=== PATIENT | female | born 1945 | race Caucasian/White ===

== ENCOUNTER 2016-03-05 08:20 | Outpatient (CLI) | payer MEDICARE | END 2016-03-05 08:21 | disposition home or self-care (01) | DX: R73.09 Other abnormal glucose (principal); E55.9 Vitamin D deficiency, unspecified; Z79.899 Other long term (current) drug therapy ==

== ENCOUNTER 2016-04-02 08:58 | Outpatient (CLI) | payer MEDICARE ==
[2016-04-02 09:36] LABS: ALBUMIN/GLOBULIN RATIO 0.6 (1.0-2.2); BILIRUBIN,TOTAL 0.7 mg/dL (0.2-1.0); CALCIUM 8.9 mg/dL (8.5-10.3); CREATININE 0.7 mg/dL (0.4-1.0); POTASSIUM 3.7 mmol/L (3.5-5.0); TOTAL PROTEIN 8.1 g/dL (6.7-8.2)
[2016-04-02 09:45] LABS: BASOPHILS # (AUTO) 0.1 10^3/uL (0.0-0.1); BASOPHILS % (AUTO) 0.7 %; EOSINOPHILS # (AUTO) 0.5 10^3/uL (0.0-0.7); EOSINOPHILS % (AUTO) 5.4 %; HGB - HEMOGLOBIN 10.6 g/dL (12.0-16.0); LYMPHOCYTES % (AUTO) 21.7 %; MEAN CORPUSCULAR HEMOGLOBIN 24.8 pg (27.0-31.0); MEAN CORPUSCULAR HGB CONC 32.2 g/dL (32.0-36.0); MEAN CORPUSCULAR VOLUME 77.1 fL (81.0-99.0); MEAN PLATELET VOLUME 6.9 fL (7.9-10.8); MONOCYTES # (AUTO) 0.7 10^3/uL (0.0-1.0); MONOCYTES % (AUTO) 7.7 %; NEUTROPHILS # (AUTO) 5.9 10^3/uL (1.5-6.6); NEUTROPHILS % (AUTO) 64.5 %; RED BLOOD COUNT 4.29 10^6/uL (4.20-5.40); RED CELL DISTRIBUTION WIDTH 16.4 % (12.0-15.0); UNCORRECTED WHITE BLOOD COUNT 9.2 x10^3/uL; WHITE BLOOD COUNT 9.2 x10^3/uL (4.8-10.8)
== END 2016-04-02 08:59 | disposition home or self-care (01) ==
LOC: LAB 08:58
PROVIDERS: ATTEND Orthopaedic Surgery
DX: Z01.812 Encounter for preprocedural laboratory examination (principal); M17.12 Unilateral primary osteoarthritis, left knee
CPT/HCPCS: 36415; 80053; 85025

== ENCOUNTER 2016-04-06 08:31 | Outpatient (CLI) | payer MEDICARE | END 2016-04-06 08:32 | disposition home or self-care (01) | DX: D64.9 Anemia, unspecified (principal) ==

== ENCOUNTER 2016-04-13 11:09 | Outpatient (CLI) | payer MEDICARE | END 2016-04-13 11:10 | disposition home or self-care (01) | DX: D64.9 Anemia, unspecified (principal) ==

== ENCOUNTER 2016-05-11 11:20 | Day surgery (SDC) | payer MEDICARE ==
[2016-05-11] MEDS ORDERED: LACTATED RINGERS 1,000 ML IV ONE (11:49)
[2016-05-11] MEDS ORDERED: fentaNYL 100 MCG/2 ML VIAL IVP ONE (13:20)
[2016-05-11] MEDS ORDERED: MIDAZOLAM 2 MG/2 ML VIAL IVP ONE (13:20)
[2016-05-11] MEDS ORDERED: SIMETHICONE 40 MG/0.6 ML 30 ML BOTTLE PO ONE (13:28)
== END 2016-05-11 11:21 | disposition home or self-care (01) ==
PROC: 0DB38ZX Excision of Lower Esophagus, Via Natural or Artificial Opening Endoscopic, Diagnostic (ICD-10-PCS; principal; 2016-05-11 12:30)
DX: D64.9 Anemia, unspecified (principal); Z80.0 Family history of malignant neoplasm of digestive organs; K20.9 Esophagitis, unspecified
CPT/HCPCS: 43239; A9270; J7120

== ENCOUNTER 2016-06-02 06:39 | Outpatient (CLI) | payer MEDICARE | END 2016-06-02 06:40 | disposition home or self-care (01) | DX: D64.9 Anemia, unspecified (principal) ==

== ENCOUNTER 2016-06-15 10:54 | Day surgery (SDC) | payer MEDICARE ==
[2016-06-15] MEDS ORDERED: LACTATED RINGERS 1,000 ML IV ONE (11:15)
[2016-06-15] MEDS ORDERED: fentaNYL 250 MCG/5 ML VIAL IVP ONE (14:38)
[2016-06-15] MEDS ORDERED: MIDAZOLAM 2 MG/2 ML VIAL IVP ONE (14:38)
== END 2016-06-15 10:55 | disposition home or self-care (01) ==
PROC: 0DBE8ZX Excision of Large Intestine, Via Natural or Artificial Opening Endoscopic, Diagnostic (ICD-10-PCS; principal; 2016-06-15 12:00)
DX: D50.9 Iron deficiency anemia, unspecified (principal); K64.8 Other hemorrhoids; K63.89 Other specified diseases of intestine; Z80.0 Family history of malignant neoplasm of digestive organs; F17.200 Nicotine dependence, unspecified, uncomplicated
CPT/HCPCS: 45380; J3010; J7120

== ENCOUNTER 2016-07-01 11:45 | Outpatient (CLI) | payer MEDICARE ==
[2016-07-01] MEDS ORDERED: IOVERSOL-300 50 ML VIAL PO ONE (13:28)
[2016-07-01] MEDS ORDERED: IOPAMIDOL-300 100 ML VIAL IVP ONE (13:28)
== END 2016-07-01 11:46 | disposition home or self-care (01) ==
DX: K63.9 Disease of intestine, unspecified (principal); R59.0 Localized enlarged lymph nodes
CPT/HCPCS: 36415; 74177; 82565; Q9967

== ENCOUNTER 2016-07-10 10:28 | Outpatient (CLI) | payer MEDICARE | END 2016-07-10 10:29 | disposition home or self-care (01) | LOC: RT 10:28 | PROVIDERS: ATTEND Student in an Organized Health Care Education/Training Program | DX: Z01.810 Encounter for preprocedural cardiovascular examination (principal); K63.89 Other specified diseases of intestine | CPT/HCPCS: 93005 ==

== ENCOUNTER 2016-07-14 10:27 | Inpatient (IN) | payer MEDICARE ==
[2016-07-14] MEDS ORDERED: fent/BUPIV 2 MCG/0.125% 0 ML EP ONE (10:35)
[2016-07-14] MEDS ORDERED: LACTATED RINGERS 1,000 ML IV ONE ×3 (10:40→14:19)
[2016-07-14] MEDS ORDERED: ONDANSETRON 4 MG/2 ML VIAL IVP PRN (10:57)
[2016-07-14] MEDS ORDERED: diphenhydrAMINE INJ 50 MG/ML VIAL IVP PRN (10:57)
[2016-07-14] MEDS ORDERED: NALBUPHINE 20 MG/ML AMP IVP PRN (10:57)
[2016-07-14] MEDS ORDERED: cefOXitin 2 GM in SODIUM CHLORIDE 0.9% MINIBAG 100 ML IV SCH (11:00)
[2016-07-14] MEDS ORDERED: ROCURONIUM 50 MG/5 ML VIAL IVP ONE (14:15)
[2016-07-14] MEDS ORDERED: ONDANSETRON 4 MG/2 ML VIAL IVP ONE (14:15)
[2016-07-14] MEDS ORDERED: PROPOFOL 200 MG/20 ML VIAL IVP ONE (14:15)
[2016-07-14] MEDS ORDERED: fentaNYL 100 MCG/2 ML VIAL IVP ONE (14:15)
[2016-07-14] MEDS ORDERED: LIDOCAINE-MPF 2% 5 ML VIAL IM ONE (14:15)
[2016-07-14] MEDS ORDERED: SUCCINYLCHOLINE 200 MG/10 ML VIAL IVP ONE (14:15)
[2016-07-14] MEDS ORDERED: ROPIVACAINE 0.5% PF 20 ML AMPULE EP ONE (14:15)
[2016-07-14] MEDS ORDERED: NEOSTIGMINE 1 MG/1 ML 10 ML MDV IVP ONE (14:15)
[2016-07-14] MEDS ORDERED: MIDAZOLAM 2 MG/2 ML VIAL IVP ONE (14:15)
[2016-07-14] MEDS ORDERED: DEXAMETHASONE 4 MG/ML VIAL IVP ONE (14:15)
[2016-07-14] MEDS ORDERED: GLYCOPYRROLATE 1 MG/5 ML VIAL IVP ONE (14:15)
[2016-07-14] MEDS ORDERED: fent/BUPIV 2 MCG/0.125% 250 ML EP ONE (16:20)
[2016-07-14] MEDS ORDERED: HYDROmorphone 1 MG/ML SYRINGE ONE (16:53)
[2016-07-14] MEDS ORDERED: PHENOL THROAT SPRAY 177 ML MM PRN (17:04)
--- NOTE | 2016-07-14 17:49 | OPERATIVE REPORT ---
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 - Procedure Note Primary Surgeon: Valeria Secondary Surgeon: Deloris Anesthesia Provider: Praful Zelaya Anesthesia Technique: Epidural, General ET tube Pathology: Left colon and partial left salpinx Estimated Blood Loss (in cc): 200 Complications: None - Other Other Information/Narrative: OPERATIVE DESCRIPTION/REPORT: After verbal and written informed consent was obtained detailing the risks of infection, bleeding requiring transfusion with its risks, nerve injury, and , and after I met with the patient confirming the surgery and the site of the surgery, the patient was brought to the operative suite and placed supine on the operating table. Great care was taken to avoid pressure points to prevent pressure necrosis or nerve injury. Monitoring devices were applied along with TEDs and pneumatic compressive stockings (to prevent DVT). The patient received preoperative antibiotics for surgical prophylaxis. Praful Zelaya sedated and anethetized the patient for the entire procedure. The patient was prepped and draped in the usual sterile manner. With the patient draped my initials were clearly visible. A "time in" then confirmed that the paitient was identified with 3 identifiers (name, birthdate and medical record number), the history and physical was in the chart, the signed consent confirming the procedure was in the chart, the patient was in the correct position, the aforementioned prophylactic measures were in place or given, we had the correct personnel and equipment to complete the procedure and that anesthesia, surgery and nursing were given an opportunuty to express any concerns. With the agreement of everyone in the room, we proceeded with the operation. A midline incision was made infraumbilically and taken down to the fascia. The incision extended from the umbilicus to above the pubic tubercle. Once this was taken down to the fascia, the fascia and peritoneum were opened without incident or difficulty. The sigmoid colon was markedly redundant. The sigmoid colon was examined and the large grapefuit size tumor was easily identified within the sigmoid. The mid-sigmoid colon was selected as the proximal point of resection and a DECLAN stapler was used to transect the colon at this point. The mesentery was then taken sequentially between Graham clamps and tied using 2-0 Vicryl ties. When the mesenteric vessels were encountered these were suture-ligated using 2-0 Vicryl. The dissection continued down to the peritoneal reflection. The posterior dissection was done using finger dissection along the sacrum whereas the peritoneal attachments both anteriorly and laterally were taken using Bovie electrocautery. The left ureter was identified and avoided. Larger vasculature along the pelvic sidewalls was ligated with 2-0 Vicryl. After dissecting beyond the tumor, an Ethicon Contour stapler was obtained and placed across the distal rectum and fired. The specimen was delivered from the operative field. A 31 mm EEA stapler was obtained. An automatic pursetring device was placed across the proximal sigmoid colon and a 3-0 Prolene on a Lazaro needle was used to form the purse string. After the stapled end was removed, the anvil was placed in the open and of the colon and the purse string tied against the post of the anvil. There was enough length to the colon for it to go into the pelvis without tension. I then serially dilated the patients anus with my fingers and water-soluble lubricant in order that the stapler could be inserted. The aforementioned EEA stapler was inserted into the patients rectum through the anus and carefully directed to the staple line by me. I advanced the spike under Dr. Puentes's direction and the anvil was placed over the spike. This was screwed down tight and the stapler was fired creating the colocolostomy. The pelvis was filled with warm sterile saline and the proximal colon was obstructed between Dr. Puentes's two fingers while I introduced air through the patients anus using a proctoscope. The anastamosis was airtight. I changed into a sterile gown and gloves. The liver was palpably normal. The abdomen was copiously irrigated with warm saline. The fascia was closed using a 0 looped PDS in a running fashion. The fascial closure was started superiorly and inferiorly and run to meet in the middle. The subcutaneous tissues were copiously irrigated using warm sterile saline and meticulous hemostasis was obtained using Bovie electrocautery. The skin was approximated using skin antione. Betadine ointment and a dressing were placed on the wound. All surgical counts were reported as correct twice. Having tolerated the procedure well, the patient was taken intubated to the recovery room in good and stable condition.
[2016-07-14] MEDS: SODIUM CHLORIDE FLUSH 0.9% 10 ML SYRINGE IVP SCH (18:46)
[2016-07-14] MEDS: D5NS W/20 MEQ KCL 1,000 ML IV SCH (18:46)
[2016-07-14] MEDS ORDERED: PIPERACILLIN/TAZOBACTAM 3.375 GM in SODIUM CHLORIDE 0.9% MINIBAG 100 ML IV SCH (19:00)
[2016-07-15] MEDS: D5NS W/20 MEQ KCL 1,000 ML IV SCH ×3 (03:45→23:53)
[2016-07-15] MEDS: SODIUM CHLORIDE FLUSH 0.9% 10 ML SYRINGE IVP SCH ×3 (05:12→20:44)
[2016-07-15 05:50] LABS: BASOPHILS % (AUTO) 0.2 %; HGB - HEMOGLOBIN 9.1 g/dL (12.0-16.0); MONOCYTES # (AUTO) 0.9 10^3/uL (0.0-1.0)
[2016-07-15 05:53] LABS: HCT - HEMATOCRIT 28.6 % (37.0-47.0); LYMPHOCYTES # (AUTO) 1.3 10^3/uL (1.5-3.5); LYMPHOCYTES % (AUTO) 11.8 %; MEAN CORPUSCULAR HEMOGLOBIN 25.7 pg (27.0-31.0); MEAN CORPUSCULAR HGB CONC 31.8 g/dL (32.0-36.0); MEAN CORPUSCULAR VOLUME 80.8 fL (81.0-99.0); MEAN PLATELET VOLUME 7.1 fL (7.9-10.8); MONOCYTES % (AUTO) 8.6 %; NEUTROPHILS # (AUTO) 8.7 10^3/uL (1.5-6.6); NEUTROPHILS % (AUTO) 79.4 %; RED BLOOD COUNT 3.54 10^6/uL (4.20-5.40); RED CELL DISTRIBUTION WIDTH 16.8 % (12.0-15.0)
[2016-07-15 06:03] LABS: ALBUMIN/GLOBULIN RATIO 0.6 (1.0-2.2); BILIRUBIN,TOTAL 0.6 mg/dL (0.2-1.0); CALCIUM 8.1 mg/dL (8.5-10.3); CREATININE 0.7 mg/dL (0.4-1.0); TOTAL PROTEIN 6.2 g/dL (6.7-8.2)
[2016-07-15] MEDS: PANTOPRAZOLE 40 MG VIAL IVP SCH (06:15)
[2016-07-15] MEDS: fent/BUPIV 2 MCG/0.125% 250 ML EP PRN (06:24)
--- NOTE | 2016-07-15 17:17 | PROVIDER PROGRESS NOTE ---
Subjective - General Admit Date: 07/14/16 Procedure Date: 07/14/16 Post Op Days: 1 Procedure Performed: Left hemicolectomy with colocolostomy and partial left salpingectomy - Review of Systems Wound/Incisions: positive: Dressing dry and intact General: positive: No symptoms HEENT: positive: No symptoms Pulmonary: positive: No symptoms Cardiovascular: positive: No symptoms Gastrointestinal: positive: Abdominal pain (Minimal well controlled with epidural. Patient is very happy she opted for epidural.) Genitourinary: positive: No symptoms (Navarro in place until epidural out.) Musculoskeletal: positive: No symptoms Skin: positive: No symptoms Psychiatric: positive: No symptoms Objective - Patient Data Reviewed Vital Signs: Yes Vital Signs: Vital Signs x48h Temp Pulse Resp BP Pulse Ox 07/15/16 12:39 36.5 C 84 16 109/68 96 Weight: Weight 07/13/16 07/14/16 07/15/16 23:59 23:59 23:59 Weight (kg) 84.1 kg Intake & Output: Intake and Output Totals x24h 07/13/16 07/14/16 07/15/16 23:59 23:59 23:59 Intake Total 3168 885 Output Total 525 775 Balance 2643 110 - Lab Results Lab Results: 07/15/16 05:30 07/15/16 05:30 Other Lab Results: Lab Results x24hrs 07/15/16 07/15/16 Range/Units 05:30 05:30 WBC 11.0 H (4.8-10.8) x10^3/uL RBC 3.54 L (4.20-5.40) 10^6/uL Hgb 9.1 L (12.0-16.0) g/dL Hct 28.6 L (37.0-47.0) % MCV 80.8 L (81.0-99.0) fL MCH 25.7 L (27.0-31.0) pg MCHC 31.8 L (32.0-36.0) g/dL RDW 16.8 H (12.0-15.0) % Plt Count 288 (130-450) 10^3/uL MPV 7.1 L (7.9-10.8) fL Neut # 8.7 H (1.5-6.6) 10^3/uL Lymph # 1.3 L (1.5-3.5) 10^3/uL Meigs # 0.9 (0.0-1.0) 10^3/uL Eos # 0.0 (0.0-0.7) 10^3/uL Baso # 0.0 (0.0-0.1) 10^3/uL Absolute Nucleated RBC 0.00 x10^3/uL Nucleated RBCs 0.0 /100WBC Sodium 138 (135-145) mmol/L Potassium 4.0 (3.5-5.0) mmol/L Chloride 105 (101-111) mmol/L Carbon Dioxide 27 (21-32) mmol/L Anion Gap 6.0 (6-13) BUN 11 (6-20) mg/dL Creatinine 0.7 (0.4-1.0) mg/dL Estimated GFR (MDRD) 83 L (>89) Glucose 177 H (70-100) mg/dL Calcium 8.1 L (8.5-10.3) mg/dL Total Bilirubin 0.6 (0.2-1.0) mg/dL AST 14 (10-42) IU/L ALT 10 (10-60) IU/L Alkaline Phosphatase 66 (42-121) IU/L Total Protein 6.2 L (6.7-8.2) g/dL Albumin 2.2 L (3.2-5.5) g/dL Globulin 4.0 (2.1-4.2) g/dL Albumin/Globulin Ratio 0.6 L (1.0-2.2) - Current Medications Current Medications: Current Medications Generic Name Dose Route Start Last Admin Trade Name Freq PRN Reason Stop Dose Admin Potassium Chloride/Dextrose/Sod Cl 1,000 mls @ 100 mls/hr 07/14/16 18:00 13:43 IV 100 mls/hr .Q10H ANGELIQUE Administration Pantoprazole Sodium 40 mg 07/15/16 07:00 07/15/16 06:15 Protonix IVP 40 mg QDAC ANGELIQUE Administration Sodium Chloride 10 ml 07/14/16 22:00 07/15/16 14:04 Normal Saline Flush 0.9% IVP Not Given Q8HR ANGELIQUE - Physical Exam Wound/Incisions: positive: Dressing dry and intact General Appearance: positive: No acute distress (Watching a movie with headphones on.) Eyes Bilateral: positive: No lid inflammation, Conjunctivae nml, No scleral icterus Neck: positive: Trachea midline Respiratory: positive: Chest non-tender, No respiratory distress, Breath sounds nml Cardiovascular: positive: Regular rate & rhythm, No murmur, No gallop Abdomen: positive: Tenderness (Minimal at incision.), Abnml bowel sounds ( Decreased.) Skin: positive: Color nml Extremities: positive: Non-tender, Nml appearance Neurologic/Psychiatric: positive: Oriented x3 Impression/Plan - Problem List Problem List: D1 s/p LEFT hemicolectomy with colocolostomy and partial LEFT salpingectomy 1) FEN Continue IVF at current rate. Think that decreased H&H is dilutional and as soon as patient diureses on POD#3 expect to see rise in H&H. Continue 1000 mL of ice chips and sips daily. Check labs on Wednesday AM. 2) Pathology Expect diverticulitis as diagnosis and not malignancy but pathology is still pending. 3) Activity Patient up out of bed already twice today with one more planned. 4) Navarro Out with epidural. 5) Pain Well controlled with epidural. Really appreciate anesthesia following patient and placing epidural.
[2016-07-16] MEDS: SODIUM CHLORIDE FLUSH 0.9% 10 ML SYRINGE IVP SCH ×3 (05:52→20:23)
[2016-07-16] MEDS: PANTOPRAZOLE 40 MG VIAL IVP SCH (05:52)
[2016-07-16] MEDS: fent/BUPIV 2 MCG/0.125% 250 ML EP PRN (07:33)
[2016-07-16] MEDS: D5NS W/20 MEQ KCL 1,000 ML IV SCH ×2 (09:40→20:15)
--- NOTE | 2016-07-16 14:34 | PROVIDER PROGRESS NOTE ---
Subjective - General Admit Date: 07/14/16 Procedure Date: 07/14/16 Post Op Days: 2 Procedure Performed: Left hemicolectomy with colocolostomy and partial left salpingectomy - Review of Systems Wound/Incisions: positive: Dressing dry and intact General: positive: No symptoms HEENT: positive: No symptoms Pulmonary: positive: No symptoms Cardiovascular: positive: No symptoms Gastrointestinal: positive: Abdominal pain (Minimal well controlled with epidural. Patient is very happy she opted for epidural.) Genitourinary: positive: No symptoms (Navarro in place until epidural out.) Musculoskeletal: positive: No symptoms Skin: positive: No symptoms Psychiatric: positive: No symptoms - Other Other Information/Narrative: Pt seen at bedside. She states pain has been well controlled. she has been ambulating with PT. using IS. Has not had BM or Flatus. No issues reported by RN. Objective - Patient Data Reviewed Vital Signs: Yes Vital Signs: Vital Signs x48h Temp Pulse Resp BP Pulse Ox 07/16/16 12:11 36.7 C 85 18 133/76 H 94 07/16/16 08:36 36.5 C 84 16 146/85 H 92 Weight: Weight 07/14/16 07/15/16 07/16/16 23:59 23:59 23:59 Weight (kg) 84.1 kg Intake & Output: Intake and Output Totals x24h 07/14/16 07/15/16 07/16/16 23:59 23:59 23:59 Intake Total 3168 1900 767 Output Total 525 1525 1250 Balance 2643 358 -274 - Lab Results Lab Results: 07/15/16 05:30 07/15/16 05:30 - Current Medications Current Medications: Current Medications Generic Name Dose Route Start Last Admin Trade Name Freq PRN Reason Stop Dose Admin Fentanyl/Bupivacaine/Sodium Chlor 250 mls @ 0 mls/hr 07/14/16 10:57 07/16/16 07 :33 Fent/Bupiv 2 Mcg/0.125% EP 30 mls/hr .Q0M PRN Administration PAIN Protocol Per Protocol Potassium Chloride/Dextrose/Sod Cl 1,000 mls @ 100 mls/hr 07/14/16 18:00 09:40 IV 100 mls/hr .Q10H ANGELIQUE Administration Pantoprazole Sodium 40 mg 07/15/16 07:00 07/16/16 05:52 Protonix IVP 40 mg QDAC ANGELIQUE Administration Sodium Chloride 10 ml 07/14/16 22:00 07/16/16 05:52 Normal Saline Flush 0.9% IVP Not Given Q8HR ANGELIQUE - Physical Exam Wound/Incisions: positive: Dressing dry and intact. negative: Drainage, Erythema (Dressing changed. No erythema or discharge. staple line intact) General Appearance: positive: No acute distress Eyes Bilateral: positive: EOMI ENT: positive: No signs of dehydration Respiratory: positive: Breath sounds nml. negative: Wheezes, Rales, Rhonchi Cardiovascular: positive: Regular rate & rhythm Abdomen: positive: Nml bowel sounds (+BS, soft,ND,TTP appropriately at surgical site. No erythema, fluctuance or discharge) Skin: positive: Warm, Dry Extremities: positive: Non-tender (DP/PT 2/4 B/L, No calf edema. Ar cui inplace. Negative Uma's B/L) Neurologic/Psychiatric: positive: Oriented x3 Impression/Plan - Problem List Problem List: Problem List: D1 s/p Left hemicolectomy with colocolostomy and partial LEFT salpingectomy POD# 2 1) FEN Continue IVF at current rate. 1000mL of Ice chips/sips daily 2) Pathology pending 3) Activity OOB with PT 4) Continue Navarro for epidural 5) Pain Well controlled with epidural. Really appreciate anesthesia following patient and placing epidural. 6) Am labs GI prophylaxis: Protonix DVT prophylaxis: Ar cui scds, will begin HSQ
[2016-07-16] MEDS: HEPARIN 5,000 UNIT/ML VIAL SUBQ SCH (20:15)
[2016-07-17] MEDS: D5NS W/20 MEQ KCL 1,000 ML IV SCH ×2 (04:51→15:55)
[2016-07-17] MEDS: SODIUM CHLORIDE FLUSH 0.9% 10 ML SYRINGE IVP SCH ×3 (05:06→23:29)
[2016-07-17 06:07] LABS: BASOPHILS % (AUTO) 0.7 %; EOSINOPHILS # (AUTO) 0.4 10^3/uL (0.0-0.7); EOSINOPHILS % (AUTO) 5.8 %; HCT - HEMATOCRIT 29.1 % (37.0-47.0); HGB - HEMOGLOBIN 9.2 g/dL (12.0-16.0); LYMPHOCYTES # (AUTO) 1.9 10^3/uL (1.5-3.5); LYMPHOCYTES % (AUTO) 27.4 %; MEAN CORPUSCULAR HEMOGLOBIN 25.7 pg (27.0-31.0); MEAN CORPUSCULAR HGB CONC 31.6 g/dL (32.0-36.0); MEAN CORPUSCULAR VOLUME 81.5 fL (81.0-99.0); MEAN PLATELET VOLUME 7.1 fL (7.9-10.8); MONOCYTES # (AUTO) 0.6 10^3/uL (0.0-1.0); MONOCYTES % (AUTO) 8.8 %; NEUTROPHILS % (AUTO) 57.3 %; RED BLOOD COUNT 3.58 10^6/uL (4.20-5.40); RED CELL DISTRIBUTION WIDTH 16.5 % (12.0-15.0); UNCORRECTED WHITE BLOOD COUNT 7.1 x10^3/uL; WHITE BLOOD COUNT 7.1 x10^3/uL (4.8-10.8)
[2016-07-17 06:18] LABS: ALBUMIN/GLOBULIN RATIO 0.5 (1.0-2.2); BILIRUBIN,TOTAL 0.5 mg/dL (0.2-1.0); BUN - BLOOD UREA NITROGEN 5 mg/dL (6-20); CALCIUM 8.6 mg/dL (8.5-10.3); CARBON DIOXIDE - CO2 29 mmol/L (21-32); CHLORIDE 103 mmol/L (101-111); CREATININE 0.7 mg/dL (0.4-1.0); GFR - MDRD 83 (>89); GLUCOSE 133 mg/dL (70-100); POTASSIUM 3.7 mmol/L (3.5-5.0); SODIUM 138 mmol/L (135-145); TOTAL PROTEIN 6.5 g/dL (6.7-8.2)
[2016-07-17] MEDS: PANTOPRAZOLE 40 MG VIAL IVP SCH (06:22)
[2016-07-17] MEDS: SODIUM CHLORIDE FLUSH 0.9% 10 ML SYRINGE IVP PRN (06:22)
[2016-07-17] MEDS: HEPARIN 5,000 UNIT/ML VIAL SUBQ SCH ×2 (09:33→22:01)
[2016-07-17] MEDS: fent/BUPIV 2 MCG/0.125% 250 ML EP PRN (16:20)
[2016-07-17] MEDS ORDERED: MORPHINE PCA 50 MG IV PRN (21:23)
--- NOTE | 2016-07-17 23:21 | PROVIDER PROGRESS NOTE ---
Subjective - General Admit Date: 07/14/16 Procedure Date: 07/14/16 Post Op Days: 3 Procedure Performed: Left hemicolectomy with colocolostomy and partial left salpingectomy - Review of Systems Wound/Incisions: positive: Dressing dry and intact, No drainage. negative: Drainage, Erythema (Dressing changed. No erythema or discharge. staple line intact) General: positive: No symptoms HEENT: positive: No symptoms Pulmonary: positive: No symptoms Cardiovascular: positive: No symptoms Gastrointestinal: positive: Abdominal pain (Minimal well controlled with epidural. Patient is very happy she opted for epidural.) Genitourinary: positive: No symptoms Musculoskeletal: positive: No symptoms Skin: positive: No symptoms Psychiatric: positive: No symptoms - Other Other Information/Narrative: pt seen at bedside, No complaints. Ambulating with PT, Using IS. No BM or flatus Objective - Patient Data Reviewed Vital Signs: Yes Vital Signs: Vital Signs x48h Temp Pulse Resp BP Pulse Ox 07/17/16 17:10 36.4 C L 75 16 128/80 97 Intake & Output: Intake and Output Totals x24h 07/15/16 07/16/16 07/17/16 23:59 23:59 23:59 Intake Total 1900 867 781 Output Total 1525 9120 8960 Balance 741 -9588 -1908 - Lab Results Lab Results: 07/17/16 05:26 07/17/16 05:26 Other Lab Results: Lab Results x24hrs 07/17/16 07/17/16 Range/Units 05:26 05:26 WBC 7.1 (4.8-10.8) x10^3/uL RBC 3.58 L (4.20-5.40) 10^6/uL Hgb 9.2 L (12.0-16.0) g/dL Hct 29.1 L (37.0-47.0) % MCV 81.5 (81.0-99.0) fL MCH 25.7 L (27.0-31.0) pg MCHC 31.6 L (32.0-36.0) g/dL RDW 16.5 H (12.0-15.0) % Plt Count 273 (130-450) 10^3/uL MPV 7.1 L (7.9-10.8) fL Neut # 4.0 (1.5-6.6) 10^3/uL Lymph # 1.9 (1.5-3.5) 10^3/uL Gregory # 0.6 (0.0-1.0) 10^3/uL Eos # 0.4 (0.0-0.7) 10^3/uL Baso # 0.0 (0.0-0.1) 10^3/uL Absolute Nucleated RBC 0.00 x10^3/uL Nucleated RBCs 0.0 /100WBC Sodium 138 (135-145) mmol/L Potassium 3.7 (3.5-5.0) mmol/L Chloride 103 (101-111) mmol/L Carbon Dioxide 29 (21-32) mmol/L Anion Gap 6.0 (6-13) BUN 5 L (6-20) mg/dL Creatinine 0.7 (0.4-1.0) mg/dL Estimated GFR (MDRD) 83 L (>89) Glucose 133 H (70-100) mg/dL Calcium 8.6 (8.5-10.3) mg/dL Total Bilirubin 0.5 (0.2-1.0) mg/dL AST 14 (10-42) IU/L ALT < 10 L (10-60) IU/L Alkaline Phosphatase 65 (42-121) IU/L Total Protein 6.5 L (6.7-8.2) g/dL Albumin 2.3 L (3.2-5.5) g/dL Globulin 4.2 (2.1-4.2) g/dL Albumin/Globulin Ratio 0.5 L (1.0-2.2) - Current Medications Current Medications: Current Medications Generic Name Dose Route Start Last Admin Trade Name Freq PRN Reason Stop Dose Admin Heparin Sodium (Porcine) 5,000 unit 07/16/16 21:00 07/17/16 22:01 SUBQ Not Given BID ANGELIQUE Fentanyl/Bupivacaine/Sodium Chlor 250 mls @ 0 mls/hr 07/14/16 10:57 07/17/16 16 :20 Fent/Bupiv 2 Mcg/0.125% EP 2 mls/hr .Q0M PRN Administration PAIN Protocol Per Protocol Potassium Chloride/Dextrose/Sod Cl 1,000 mls @ 100 mls/hr 07/14/16 18:00 15:55 IV 100 mls/hr .Q10H ANGELIQUE Administration Morphine Sulfate/Sodium Chloride 50 mg 07/17/16 21:23 07/17/16 22:21 Morphine Patient Care Manager (Use Patient Care Manager Order Set) IV 50 mg OFFICE HELPER CLERICAL PRN Administration PAIN Protocol Pantoprazole Sodium 40 mg 07/15/16 07:00 07/17/16 06:22 Protonix IVP 40 mg QDAC ANGELIQUE Administration Sodium Chloride 10 ml 07/14/16 17:04 07/17/16 06:22 Normal Saline Flush 0.9% IVP 10 ml PRN PRN Administration NEEDED PER PROVIDER ORDERS Sodium Chloride 10 ml 07/14/16 22:00 07/17/16 14:51 Normal Saline Flush 0.9% IVP Not Given Q8HR ANGELIQUE - Physical Exam Wound/Incisions: positive: Healing well, No drainage General Appearance: positive: Alert Eyes Bilateral: positive: EOMI ENT: positive: No signs of dehydration Respiratory: positive: Chest non-tender, Breath sounds nml Abdomen: positive: No distention (Hypoactive BS, Soft, NT, No distention) Skin: positive: Warm, Dry Extremities: positive: Full ROM Impression/Plan - Problem List Problem List: D1 s/p Left hemicolectomy with colocolostomy and partial LEFT salpingectomy POD# 3 FEN Continue IVF at current rate. 1000mL of Ice chips/sips daily Epidural to be removed by anesthesia. Will begin morphine OFFICE HELPER CLERICAL IV acetaminophen. Continue ambulation. Continue IS. Continue SCD'S, and Gi prophylaxis
[2016-07-17] MEDS: ACETAMINOPHEN 1,000 MG/100 ML 100 ML IV SCH (23:48)
[2016-07-18] MEDS: D5NS W/20 MEQ KCL 1,000 ML IV SCH ×2 (01:27→10:13)
[2016-07-18] MEDS: SODIUM CHLORIDE FLUSH 0.9% 10 ML SYRINGE IVP PRN (04:57)
[2016-07-18] MEDS: ACETAMINOPHEN 1,000 MG/100 ML 100 ML IV SCH ×4 (05:07→21:44)
[2016-07-18] MEDS: PANTOPRAZOLE 40 MG VIAL IVP SCH (06:39)
[2016-07-18] MEDS: SODIUM CHLORIDE FLUSH 0.9% 10 ML SYRINGE IVP SCH ×3 (06:39→21:44)
[2016-07-18] MEDS: HEPARIN 5,000 UNIT/ML VIAL SUBQ SCH (09:11)
[2016-07-18] MEDS ORDERED: D5NS W/20 MEQ KCL 1,000 ML IV SCH (12:06)
--- NOTE | 2016-07-18 12:09 | PROVIDER PROGRESS NOTE ---
Subjective - General Admit Date: 07/14/16 Procedure Date: 07/14/16 Post Op Days: 4 Procedure Performed: Left hemicolectomy with colocolostomy and partial left salpingectomy - Review of Systems Wound/Incisions: positive: Healing well, No drainage General: positive: No symptoms HEENT: positive: No symptoms Pulmonary: positive: No symptoms Cardiovascular: positive: No symptoms Gastrointestinal: positive: Abdominal pain (Minimal well controlled with epidural. Patient is very happy she opted for epidural.) Genitourinary: positive: No symptoms Musculoskeletal: positive: No symptoms Skin: positive: No symptoms Psychiatric: positive: No symptoms - Other Other Information/Narrative: Pt seen at bedside. No C/O . Ambulating, using IS, Passed flatus. Pain well controlled. Urinating well. No events reported by RN Objective - Patient Data Vital Signs: Vital Signs x48h Temp Pulse Resp BP Pulse Ox 07/18/16 11:00 18 07/18/16 09:00 16 07/18/16 07:36 36.5 C 69 18 118/76 97 07/18/16 07:00 16 07/18/16 06:57 16 07/18/16 05:10 16 Intake & Output: Intake and Output Totals x24h 07/16/16 07/17/16 07/18/16 23:59 23:59 23:59 Intake Total 867 1922 883 Output Total 3550 3650 1425 [facility] -[phone] - Lab Results Lab Results: 07/17/16 05:26 07/17/16 05:26 - Current Medications Current Medications: Current Medications Generic Name Dose Route Start Last Admin Trade Name Freq PRN Reason Stop Dose Admin Heparin Sodium (Porcine) 5,000 unit 07/16/16 21:00 07/18/16 09:11 SUBQ 5,000 unit BID ANGELIQUE Administration Fentanyl/Bupivacaine/Sodium Chlor 250 mls @ 0 mls/hr 07/14/16 10:57 07/17/16 16 :20 Fent/Bupiv 2 Mcg/0.125% EP 2 mls/hr .Q0M PRN Administration PAIN Protocol Per Protocol Acetaminophen 100 mls @ 400 mls/hr 07/17/16 22:00 07/18/16 10:10 Ofirmev IV 07/19/16 21:59 400 mls/hr Q6H ANGELIQUE Administration Morphine Sulfate/Sodium Chloride 50 mg 07/17/16 21:23 07/17/16 22:21 Morphine Field Cane Scaler (Use Field Cane Scaler Order Set) IV 50 mg RAYON WINDER PRN Administration PAIN Protocol Pantoprazole Sodium 40 mg 07/15/16 07:00 07/18/16 06:39 Protonix IVP 40 mg QDAC ANGELIQUE Administration Sodium Chloride 10 ml 07/14/16 17:04 07/18/16 04:57 Normal Saline Flush 0.9% IVP 10 ml PRN PRN Administration NEEDED PER PROVIDER ORDERS Sodium Chloride 10 ml 07/14/16 22:00 07/18/16 11:36 Normal Saline Flush 0.9% IVP Not Given Q8HR ANGELIQUE - Physical Exam Wound/Incisions: positive: Healing well General Appearance: positive: No acute distress Eyes Bilateral: positive: EOMI ENT: positive: No signs of dehydration Respiratory: positive: Breath sounds nml Cardiovascular: positive: Regular rate & rhythm Abdomen: positive: Nml bowel sounds (+bs, soft, ND, minimal TTP at surgical line. No erythema or discharge. Staple line intact.) Skin: positive: Warm, Dry Extremities: positive: Nml appearance. negative: No pedal edema, Calf tenderness, Uma's sign/cords Neurologic/Psychiatric: positive: Oriented x3, CN's nml (2-12) Impression/Plan - Problem List Problem List: s/p Left hemicolectomy with colocolostomy and partial LEFT salpingectomy POD#4 Patient having Flatus Will advance diet to clears. Decreas IVF. Will begin morphine RAYON WINDER IV acetaminophen. Continue ambulation. Continue IS. Continue SCD'S, and Gi prophylaxis
[2016-07-18] MEDS: ENOXAPARIN 40 MG/0.4 ML SYRINGE SUBQ SCH (13:55)
[2016-07-19] MEDS: ACETAMINOPHEN 1,000 MG/100 ML 100 ML IV SCH ×2 (04:07→09:22)
[2016-07-19] MEDS: PANTOPRAZOLE 40 MG VIAL IVP SCH (06:32)
[2016-07-19] MEDS: SODIUM CHLORIDE FLUSH 0.9% 10 ML SYRINGE IVP SCH ×3 (06:33→22:08)
[2016-07-19] MEDS: ENOXAPARIN 40 MG/0.4 ML SYRINGE SUBQ SCH (09:22)
--- NOTE | 2016-07-19 10:29 | PROVIDER PROGRESS NOTE ---
Subjective - General Admit Date: 07/14/16 Procedure Date: 07/14/16 Post Op Days: 5 Procedure Performed: Left hemicolectomy with colocolostomy and partial left salpingectomy - Review of Systems Wound/Incisions: positive: Healing well, No drainage General: positive: No symptoms HEENT: positive: No symptoms Pulmonary: positive: No symptoms Cardiovascular: positive: No symptoms Gastrointestinal: positive: Abdominal pain (Minimal well controlled with epidural. Patient is very happy she opted for epidural.) Genitourinary: positive: No symptoms Musculoskeletal: positive: No symptoms Skin: positive: No symptoms Psychiatric: positive: No symptoms - Other Other Information/Narrative: Pt seen at bedside. Ambulating well. Tolerated regular diet. using IS. + Flatus No stool. pain controlled with RN MATERNITY Objective - Patient Data Vital Signs: Vital Signs x48h Temp Pulse Resp BP Pulse Ox 07/19/16 07:39 36.7 C 69 16 129/80 98 07/19/16 06:35 18 07/19/16 03:34 16 Intake & Output: Intake and Output Totals x24h 07/17/16 07/18/16 07/19/16 23:59 23:59 23:59 Intake Total 1922 2405 454 Output Total 3650 1425 Balance -1728 980 454 - Lab Results Lab Results: 07/17/16 05:26 07/17/16 05:26 - Current Medications Current Medications: Current Medications Generic Name Dose Route Start Last Admin Trade Name Freq PRN Reason Stop Dose Admin Enoxaparin Sodium 40 mg 07/18/16 13:00 07/19/16 09:22 Lovenox SUBQ 40 mg DAILY ANGELIQUE Administration Fentanyl/Bupivacaine/Sodium Chlor 250 mls @ 0 mls/hr 07/14/16 10:57 07/17/16 16 :20 Fent/Bupiv 2 Mcg/0.125% EP 2 mls/hr .Q0M PRN Administration PAIN Protocol Per Protocol Acetaminophen 100 mls @ 400 mls/hr 07/17/16 22:00 07/19/16 09:22 Ofirmev IV 07/19/16 21:59 400 mls/hr Q6H ANGELIQUE Administration Potassium Chloride/Dextrose/Sod Cl 1,000 mls @ 30 mls/hr 07/18/16 12:06 13:58 IV 30 mls/hr .[id number] ANGELIQUE Administration Morphine Sulfate/Sodium Chloride 50 mg 07/17/16 21:23 07/17/16 22:21 Morphine Anesthesiology Physician Assistant (Use Anesthesiology Physician Assistant Order Set) IV 50 mg RN MATERNITY PRN Administration PAIN Protocol Pantoprazole Sodium 40 mg 07/15/16 07:00 07/19/16 06:32 Protonix IVP 40 mg QDAC ANGELIQUE Administration Sodium Chloride 10 ml 07/14/16 17:04 07/18/16 04:57 Normal Saline Flush 0.9% IVP 10 ml PRN PRN Administration NEEDED PER PROVIDER ORDERS Sodium Chloride 10 ml 07/14/16 22:00 07/19/16 06:33 Normal Saline Flush 0.9% IVP 10 ml Q8HR ANGELIQUE Administration - Physical Exam Wound/Incisions: positive: Healing well, No drainage. negative: Erythema General Appearance: positive: No acute distress, Alert Eyes Bilateral: positive: EOMI ENT: positive: No signs of dehydration Respiratory: positive: Breath sounds nml Cardiovascular: positive: Regular rate & rhythm Abdomen: positive: Nml bowel sounds (+BS, soft ND, mild tenderness at surgical site no erythema or discharge or fluctuance at surgica site.) Back: positive: Nml inspection Skin: positive: Warm, Dry Extremities: positive: Nml appearance. negative: Calf tenderness, Uma's sign/ cords Neurologic/Psychiatric: positive: Oriented x3, CN's nml (2-12) Impression/Plan - Problem List Problem List: s/p Left hemicolectomy with colocolostomy and partial LEFT salpingectomy POD#5 Will wean off RN MATERNITY Pathology: Negative for malignancy, diverticulitis with peridiverticular non- perforated abscess Continue ambulation. Continue IS. Continue regular diet. Continue SCD'S, and Gi prophylaxis Discharge planning
[2016-07-19] MEDS ORDERED: ACETAMINOPHEN 325 MG TABLET PO PRN (10:39)
[2016-07-19] MEDS ORDERED: MORPHINE PCA 50 MG IV PRN (10:44)
[2016-07-19] MEDS: HYDROcod/ACETAM 5/325 MG TABLET PO PRN ×3 (12:56→22:14)
[2016-07-19] MEDS: IBUPROFEN 600 MG TABLET PO SCH ×2 (12:56→18:55)
[2016-07-19] MEDS: D5NS W/20 MEQ KCL 1,000 ML IV SCH (12:56)
[2016-07-20] MEDS: IBUPROFEN 600 MG TABLET PO SCH ×4 (00:10→18:08)
[2016-07-20] MEDS: PANTOPRAZOLE 40 MG TABLET PO SCH (06:12)
[2016-07-20] MEDS: SODIUM CHLORIDE FLUSH 0.9% 10 ML SYRINGE IVP SCH ×3 (07:58→20:18)
[2016-07-20] MEDS: ENOXAPARIN 40 MG/0.4 ML SYRINGE SUBQ SCH (09:33)
--- NOTE | 2016-07-20 13:59 | PROVIDER PROGRESS NOTE ---
Subjective - General Admit Date: 07/14/16 Procedure Date: 07/14/16 Post Op Days: 6 Procedure Performed: Left hemicolectomy with colocolostomy and partial left salpingectomy - Review of Systems Wound/Incisions: positive: Healing well, No drainage. negative: Erythema General: positive: No symptoms HEENT: positive: No symptoms Pulmonary: positive: No symptoms Cardiovascular: positive: No symptoms Gastrointestinal: positive: Abdominal pain (minimal), Diarrhea (non-foul smelling) Genitourinary: positive: No symptoms Musculoskeletal: positive: No symptoms Skin: positive: No symptoms Psychiatric: positive: No symptoms - Other Other Information/Narrative: Pt seen at bedside, Ambulating, having loose BM, Tolerating diet , using IS, pain well controlled. no other events reported Objective - Patient Data Reviewed Vital Signs: Yes Vital Signs: Vital Signs x48h Temp Pulse Resp BP Pulse Ox 07/20/16 09:26 36.5 C 82 18 125/78 97 Intake & Output: Intake and Output Totals x24h 07/18/16 07/19/16 07/20/16 23:59 23:59 23:59 Intake Total 2405 1333 757 Output Total 1425 950 Balance 980 1333 -193 - Lab Results Lab Results: 07/17/16 05:26 07/17/16 05:26 - Current Medications Current Medications: Current Medications Generic Name Dose Route Start Last Admin Trade Name Freq PRN Reason Stop Dose Admin Acetaminophen/Hydrocodone Bitart 1 tab 07/19/16 10:39 07/19/16 22:14 Floyd 5/325 PO 1 tab Q4HR PRN Administration Pain 5 to 7 Enoxaparin Sodium 40 mg 07/18/16 13:00 07/20/16 09:33 Lovenox SUBQ 40 mg DAILY ANGELIQUE Administration Potassium Chloride/Dextrose/Sod Cl 1,000 mls @ 30 mls/hr 07/19/16 10:43 12:56 IV 30 mls/hr .[id number] ANGELIQUE Administration Ibuprofen 600 mg 07/19/16 12:00 07/20/16 12:18 Motrin PO 07/21/16 11:59 600 mg Q6HR ANGELIQUE Administration Pantoprazole Sodium 40 mg 07/20/16 07:00 07/20/16 06:12 Protonix PO 40 mg QDAC ANGELIQUE Administration Sodium Chloride 10 ml 07/14/16 17:04 07/18/16 04:57 Normal Saline Flush 0.9% IVP 10 ml PRN PRN Administration NEEDED PER PROVIDER ORDERS Sodium Chloride 10 ml 07/14/16 22:00 07/20/16 12:19 Normal Saline Flush 0.9% IVP Not Given Q8HR ANGELIQUE - Physical Exam Wound/Incisions: positive: Healing well General Appearance: positive: No acute distress ENT: positive: No signs of dehydration Respiratory: positive: Breath sounds nml Cardiovascular: positive: Regular rate & rhythm Abdomen: positive: Non-tender Extremities: positive: Non-tender. negative: Pedal edema, Calf tenderness, Uma's sign/cords Neurologic/Psychiatric: positive: Oriented x3, CN's nml (2-12) Impression/Plan - Problem List Problem List: s/p Left hemicolectomy with colocolostomy and partial LEFT salpingectomy POD#5 will monitor diarrhea, expected finding. Pathology: Negative for malignancy, diverticulitis with peridiverticular non- perforated abscess Continue ambulation. Continue IS. Continue regular diet. Continue SCD'S, and Gi prophylaxis Discharge planning for possible AM
[2016-07-20] MEDS: HYDROcod/ACETAM 5/325 MG TABLET PO PRN (20:18)
[2016-07-20] MEDS: D5NS W/20 MEQ KCL 1,000 ML IV SCH (20:20)
[2016-07-21] MEDS: IBUPROFEN 600 MG TABLET PO SCH ×2 (02:30→05:41)
[2016-07-21] MEDS: PANTOPRAZOLE 40 MG TABLET PO SCH (05:40)
[2016-07-21] MEDS: SODIUM CHLORIDE FLUSH 0.9% 10 ML SYRINGE IVP SCH ×2 (05:41→14:11)
[2016-07-21] MEDS: ENOXAPARIN 40 MG/0.4 ML SYRINGE SUBQ SCH (09:00)
[2016-07-21] MEDS ORDERED: LOPERAMIDE 2 MG CAPSULE PO SCH (14:00)
--- NOTE | 2016-07-21 16:11 | Discharge Plan ---
Discharge Plan Disposition: Home, Self Care Condition: Good Prescriptions: HYDROcod/ACETAM 5/325 [[place] 5/325] 1 tab PO Q4HR PRN #30 tablet PRN Reason: Pain 5 to 7 Diet: Regular Activity Restrictions: No Restrictions (No lifting greater than 15 pounds for 6 weeks from the opeartion.) Shower Restrictions: No Driving Restrictions: No Weight Bearing: Full Weight Additional Instructions or Follow Up instructions: Contact me with any surgical questions or concerns . Okay to take Immodium to minimize diarrhea. Call for temperature over 101.5 degrees Farenheit. No Smoking: If you smoke, Please STOP! Call for help. Follow-up with: Loyda Soria PA-C [Primary Care Provider] - Doroteo Shaw MD [Provider Admit Priv/Credential] -
[2016-07-21 16:59] VITALS: BP 124/75
--- NOTE | 2016-07-22 06:27 | DISCHARGE SUMMARY ---
DATE OF ADMISSION: 07/14/2016 DATE OF DISCHARGE: 07/21/2016 The patient was admitted to the hospital on 07/14/2016 for a nearly obstructing sigmoid colon mass wi th the favored diagnosis of diverticulitis. The operation was a left hemicolectomy with colocolostomy and partial left salpingectomy. The patient did very well postoperatively with the eventual passage of flatus and stool. She did have some diarrhea following this operation which was not unexpected. Th ere is no indication of infection. She is being discharged home on the sixth postoperative day, shahriar ating a general diet (gluten free), walking, voiding and evacuating well without difficulty, with pooja n well controlled. She is set up to followup with me in the office in 7-10 days. She is set up to fol lowup with Loyda Soria in the next 2 weeks. I have asked her to contact me with any surgical questio ns and/or concerns, and she stated that she would. Additionally, the only restrictions are to heavy l ifting greater than 15 pounds for a total of 6 weeks. Please note every other staple was removed by henrik arrieta in anticipation of her discharge. I discussed the fact that her bowels will normalize with time, th is may take up to 6-8 weeks for this to occur. I discussed that fiber should be a consistent feature in her diet. Imodium can be taken if the fiber is not working quite well enough. I have asked the johanna ferrell to contact me with any surgical questions and/or concerns and she stated that she would. Victor Hugoo lynda, she stated that she had a very nice stay here at [facility]. JOB #: [id number] EXT JOB #:[id number]
== END 2016-07-21 17:00 | disposition home or self-care (01) | DRG 330 ==
LOC: MS 10:27
PROVIDERS: ADMIT Surgery; ATTEND Surgery
PROC: 0UB60ZZ Excision of Left Fallopian Tube, Open Approach (ICD-10-PCS; 2016-07-14)
PROC: 0DBN0ZZ Excision of Sigmoid Colon, Open Approach (ICD-10-PCS; principal; 2016-07-14 11:30)
DX: K57.20 Diverticulitis of large intestine with perforation and abscess without bleeding (principal); N73.6 Female pelvic peritoneal adhesions (postinfective); E55.9 Vitamin D deficiency, unspecified; Z96.641 Presence of right artificial hip joint; Z98.51 Tubal ligation status
CPT/HCPCS: 36415; 80053; 85025; 86850; 86900; 86901; 88307

== ENCOUNTER 2016-08-06 12:02 | Outpatient (CLI) | payer MEDICARE ==
[2016-08-06 16:15] LABS: BASOPHILS # (AUTO) 0.1 10^3/uL (0.0-0.1); BASOPHILS % (AUTO) 1.2 %; EOSINOPHILS # (AUTO) 0.4 10^3/uL (0.0-0.7); HCT - HEMATOCRIT 33.5 % (37.0-47.0); HGB - HEMOGLOBIN 10.9 g/dL (12.0-16.0); LYMPHOCYTES # (AUTO) 2.6 10^3/uL (1.5-3.5); LYMPHOCYTES % (AUTO) 31.9 %; MEAN CORPUSCULAR HEMOGLOBIN 26.5 pg (27.0-31.0); MEAN CORPUSCULAR HGB CONC 32.7 g/dL (32.0-36.0); MEAN CORPUSCULAR VOLUME 81.2 fL (81.0-99.0); MEAN PLATELET VOLUME 7.5 fL (7.9-10.8); MONOCYTES # (AUTO) 0.6 10^3/uL (0.0-1.0); MONOCYTES % (AUTO) 7.2 %; NEUTROPHILS # (AUTO) 4.4 10^3/uL (1.5-6.6); NEUTROPHILS % (AUTO) 54.7 %; RED BLOOD COUNT 4.12 10^6/uL (4.20-5.40); RED CELL DISTRIBUTION WIDTH 17.5 % (12.0-15.0)
[2016-08-06 16:27] LABS: ALBUMIN/GLOBULIN RATIO 0.7 (1.0-2.2); BILIRUBIN,TOTAL 0.6 mg/dL (0.2-1.0); CALCIUM 9.3 mg/dL (8.5-10.3); CREATININE 0.8 mg/dL (0.4-1.0); POTASSIUM 4.2 mmol/L (3.5-5.0); TOTAL PROTEIN 7.8 g/dL (6.7-8.2)
[2016-08-06 16:48] LABS: HEMOGLOBIN A1C 0.43 g/dL
== END 2016-08-06 12:03 | disposition home or self-care (01) ==
LOC: LAB.R 12:02
PROVIDERS: ATTEND Physician Assistant Medical
DX: E11.9 Type 2 diabetes mellitus without complications (principal); Z79.899 Other long term (current) drug therapy
CPT/HCPCS: 80053; 83036; 85025

== ENCOUNTER 2016-09-22 06:13 | Inpatient (IN) | payer MEDICARE ==
[2016-09-22] MEDS ORDERED: LACTATED RINGERS 1,000 ML IV ONE (06:40)
[2016-09-22] MEDS ORDERED: ceFAZolin 2 GM/50 ML 50 ML IV ONE (07:05)
[2016-09-22] MEDS ORDERED: KETOROLAC 15 MG/ML VIAL IM ONE (08:22)
[2016-09-22] MEDS ORDERED: ROPIVACAINE 0.5% PF 20 ML AMPULE SUBQ ONE (08:22)
[2016-09-22] MEDS ORDERED: MORPHINE PF 5 MG/10 ML AMP SUBQ ONE (08:22)
[2016-09-22] MEDS ORDERED: BUPIVACAINE 0.5% PF 30 ML VIAL SUBQ ONE ×2 (08:23)
[2016-09-22] MEDS ORDERED: EPINEPHrine 1 MG/ML AMP SUBQ ONE (08:23)
[2016-09-22] MEDS ORDERED: ePHEDrine 50 MG/ML AMP IVP ONE (08:25)
[2016-09-22] MEDS ORDERED: ONDANSETRON 4 MG/2 ML VIAL IVP ONE (08:25)
[2016-09-22] MEDS ORDERED: ACETAMINOPHEN 1,000 MG/100 ML VIAL IV ONE (08:25)
[2016-09-22] MEDS ORDERED: PROPOFOL 1000 MG/100 ML IV ONE (08:25)
[2016-09-22] MEDS ORDERED: LIDOCAINE-MPF 2% 5 ML VIAL IM ONE (08:25)
[2016-09-22] MEDS ORDERED: MIDAZOLAM 2 MG/2 ML VIAL IVP ONE (08:25)
[2016-09-22] MEDS ORDERED: fentaNYL 100 MCG/2 ML VIAL IVP ONE (08:25)
[2016-09-22] MEDS ORDERED: PROPOFOL 200 MG/20 ML VIAL IVP ONE (08:25)
[2016-09-22] MEDS ORDERED: TRANEXAMIC ACID 1,000 MG/10 ML VIAL IV ONE (08:25)
[2016-09-22] MEDS ORDERED: BISACODYL 10 MG SUPP PR PRN (10:10)
[2016-09-22] MEDS ORDERED: PROCHLORPERAZINE 10 MG/2 ML VIAL IVP PRN (10:10)
[2016-09-22] MEDS ORDERED: ACETAMINOPHEN 325 MG TABLET PO PRN (10:10)
[2016-09-22] MEDS ORDERED: SENNA 8.6 MG TABLET PO PRN (10:10)
--- NOTE | 2016-09-22 10:10 | OPERATIVE REPORT ---
Operative Report - General Admit Date: 09/22/16 Procedure Date: 09/22/16 Planned Procedure: left Total Knee arthroplasty Pre-Op Diagnosis: left knee DJD Post Op Diagnosis: Same - Procedure Note Primary Surgeon: Tao Anesthesia Technique: Combo spinal/epidural Estimated Blood Loss (in cc): 20 Drain/Tube Type: Hemovac Complications: none
[2016-09-22] MEDS: ceFAZolin 2 GM/50 ML 50 ML IV SCH ×2 (10:36→17:56)
[2016-09-22] MEDS: SODIUM CHLORIDE FLUSH 0.9% 10 ML SYRINGE IVP SCH ×2 (10:49→19:10)
[2016-09-22] MEDS: oxyCOD/ACETAMIN 5 MG/325 MG TABLET PO PRN ×4 (11:05→23:22)
[2016-09-22] MEDS: MORPHINE 2 MG/ML SYRINGE IVP PRN ×3 (11:15→15:00)
--- NOTE | 2016-09-22 11:20 | OPERATIVE REPORT ---
DATE OF SURGERY: 09/22/2016 00:00:00 PREOPERATIVE DIAGNOSIS: Left knee degenerative arthritis. POSTOPERATIVE DIAGNOSIS: Left knee degenerative arthritis. NAME OF PROCEDURE: Cemented left total knee replacement arthroplasty. SURGEON: Aracelis Burger MD ANESTHESIA: Spinal by Carlito Deras. INDICATION FOR SURGERY: This is a patient who has been followed for an extended period of time with a dvancing osteoarhritis of the left knee. She has failed nonoperative treatment and has significant fu nctional limitations and chronic pain. She desires total knee arthroplasty. She has preoperatively be en evaluated by internal medicine and felt stable for surgery at this time. FINDINGS OF SURGERY: The patient's knee had a very large effusion of pale yellow synovial fluid. She had floating loose bodies of small amounts of bone with severely worn medical compartment, greater th an later compartment and patellofemoral wear was full thickness. The patient's bone density appeared quite poor with lead a stem tibial try being cemented in place. DESCRIPTION OF OPERATIVE PROCEDURE: The patient was taken to the operating room, was given a spinal a nesthetic. She has supine on the OR table. Tourniquet was placed on her thigh and her limb was steril robyn prepped and draped in standard fashion under tourniquet pressure of 300 mmHg. The patient's surge ry was undertaken after appropriate timeout. A curved medial incision was made followed by dissection down to the medial retinaculum and extended medial. A peripatellar incision was made and this expose d the anterior of the knee joint where the effusion was drained and exposure gained by retraction of the patella laterally. A rongeur was used to remove extensive osteophytes from the femur and patella. Retractors were then positioned to allow exposure of the femur where a central medullary hole was ma de and the distal cutting block applied. The distal cut was made in standard fashion after which the sizing block was applied and a size for a 6 femur. The appropriate block was then obtained, a 4:1 cut ting block, and applied to the femur and stabilized with pins and stabilized with pins and the cuts w ere made sequentially and uneventfully. Retractors were then positioned around the tibia for placemen t of the external tibial guide which was aligned properly for slope and varus valgus alignment and ap propriate depth resection. The tibial cut was made protecting soft tissues with retractors. The bone fragment removed. Posterior osteophytes and loose bodies were removed at this point, as well as resid ual meniscus. With retractors positioned, the tibia sized to a size D and appropriate drilling and br oaching applied for the stem component. The femoral component was applied with the tibial base tray i n place and appropriate tibial sizing blocks were applied up to 16 which was the proper stability ach ieved and gap stabilization with excellent range of motion. Trial components were left in place as th e patella was prepared by an initial size measurement followed by resection, drilling and re placement of the patella with a trial button of 8 mm thickness by 26 mm diameter. This was medialized somewhat and the osteophytes were moved around to accommodate its size. With trial components remove d, all surfaces were flushed and irrigated and dried as the components were brought in for implantat ion and once the bone was dried, the implantable components were placed starting with the tibial base tray followed by cementing the femoral component and then cementing the patellar component. The tria l tibial insert was again found to be appropriate at 16 mm thickness and this implant was selected an d inserted and locked into position. The stability gained in the knee was excellent and the range of motion good and the patella tracking satisfactory. The knee was flushed again and irrigated. Excess c ement had been removed and closure was undertaken with FiberWire closure of the capsule, Vicryl closu re of subcutaneous tissue and Monocryl closure of skin. Sterile dressings were applied with a Hemovac drain in place. The patient was taken to recovery room in stable condition. The estimated blood loss was 25 mL. Complications were none. Sponge and needle counts correct. Tourniquet time approximately 100 minutes at 300 mmHg. The implants used were Ruchi Person[employer] left size 6 femur, a size D tibial tra y with an extended stem, a 16 mm poly and the patella used was 26 mm x 8 mm thickness. JOB #: [id number] EXT JOB #:[id number]
--- NOTE | 2016-09-22 11:26 | XRAY Report ---
TWO-VIEW LEFT KNEE: 09/22/2016 CLINICAL INDICATION: Postop. FINDINGS: Frontal and lateral views of the left knee demonstrate a total knee replacement in place. Subcutaneous gas and suprapatellar drain are noted. There is no evidence of acute fracture or hardw are complication. IMPRESSION: EXPECTED POSTOPERATIVE APPEARANCE OF LEFT KNEE REPLACEMENT. JOB #: [id number] EXT JOB #:[id number]
[2016-09-22] MEDS: SODIUM CHLORIDE 0.45% 1,000 ML IV SCH ×2 (11:57→23:21)
[2016-09-22] MEDS: KETOROLAC 30 MG/ML VIAL IVP PRN ×2 (12:24→21:18)
[2016-09-22] MEDS: SODIUM CHLORIDE FLUSH 0.9% 10 ML SYRINGE IVP PRN (21:19)
[2016-09-23] MEDS: oxyCOD/ACETAMIN 5 MG/325 MG TABLET PO PRN ×5 (05:44→22:40)
[2016-09-23] MEDS: SODIUM CHLORIDE FLUSH 0.9% 10 ML SYRINGE IVP SCH ×3 (05:51→20:38)
[2016-09-23 06:27] LABS: HCT - HEMATOCRIT 30.5 % (37.0-47.0); HGB - HEMOGLOBIN 9.9 g/dL (12.0-16.0)
[2016-09-23 06:31] LABS: CALCIUM 8.4 mg/dL (8.5-10.3); CREATININE 0.7 mg/dL (0.4-1.0); POTASSIUM 4.2 mmol/L (3.5-5.0)
[2016-09-23] MEDS: KETOROLAC 30 MG/ML VIAL IVP PRN (06:35)
[2016-09-23] MEDS: SODIUM CHLORIDE 0.45% 1,000 ML IV SCH ×2 (07:23→09:19)
[2016-09-23] MEDS: ONDANSETRON 4 MG/2 ML VIAL IVP PRN (07:32)
--- NOTE | 2016-09-23 08:42 | PROVIDER PROGRESS NOTE ---
Subjective - General Admit Date: 09/22/16 Procedure Date: 09/22/16 Post Op Days: 1 Procedure Performed: Left Total Knee Arthroplasty - Review of Systems Wound/Incisions: positive: Dressing dry and intact General: positive: Other (knee pain) Gastrointestinal: positive: No symptoms Musculoskeletal: positive: No symptoms Objective - Patient Data Reviewed Vital Signs: Yes Vital Signs: Vital Signs x48h Temp Pulse Resp BP Pulse Ox 09/23/16 07:25 37.0 C 86 18 114/61 94 09/23/16 05:33 36.8 C 96 18 117/66 96 Weight: Weight 09/21/16 09/22/16 09/23/16 23:59 23:59 23:59 Weight (kg) 83 kg Intake & Output: Intake and Output Totals x24h 09/21/16 09/22/16 09/23/16 23:59 23:59 23:59 Intake Total 3605 1094 Output Total 1510 905 Balance 2095 189 - Lab Results Lab Results: 09/23/16 05:47 09/23/16 05:47 Other Lab Results: Lab Results x24hrs 09/23/16 09/23/16 Range/Units 05:47 05:47 Hgb 9.9 L (12.0-16.0) g/dL Hct 30.5 L (37.0-47.0) % Sodium 134 L (135-145) mmol/L Potassium 4.2 (3.5-5.0) mmol/L Chloride 99 L (101-111) mmol/L Carbon Dioxide 28 (21-32) mmol/L Anion Gap 7.0 (6-13) BUN 11 (6-20) mg/dL Creatinine 0.7 (0.4-1.0) mg/dL Estimated GFR (MDRD) 83 L (>89) Glucose 127 H (70-100) mg/dL Calcium 8.4 L (8.5-10.3) mg/dL - Imaging Results Radiology Imaging: positive: EMP read indepedently - Current Medications Current Medications: Current Medications Generic Name Dose Route Start Last Admin Trade Name Freq PRN Reason Stop Dose Admin Sodium Chloride 1,000 mls @ 100 mls/hr 09/22/16 11:00 09/23/16 07:23 Normal Saline 0.45% IV Not Given .Q10H ANGELIQUE Ketorolac Tromethamine 30 mg 09/22/16 12:10 09/23/16 06:35 Toradol Inj IVP 09/27/16 12:09 30 mg Q8HR PRN Administration PAIN Morphine Sulfate 2 mg 09/22/16 10:10 09/22/16 15:00 Morphine IVP 2 mg Q2HR PRN Administration Breakthrough Pain Ondansetron HCl 4 mg 09/22/16 10:10 09/23/16 07:32 Zofran Inj IVP 4 mg Q6HR PRN Administration Nausea / Vomiting Oxycodone/Acetaminophen 1 tab 09/22/16 10:10 09/23/16 05:44 Percocet 5 Mg/325 Mg PO 1 tab Q4HR PRN Administration PAIN Sodium Chloride 10 ml 09/22/16 10:10 09/22/16 21:19 Normal Saline Flush 0.9% IVP 10 ml PRN PRN Administration NEEDED PER PROVIDER ORDERS Sodium Chloride 10 ml 09/22/16 14:00 09/23/16 05:51 Normal Saline Flush 0.9% IVP Not Given Q8HR [facility] - Physical Exam Wound/Incisions: positive: Dressing dry and intact General Appearance: positive: No acute distress Cardiovascular: positive: Regular rate & rhythm Abdomen: positive: Non-tender Skin: positive: No rash, Warm, Dry Extremities: positive: Joint swelling Neurologic/Psychiatric: positive: Motor nml, Sensation nml, Mood/affect nml Impression/Plan - Problem List Problem List: POD #1 To begin PT today. Tolerating pain with present meds To begin Lovenox.
[2016-09-23] MEDS: MORPHINE 2 MG/ML SYRINGE IVP PRN ×2 (10:16→20:38)
[2016-09-23] MEDS: ENOXAPARIN 30 MG/0.3 ML SYRINGE SUBQ SCH (14:27)
[2016-09-24] MEDS: MORPHINE 2 MG/ML SYRINGE IVP PRN ×2 (01:18→10:23)
[2016-09-24] MEDS: SODIUM CHLORIDE FLUSH 0.9% 10 ML SYRINGE IVP PRN (01:28)
[2016-09-24] MEDS: oxyCOD/ACETAMIN 5 MG/325 MG TABLET PO PRN ×4 (02:32→22:32)
[2016-09-24] MEDS ORDERED: LACTULOSE 10 GM /15 ML UDC PO SCH (05:20)
[2016-09-24] MEDS: SODIUM CHLORIDE FLUSH 0.9% 10 ML SYRINGE IVP SCH ×4 (05:30→15:47)
[2016-09-24 06:42] LABS: HCT - HEMATOCRIT 28.7 % (37.0-47.0); HGB - HEMOGLOBIN 9.5 g/dL (12.0-16.0); MEAN CORPUSCULAR HEMOGLOBIN 27.8 pg (27.0-31.0); MEAN CORPUSCULAR HGB CONC 33.2 g/dL (32.0-36.0); MEAN CORPUSCULAR VOLUME 83.8 fL (81.0-99.0); MEAN PLATELET VOLUME 7.2 fL (7.9-10.8); RED BLOOD COUNT 3.43 10^6/uL (4.20-5.40); RED CELL DISTRIBUTION WIDTH 15.8 % (12.0-15.0)
--- NOTE | 2016-09-24 08:12 | PROVIDER PROGRESS NOTE ---
Subjective - General Admit Date: 09/22/16 Procedure Date: 09/22/16 Post Op Days: 2 Procedure Performed: Left Total Knee Arthroplasty - Review of Systems Wound/Incisions: positive: Dressing dry and intact General: positive: Other (knee pain) Gastrointestinal: positive: Constipation Musculoskeletal: positive: No symptoms Objective - Patient Data Reviewed Vital Signs: Yes Vital Signs: Vital Signs x48h Temp Pulse Resp BP Pulse Ox 09/24/16 05:54 36.7 C 89 18 130/61 94 Weight: Weight 09/22/16 09/23/16 09/24/16 23:59 23:59 23:59 Weight (kg) 83 kg Intake & Output: Intake and Output Totals x24h 09/22/16 09/23/16 09/24/16 23:59 23:59 23:59 Intake Total 3605 2567 200 Output Total 1510 905 Balance 2095 1662 200 - Lab Results Lab Results: 09/24/16 05:18 09/23/16 05:47 Other Lab Results: Lab Results x24hrs 09/24/16 Range/Units 05:18 WBC 8.0 (4.8-10.8) x10^3/uL RBC 3.43 L (4.20-5.40) 10^6/uL Hgb 9.5 L (12.0-16.0) g/dL Hct 28.7 L (37.0-47.0) % MCV 83.8 (81.0-99.0) fL MCH 27.8 (27.0-31.0) pg MCHC 33.2 (32.0-36.0) g/dL RDW 15.8 H (12.0-15.0) % Plt Count 215 (130-450) 10^3/uL MPV 7.2 L (7.9-10.8) fL - Current Medications Current Medications: Current Medications Generic Name Dose Route Start Last Admin Trade Name Freq PRN Reason Stop Dose Admin Enoxaparin Sodium 30 mg 09/23/16 13:00 09/23/16 14:27 Lovenox SUBQ 30 mg DAILY ANGELIQUE Administration Morphine Sulfate 2 mg 09/22/16 10:10 09/24/16 01:18 Morphine IVP 2 mg Q2HR PRN Administration Breakthrough Pain Ondansetron HCl 4 mg 09/22/16 10:10 09/23/16 07:32 Zofran Inj IVP 4 mg Q6HR PRN Administration Nausea / Vomiting Oxycodone/Acetaminophen 1 tab 09/22/16 10:10 09/24/16 06:33 Percocet 5 Mg/325 Mg PO 1 tab Q4HR PRN Administration PAIN Senna 17.2 mg 09/22/16 10:10 09/23/16 22:40 Senokot PO 17.2 mg Q12H PRN Administration Constipation Sodium Chloride 10 ml 09/22/16 10:10 09/24/16 01:28 Normal Saline Flush 0.9% IVP 10 ml PRN PRN Administration NEEDED PER PROVIDER ORDERS Sodium Chloride 10 ml 09/22/16 14:00 09/24/16 05:30 Normal Saline Flush 0.9% IVP 10 ml Q8HR ANGELIQUE Administration - Physical Exam Wound/Incisions: positive: Dressing dry and intact General Appearance: positive: No acute distress Abdomen: positive: No distention Extremities: positive: Joint swelling Neurologic/Psychiatric: positive: Motor nml, Sensation nml, Mood/affect nml Impression/Plan - Problem List Problem List: POD #2 Pt has minor constipation which will be addressed with meds. Advancing with physical therapy. Pt doesn't want Lovenox at discharge. Will arrange for d/c tomorrow.
--- NOTE | 2016-09-24 08:15 | Discharge Plan ---
Discharge Plan Disposition: Home, Self Care Condition: Good Prescriptions: oxyCODONE/ACET 5/325 [Percocet 5 mg/325 mg] 1 tab PO Q4HR PRN #30 tablet PRN Reason: Pain Aspirin [Aspirin EC] 325 mg PO BID #60 tablet.dr Navarrete [Senokot] 17.2 mg PO Q12H PRN #20 tablet PRN Reason: Constipation Diet: Regular Activity Restrictions: Wt Bearing as Tolerated Shower Restrictions: Yes (wound covered) Driving Restrictions: Yes (no drive X 4 weeks) Assistance Devices: Walker Weight Bearing: Full Weight Additional Instructions or Follow Up instructions: Wound to remain covered with Dressing Patient to keep area dry and clean Ambulation with walker Home use of Lovenox X 2 weeks. Office f/u next week. Follow-Up Care: Outpatient Rehab - PT No Smoking: If you smoke, Please STOP! Call for help. Follow-up with: Loyda Soria PA-C [Primary Care Provider] - Aracelis Burger MD [Provider Admit Priv/Credential] -
[2016-09-24] MEDS: ENOXAPARIN 30 MG/0.3 ML SYRINGE SUBQ SCH (09:37)
[2016-09-24] MEDS: ONDANSETRON 4 MG/2 ML VIAL IVP PRN (14:23)
[2016-09-25] MEDS: oxyCOD/ACETAMIN 5 MG/325 MG TABLET PO PRN ×2 (03:51→08:05)
[2016-09-25] MEDS: SODIUM CHLORIDE FLUSH 0.9% 10 ML SYRINGE IVP SCH (05:40)
[2016-09-25] MEDS: ENOXAPARIN 30 MG/0.3 ML SYRINGE SUBQ SCH (08:11)
[2016-09-25 08:37] VITALS: BP 137/70
--- NOTE | 2016-09-28 14:12 | DISCHARGE SUMMARY ---
DATE OF ADMISSION: 09/22/2016 DATE OF DISCHARGE: 09/25/2016 ADMISSION DIAGNOSIS: Left knee degenerative arthritis. OPERATIVE PROCEDURE: On 09/22/2016, a left total knee replacement arthroplasty. REASON FOR ADMISSION: The patient is a 71-year-old female with progressive severe osteoarthritis of h er left knee, who desires total knee arthroplasty. The patient has been followed in the office dona london and cared for with medical management that has increasingly proved to be ineffective. The patient h as functional limitations and constant pain, and desires surgery. HOSPITAL COURSE: The patient was admitted on 09/22/2016, and her HandP is dictated in the record and reflects her medical status on admission. The patient underwent surgery uneventfully, and returned to the hospital floor receiving standard postoperative care after total knee arthroplasty including IV antibiotics, DVT prophylaxis, early mobilization with the therapist, laboratory monitoring, and fluid hydration. In the postoperative period, the patient did remarkably well and had very little pain at the time of discharge. Her wound was healing well with no sign of infection. She was moving her knee comfortably from 0 to 80 degrees, and she had no symptoms or signs of DVT. At this point she was disc harged to home with planned followup in my office within 1 week. She was to keep a sterile dressing i n place over the knee until she was seen, and to keep it clean and dry. She was to use pain medicatio n as needed and also aspirin 325 mg b.i.d. JOB #: [id number] EXT JOB #:[id number]
== END 2016-09-25 10:57 | disposition home or self-care (01) | DRG 470 ==
LOC: MS2 06:13
PROVIDERS: ADMIT Orthopaedic Surgery; ATTEND Orthopaedic Surgery
PROC: 0SRD0J9 Replacement of Left Knee Joint with Synthetic Substitute, Cemented, Open Approach (ICD-10-PCS; principal; 2016-09-22 07:30)
DX: M17.12 Unilateral primary osteoarthritis, left knee (principal); Z96.641 Presence of right artificial hip joint
CPT/HCPCS: 36415; 80048; 85014; 85018; 86850; 86900; 86901; 86920

== ENCOUNTER 2017-02-03 08:00 | Outpatient (CLI) | payer MEDICARE ==
[2017-02-03 19:58] LABS: BASOPHILS # (AUTO) 0.1 10^3/uL (0.0-0.1); BASOPHILS % (AUTO) 1.2 %; EOSINOPHILS # (AUTO) 0.3 10^3/uL (0.0-0.7); EOSINOPHILS % (AUTO) 4.2 %; HCT - HEMATOCRIT 34.8 % (37.0-47.0); HGB - HEMOGLOBIN 10.9 g/dL (12.0-16.0); LYMPHOCYTES # (AUTO) 1.5 10^3/uL (1.5-3.5); LYMPHOCYTES % (AUTO) 22.2 %; MEAN CORPUSCULAR HEMOGLOBIN 24.9 pg (27.0-31.0); MEAN CORPUSCULAR HGB CONC 31.4 g/dL (32.0-36.0); MEAN CORPUSCULAR VOLUME 79.3 fL (81.0-99.0); MEAN PLATELET VOLUME 7.4 fL (7.9-10.8); MONOCYTES # (AUTO) 0.5 10^3/uL (0.0-1.0); MONOCYTES % (AUTO) 6.6 %; NEUTROPHILS # (AUTO) 4.6 10^3/uL (1.5-6.6); NEUTROPHILS % (AUTO) 65.8 %; NUCLEATED RED BLOOD CELLS AUTO 0.1 /100WBC; RED BLOOD COUNT 4.38 10^6/uL (4.20-5.40)
[2017-02-03 20:16] LABS: ALBUMIN/GLOBULIN RATIO 0.5 (1.0-2.2); BILIRUBIN,TOTAL 0.5 mg/dL (0.2-1.0); BUN - BLOOD UREA NITROGEN 13 mg/dL (6-20); CALCIUM 9.2 mg/dL (8.5-10.3); CARBON DIOXIDE - CO2 27 mmol/L (21-32); CHLORIDE 99 mmol/L (101-111); CHOL/HDL RATIO 3.3 (<4.4); CHOLESTEROL 177 mg/dL; CREATININE 0.7 mg/dL (0.4-1.0); GFR - MDRD 83 (>89); GLUCOSE 107 mg/dL (70-100); HDL CHOLESTEROL 53 mg/dL; LDL/HDL RATIO 2.1 (<4.4); POTASSIUM 3.8 mmol/L (3.5-5.0); SODIUM 136 mmol/L (135-145); TOTAL PROTEIN 8.9 g/dL (6.7-8.2); TRIGLYCERIDES 65 mg/dL; VLDL CHOLESTEROL 13 mg/dL
[2017-02-03 20:23] LABS: HEMOGLOBIN A1C 0.43 g/dL
== END 2017-02-03 08:01 | disposition home or self-care (01) ==
LOC: LAB.R 08:00
PROVIDERS: ATTEND Physician Assistant Medical
DX: Z79.899 Other long term (current) drug therapy (principal); E55.9 Vitamin D deficiency, unspecified; E11.9 Type 2 diabetes mellitus without complications; E78.2 Mixed hyperlipidemia; Z11.59 Encounter for screening for other viral diseases; M85.80 Other specified disorders of bone density and structure, unspecified site; L50.9 Urticaria, unspecified
CPT/HCPCS: 80053; 80061; 82306; 83036; 84443; 85025; 86803

== ENCOUNTER 2017-02-10 14:30 | Outpatient (CLI) | payer MEDICARE ==
[2017-02-10 13:00] LABS: IMMATURE RETIC FRACTION 0.48; RED BLOOD COUNT 4.49 10^6/uL (4.20-5.40)
[2017-02-10 13:31] LABS: FERRITIN 44.9 ng/mL (11.0-306.8)
== END 2017-02-10 14:31 | disposition home or self-care (01) ==
LOC: LAB.R 14:30
PROVIDERS: ATTEND Physician Assistant Medical
DX: D64.9 Anemia, unspecified (principal)
CPT/HCPCS: 82607; 82728; 83010; 85044; 86880

== ENCOUNTER 2017-03-11 10:58 | Outpatient (CLI) | payer MEDICARE ==
--- NOTE | 2017-03-12 16:58 | Mammography Report ---
DATE OF SERVICE: 03/11/2017 DIGITAL SCREENING MAMMOGRAM: 03/11/2017 CLINICAL INDICATION: A 72-year-old, for screening. COMPARISON: 03/2010, 07/2008. TECHNIQUE: Routine CC and MLO projections were obtained of the breasts. FINDINGS: The breasts demonstrate scattered fibroglandular densities bilaterally. Coarse and punctate, typically benign calcifications are present. Intramammary lymph nodes are stable. No suspicious masses, clustered microcalcifications, or regions of architectural distortion are identified. IMPRESSION: BENIGN FINDINGS. RECOMMENDATION: ROUTINE ANNUAL SCREENING UNLESS OTHERWISE CLINICALLY INDICATED. BIRADS CATEGORY 2-BENIGN FINDINGS. STANDARD QUALIFYING STATEMENTS: 1. This examination was reviewed with the aid of Computer-Aided Detection (CAD). 2. A negative or benign imaging report should not delay biopsy if clinically suspicious findings are present. Consider surgical consultation if warranted. More than 5% of cancers are not identified by imaging. 3. Dense breasts may obscure an underlying neoplasm. TD: 03/12/2017 17:57
== END 2017-03-11 10:59 | disposition home or self-care (01) ==
LOC: DI 10:58
PROVIDERS: ATTEND Physician Assistant Medical
DX: Z12.31 Encounter for screening mammogram for malignant neoplasm of breast (principal)
CPT/HCPCS: 77067

== ENCOUNTER 2017-06-17 10:22 | Outpatient (CLI) | payer MEDICARE ==
--- NOTE | 2017-06-17 16:13 | XRAY Report ---
TWO VIEW CHEST: 06/17/2017 CLINICAL INDICATION: Respiratory crackles. COMPARISON: 07/19/2008 FINDINGS: Frontal and lateral views of the chest demonstrate an enlarged cardiac silhouette. There is pulmonary vascular prominence and interstitial opacities, compatible with congestive failure. Trace effusions are seen posteriorly. No focal infiltrate or pneumothorax. IMPRESSION: CHANGES OF CONGESTIVE FAILURE. TD: 06/17/2017 16:11
== END 2017-06-17 10:23 | disposition home or self-care (01) ==
LOC: DI 10:22
PROVIDERS: ATTEND Physician Assistant Medical
DX: R09.89 Other specified symptoms and signs involving the circulatory and respiratory systems (principal)
CPT/HCPCS: 71046

== ENCOUNTER 2017-07-06 08:00 | Outpatient (CLI) | payer MEDICARE | END 2017-07-06 08:01 | disposition home or self-care (01) | LOC: LAB.R 08:00 | PROVIDERS: ATTEND Physician Assistant Medical | DX: R09.89 Other specified symptoms and signs involving the circulatory and respiratory systems (principal); R91.8 Other nonspecific abnormal finding of lung field | CPT/HCPCS: 83880 ==

== ENCOUNTER 2017-07-22 09:21 | Outpatient (CLI) | payer MEDICARE ==
--- NOTE | 2017-07-22 13:49 | XRAY Report ---
TWO VIEW CHEST: 07/22/2017 CLINICAL INDICATION: Abnormal chest x-ray, respiratory crackles. COMPARISON: 06/17/2017. FINDINGS: Frontal and lateral views of the chest demonstrate a mildly enlarged cardiac silhouette. Diffuse interstitial opacities appear stable. No effusion or pneumothorax is evident. IMPRESSION: STABLE DIFFUSE INTERSTITIAL OPACITIES. DIFFERENTIAL CONSIDERATIONS WOULD INCLUDE INTERSTITIAL EDEMA OR INTERSTITIAL LUNG DISEASE. TD: 07/22/2017 13:45
--- NOTE | 2017-07-22 13:50 | XRAY Report ---
THREE VIEW CERVICAL SPINE: 07/22/2017 CLINICAL INDICATION: Pain. FINDINGS: AP, lateral, odontoid views of the cervical spine demonstrate moderate degenerative disk and facet disease, with reversal of the normal cervical lordosis. There is no evidence of acute fracture or subluxation. The prevertebral soft tissues are unremarkable. IMPRESSION: MODERATE DEGENERATIVE CHANGES. TD: 07/22/2017 13:47
== END 2017-07-22 09:22 | disposition home or self-care (01) ==
LOC: DI 09:21
PROVIDERS: ATTEND Physician Assistant Medical
DX: R91.8 Other nonspecific abnormal finding of lung field (principal); M50.30 Other cervical disc degeneration, unspecified cervical region; M79.601 Pain in right arm
CPT/HCPCS: 71046; 72040

== ENCOUNTER 2017-08-16 12:28 | Outpatient (CLI) | END 2017-08-16 12:29 | disposition home or self-care (01) | CPT/HCPCS: 36415; 71260; 72141; 82565; 93306; Q9967 ==

== ENCOUNTER 2017-09-11 09:08 | Outpatient (CLI) | payer MEDICARE ==
--- NOTE | 2017-09-13 09:36 | Ultrasound Report ---
Procedure Date: 09/11/2017 Accession Number: [id number] / [id number] Procedure: US - Head or Neck Soft Tissue CPT Code: FULL RESULT: EXAM: THYROID ULTRASOUND EXAM DATE: 09/11/2017 09:51 AM. CLINICAL HISTORY: Multiple thyroid nodules. COMPARISON: CT chest and MRI cervical spine 08/16/2017. TECHNIQUE: Real time sonographic imaging of the thyroid was performed by the machine operator general. Multiple title insurance sales representative static images were saved for review. FINDINGS: THYROID GLAND: Right Lobe: 6.9 x 3.0 x 3.1 cm, volume 33.5 cc. Diffusely heterogeneous, hyperemic background parenchyma. Right Lobe Nodules: Dominant heterogeneous hypoechoic/isoechoic solid nodule measuring 5.2 x 2.4 x 2.5 cm. Left Lobe: 5.8 x 2.0 x 2.3 cm, volume 14.0 cc. Diffusely heterogeneous, hyperemic background parenchyma Left Lobe Nodules: None. Isthmus: 0.9 cm AP. Isthmic Nodules: None. LYMPH NODES: No adenopathy demonstrated in the central or lateral compartment. OTHER: None. IMPRESSION: Enlarged diffusely heterogeneous thyroid gland. A solitary discrete dominant nodule in the right thyroid lobe meets criteria for tissue sampling with FNA. Management recommendations are based on 2015 [employer] Management Guidelines for Adult Patients with Thyroid Nodules and Differentiated Thyroid Cancer. RADIA
== END 2017-09-11 09:09 | disposition home or self-care (01) ==
LOC: DI 09:08
PROVIDERS: ATTEND Physician Assistant Medical
DX: E04.2 Nontoxic multinodular goiter (principal)
CPT/HCPCS: 76536

== ENCOUNTER 2017-09-28 13:08 | Day surgery (SDC) | payer MEDICARE ==
--- NOTE | 2017-09-28 12:30 | ANESTHESIA ---
Pre-Anesthesia VS, & Labs - Is Patient ?: No - Lab Results Lab results reviewed: Yes <Doroteo Pickett - Last Filed: 09/28/17 12:38> - NPO >8 hours <Duyen Barragan - Last Filed: 09/28/17 14:43> - Diagnosis axillary lymphadenopathy (Doroteo Pickett) - Procedure right excisional lymph node biopsy (Doroteo Pickett) Vital Signs: Temp Pulse Resp BP Pulse Ox 37.2 C 16 130/68 94 09/28/17 13:22 09/28/17 13:22 09/28/17 13:22 09/28/17 13:22 Height 5 ft 5 in Weight (kg) 91.8 kg Body Mass Index 34.0 Home Medications and Allergies <Doroteo Pickett - Last Filed: 09/28/17 12:38> <Duyen Barragan - Last Filed: 09/28/17 14:43> Home Medications: Ambulatory Orders Medication Instructions Recorded Confirmed Cholecalciferol (Vitamin D3) 1,000 unit PO DAILY 08/31/16 09/28/17 [Vitamin D3] Ascorbic Acid [Vitamin C] 250 mg PO DAILY 09/22/16 09/28/17 Ferrous Sulfate 325 mg PO DAILY 09/22/16 09/28/17 Chey Root 1 tab PO DAILY 03/29/17 09/28/17 Multivitamin [Multivitamins] 1 cap PO DAILY 03/29/17 09/28/17 Turmeric/Turmeric Root Extract 1 cap PO DAILY 03/29/17 09/28/17 [Turmeric 500 mg Capsule] Naproxen Sodium [Aleve] 350 mg PO DAILY 08/23/17 09/28/17 Allergies/Adverse Reactions: Allergies Allergy/AdvReac Type Severity Reaction Status Date / Time gluten AdvReac Nausea Verified 09/27/17 13:11 dust AdvReac Unknown Uncoded 09/27/17 13:11 mildew AdvReac Unknown Uncoded 09/27/17 13:11 pollen AdvReac Unknown Uncoded 09/27/17 13:11 Anes History & Medical History - Medical History Cardiovascular: reports: Arrhythmia, Other Pulmonary: reports: None, Other Gastrointestinal: reports: Chronic diarrhea, Diverticulitis, Other Urinary: reports: None Musculoskeletal: reports: Osteoarthritis Endocrine/Autoimmune: reports: None Skin: reports: None Smoking Status: Never smoker - Surgical History General: Bowel surgery, Colonoscopy, EGD Eyes Ears Nose Throat (EENT): Tonsil/Adenoidectomy Gynecologic: Tubal ligation Orthopedic: Hip replacement <Doroteo Pickett - Last Filed: 09/28/17 12:38> - Anesthetic History Anesthesia Complications: reports: No previous complications - Airway/Dental Dental: WNL Mouth Opening: Greater than 4 Fingerbreadths Neck Mobility: Reduced Mallampati classification: II Thyromental Distance: greater than 6 cm <Duyen Barragan - Last Filed: 09/28/17 14:43> Exam General: Alert Respiratory: Lungs clear Cardiovascular: Regular rate Mental/Cognitive Status: Alert/Oriented X3 Cognitive Status: Within normal limits <Duyen Barragan - Last Filed: 09/28/17 14:43> Plan Anesthesia Type: General Consent for Procedure(s) Verified and Reviewed: Yes Code Status: Attempt Resuscitation ASA classification: 2-Mild systemic disease Is this case an emergency?: No <Duyen Barragan Last Filed: 09/28/17 14:43>
[~2017-09-28 13:08] MED LIST: ceFAZolin 2 GM/50 ML 2 GM/50 ML BAG IV ONE
[2017-09-28] MEDS ORDERED: LACTATED RINGERS 1,000 ML IV ONE (13:41)
[2017-09-28] MEDS ORDERED: LIDOCAINE-MPF 2% 5 ML VIAL IM ONE (15:11)
[2017-09-28] MEDS ORDERED: ACETAMINOPHEN 1,000 MG/100 ML 100 ML IV ONE (15:11)
[2017-09-28] MEDS ORDERED: DEXAMETHASONE 4 MG/ML VIAL IVP ONE (15:11)
[2017-09-28] MEDS ORDERED: fentaNYL 100 MCG/2 ML VIAL IVP ONE (15:11)
[2017-09-28] MEDS ORDERED: PROPOFOL 200 MG/20 ML VIAL IVP ONE (15:11)
[2017-09-28] MEDS ORDERED: MIDAZOLAM 2 MG/2 ML VIAL IVP ONE (15:11)
[2017-09-28] MEDS ORDERED: BUPIVACAINE 0.5%-EPI 1:200000 PF 30 ML VIAL SUBQ ONE (15:27)
--- NOTE | 2017-09-28 15:36 | OPERATIVE REPORT ---
Operative Report - General Procedure Date: 09/28/17 Planned Procedure: RIGHT axillary lymph node excisional biopsy Pre-Op Diagnosis: RIGHT axillary lymphadenopathy Procedure Performed: RIGHT axillary lymph node excisional biopsy Post Op Diagnosis: RIGHT axillary lymphadenopathy - Procedure Note Primary Surgeon: Doroteo Shaw MD Anesthesia Provider: Duyen Barragan CRNA Anesthesia Technique: General LMA, Local (30 mL 1/2% marcaine) IV Fluids (mL): 400 Estimated Blood Loss (mL): 10 Complications: None. - Other Other Information/Narrative: OPERATIVE DESCRIPTION/REPORT: After verbal and written informed consent was obtained detailing the risks of infection, bleeding requiring transfusion with its risks, nerve injury, and , and after I met with the patient confirming the surgery and the site of the surgery and after initialing the site of the surgery with a surgical marker , the patient was brought to the operative suite and placed supine on the operating table. Great care was taken to avoid pressure points to prevent pressure necrosis or nerve injury. Monitoring devices were applied along with TEDs and pneumatic compressive stockings (to prevent DVT). The patient received preoperative antibiotics for surgical prophylaxis. Duyen Barragan CRNA sedated and anesthetized the patient for the entire procedure. The patient was prepped and draped in the usual sterile manner. With the patient draped my initials were clearly visible. A "time in" then confirmed that the patient was identified with 3 identifiers (name, birthdate and medical record number), the history and physical was in the chart, the signed consent confirming the procedure was in the chart, the patient was in the correct position, the aforementioned prophylactic measures were in place or given, we had the correct personel and equipment to complete the procedure and that anesthesia, surgery and nursing were given an opportunity to express any concerns. With the agreement of everyone in the room, we proceeded with the operation. A transverse incision was made at the inferior axillary hairline. Dissection using a combination of Bovie electrocautery and Metzenbaum scissors was used to dissect down to the fascia and open the fascia overlying axilla proper. The enlarged lymph nodes in question were in the mid-axilla. These were excised using a combination of blunt dissection as well as Bovie electrocautery. Hemostasis was obtained using Bovie electrocautery. A quite large lymph node specimen was removed measuring approximately 4 cm x 2 cm. This corresponded to the lymph node seen on CT scan. Copious saline lavage was used to remove any debris, and hemostasis was obtained with Bovie electrocautery. The subcutaneous tissue was approximated using an interrupted 2-0 Vicryl and the skin incision was approximated with 4-0 Monocryl in a running subcuticular manner. The incision was injected with 30 cc % marcaine. The prep was washed off and Dermabond was applied. Dressings were applied. At this point a time out was performed that confirmed that all the counts were correct, the procedure that was performed, the blood loss, the urine output, the IV fluids administered, and the patients condition. Having tolerated the procedure well , the patient was subsequently extubated and taken to recovery room in good and stable condition. [employer] disclaimer: This document was created in part using voice recognition technology. Because of the inherent limitations of the system ([employer]'s [employer] Dictate user manual states that the licensee understands that speech recognition is a statistical process and that recognition errors are inherent in the process), occasional same sounding word substitutions and grammatical errors do occur and persist despite proofreading. Please read this document for context.
[2017-09-28 16:21] VITALS: BP 128/70
== END 2017-09-28 13:09 | disposition home or self-care (01) ==
LOC: SDS 13:08
PROVIDERS: ATTEND Surgery
PROC: 07B50ZX Excision of Right Axillary Lymphatic, Open Approach, Diagnostic (ICD-10-PCS; principal; 2017-09-28 14:15)
DX: R59.0 Localized enlarged lymph nodes (principal); D64.9 Anemia, unspecified
CPT/HCPCS: 38500; J0131; J0690; J7120; 88307; 88341; 88342

== ENCOUNTER 2017-12-07 09:57 | Outpatient (CLI) | payer MEDICARE ==
[2017-12-07] MEDS ORDERED: BUFFERED LIDOCAINE 10 ML SYRINGE IU ONE (12:02)
--- NOTE | 2017-12-07 13:24 | Ultrasound Report ---
Reason: THYROID NODULE, RIGHT Procedure Date: 12/07/2017 Accession Number: [id number] / [id number] Procedure: US - Fine Needle Aspiration CPT Code: FULL RESULT: EXAM: Fine Needle Aspiration DATE: 12/07/2017 12:04 PM CLINICAL INDICATION: THYROID NODULE, RIGHT COMPARISON: Thyroid ultrasound 09/11/2017. PROCEDURE: The procedure, with its potential risks and complications, was discussed with the patient, including the option of not performing the procedure. Verbal and written consent was obtained. A time-out was observed to confirm the correct patient, procedure, and site. With the patient in supine position, the target solid 5.2 x 2.4 x 2.5 cm right thyroid nodule was identified by ultrasound. A skin site was marked, and the skin was prepped and draped in usual sterile fashion. Infiltration of 10 mL of 1% lidocaine into the subcutaneous tissues was performed for local anesthesia. Under ultrasound guidance, 5 passes with a 22 gauge needle were made into the nodule. FNA samples were placed in CytoLyt. The patient tolerated the procedure well. Ultrasound immediately postprocedure showed no adjacent hematoma. Patient experienced no immediate postprocedure complications. IMPRESSION: Ultrasound-guided fine needle aspiration of right thyroid nodule.
== END 2017-12-07 09:58 | disposition home or self-care (01) ==
LOC: DI 09:57
PROVIDERS: ATTEND Physician Assistant Medical
DX: E04.1 Nontoxic single thyroid nodule (principal)
CPT/HCPCS: 10022

== ENCOUNTER 2018-04-26 13:43 | Outpatient (CLI) | payer MEDICARE | END 2018-04-26 13:44 | disposition home or self-care (01) | LOC: LAB 13:43 | PROVIDERS: ATTEND Internal Medicine Rheumatology | DX: Z53.9 Procedure and treatment not carried out, unspecified reason (principal) ==

== ENCOUNTER 2018-05-03 10:47 | Outpatient (CLI) | payer MEDICARE ==
--- NOTE | 2018-05-03 13:06 | CT Report ---
Reason: INTERSTITAL PULMONARY DISEASE Procedure Date: 05/03/2018 Accession Number: [id number] / [id number] Procedure: CT - CHEST WO CPT Code: FULL RESULT: EXAM: CT CHEST EXAM DATE: 05/03/2018 11:47 AM. CLINICAL HISTORY: Interstitial pulmonary disease. COMPARISONS: CHEST W/ 08/16/2017 2:41 PM. TECHNIQUE: Routine helical CT imaging was performed through the chest. IV contrast: None. Reconstructions: Coronal and sagittal. In accordance with CT protocol optimization, one or more of the following dose reduction techniques were utilized for this exam: automated exposure control, adjustment of mA and/or KV based on patient size, or use of iterative reconstructive technique. FINDINGS: Lungs/Pleura: There is a symmetric pattern of pulmonary parenchymal interstitial fibrosis with peripheral and slight basilar predominance. There is coarse thickening of intralobular septations. No significant nodularity or groundglass opacification. Minimal associated basilar bronchiectasis. Tiny amount of early honeycomb-type fibrosis in the inferior costophrenic sulci bilaterally. Overall, process appears stable to slightly increased compared to the prior exam of 08/16/2017. No focal pulmonary nodules appreciated. No effusion or extraventilatory air. No significant pleural thickening. Mediastinum: Heart size is normal. There are borderline prominent symmetric hilar lymph nodes slightly less evident than prior. Mild prominence of the subcarinal nodes otherwise no focal mediastinal adenopathy. Bones: Unremarkable. Visualized Abdomen: Unremarkable. Other: Moderately symmetric axillary adenopathy is noted, similar to the prior exam. There is bilateral enlargement of the thyroid lobes, right greater than left. On noncontrast imaging, there is an appearance of bilateral low density nodules at least 4 measuring greater than a centimeter and largest approximately 2 cm in the right thyroid lobe. IMPRESSION: 1. Stable to slight interval progression of interstitial pulmonary fibrosis with slight peripheral and basilar predominance as described. 2. Stable appearance of symmetric axillary adenopathy. Stable appearance to slight diminishment in appearance of borderline hilar adenopathy. 3. Heterogeneous thyroid enlargement with suggestion of low-density thyroid nodules as described. Recommend follow-up with dedicated thyroid ultrasound. [facility]
== END 2018-05-03 10:48 | disposition home or self-care (01) ==
LOC: DI 10:47
PROVIDERS: ATTEND Internal Medicine Rheumatology
DX: J84.10 Pulmonary fibrosis, unspecified (principal); R59.0 Localized enlarged lymph nodes; E04.9 Nontoxic goiter, unspecified
CPT/HCPCS: 71250

== ENCOUNTER 2018-08-08 11:08 | Inpatient (IN) | payer MEDICARE ==
--- NOTE | 2018-08-08 11:56 | ED Physician Documentation ---
PD HPI DYSPNEA - Stated complaint Stated Complaint: SOA - Chief complaint Chief Complaint: Cardiac - History obtained from History obtained from: Patient - History of Present Illness Timing - onset: How many days ago (5-6) Timing - onset during: Light activity Timing - duration: Days Timing - details: Gradual onset, Still present (worsened over few days, associated with leg edema and some cough of clear sputum.) Inciting event(s): No: Out of meds, Immobilization/travel Improved by: Rest, Sitting up Worsened by: Exertion, Laying flat Associated symptoms: Cough, Chest pain / discomfort (tightness), Bilateral edema. No: Fever, Wheezing, Palpitations Similar symptoms before: Has not had sx before Recently seen: Not recently seen Review of Systems Constitutional: denies: Fever, Chills, Myalgias Nose: denies: Rhinorrhea / runny nose, Congestion Throat: denies: Sore throat Respiratory: denies: Cough GI: denies: Abdominal Pain, Nausea, Vomiting, Diarrhea, Bloody / black stool : denies: Dysuria, Frequency Skin: denies: Abrasion (s), Laceration (s) Musculoskeletal: reports: Back pain. denies: Neck pain Neurologic: reports: Generalized weakness. denies: Focal weakness, Numbness Immunocompromised: denies: Immunocompromised PD PAST MEDICAL HISTORY - Past Medical History Cardiovascular: Arrhythmia, Other Respiratory: None, Other Endocrine/Autoimmune: None GI: Chronic diarrhea, Diverticulitis, Other : None HEENT: None Psych: None Musculoskeletal: Osteoarthritis Derm: None - Past Surgical History General: Bowel surgery, Colonoscopy, EGD Ortho: Hip replacement /FUR MATCHER: Tubal ligation HEENT: Tonsil/Adenoidectomy - Present Medications Home Medications: Ambulatory Orders Medication Instructions Recorded Confirmed Cholecalciferol (Vitamin D3) 5,000 unit PO 08/31/16 09/28/17 [Vitamin D3] Multivitamin [Multivitamins] 1 cap PO DAILY 03/29/17 09/28/17 Mycophenolate Mofetil 1,000 mg PO BID 08/08/18 08/08/18 Sulfamethox/Trimeth 800/160 1 tab PO MOWEFR 08/08/18 08/08/18 [Bactrim Ds] predniSONE [Prednisone] 20 mg PO DAILY 08/08/18 08/08/18 - Allergies Allergies/Adverse Reactions: Allergies Allergy/AdvReac Type Severity Reaction Status Date / Time gluten AdvReac Nausea Verified 08/08/18 11:15 house dust AdvReac Unknown Verified 08/08/18 16:50 mold AdvReac Unknown Verified 08/08/18 16:50 pollen extracts AdvReac Unknown Verified 08/08/18 16:50 - Social History Does the pt smoke?: No Smoking Status: Never smoker PD ED PE NORMAL - Vitals Vital signs reviewed: Yes - General General: Alert and oriented X 3, Well developed/nourished - Neck Neck: Supple, no meningeal sign, No adenopathy - Cardiac Cardiac: No: RRR - Respiratory Respiratory: No: Clear bilaterally (fine crackles in the base, about 1/3 base) - Abdomen Abdomen: Soft, Non tender - Female Female : Deferred - Rectal Rectal: Deferred - Back Back: No CVA TTP - Derm Derm: Normal color, Warm and dry - Extremities Extremities: Normal ROM s pain, No calf tenderness / cord, Other (1+ edema in both lower legs. No calf tenderness. ) - Neuro Neuro: Alert and oriented X 3, No motor deficit, Normal speech Results - Vitals Vitals: Vital Signs - 24 hr 08/08/18 08/08/18 08/08/18 11:13 11:43 12:15 Temperature 36.8 C 36.8 C Heart Rate 79 165 H 161 H Respiratory 20 24 18 Rate Blood Pressure 145/84 H 153/106 H 154/102 H O2 Saturation 92 93 93 08/08/18 08/08/18 08/08/18 12:34 12:42 13:10 Temperature Heart Rate 105 H 124 H 115 H Respiratory 29 H 18 26 H Rate Blood Pressure 130/86 H 144/90 H 132/89 H O2 Saturation 90 L 94 93 08/08/18 08/08/18 08/08/18 13:20 13:46 13:58 Temperature Heart Rate 111 H 109 H 92 Respiratory 22 26 H 29 H Rate Blood Pressure 145/117 H 146/129 H 126/82 H O2 Saturation 93 93 95 08/08/18 14:02 Temperature Heart Rate 102 H Respiratory 25 H Rate Blood Pressure 113/102 H O2 Saturation 96 Oxygen O2 Source Nasal cannula - EKG (time done) 11:22 Rate: Rate (enter#) (167) Rhythm: Atrial fibrillation [place]: Normal Intervals: Other (PVCs) QRS: Normal Ischemia: Normal ST segments. No: ST elevation c/w ischemia, ST depression - Labs Labs: Laboratory Tests 08/08/18 08/08/18 08/08/18 11:32 11:32 11:32 WBC 11.9 H RBC 4.12 L Hgb 12.7 Hct 39.2 MCV 95.2 MCH 30.8 MCHC 32.3 RDW 20.3 H Plt Count 136 MPV 8.6 Neut # (Auto) Not Reportable Lymph # (Auto) Not Reportable [place] # (Auto) Not Reportable Eos # (Auto) Not Reportable Baso # (Auto) Not Reportable Absolute Nucleated RBC Not Reportable Total Counted 100 Band Neuts % (Manual) 5 Abnorm Lymph % (Manual) 0 Nucleated RBC % Not Reportable Neutrophils # (Manual) 10.0 H Lymphocytes # (Manual) 1.7 Monocytes # (Manual) 0.2 Eosinophils # (Manual) 0.0 Basophils # (Manual) 0.0 Nucleated RBCs 1 Differential Comment MANUAL DIFFERENTIAL WBC Morphology NORMAL APPEARANCE Platelet Estimate NORMAL (130-450,000) Platelet Morphology NORMAL APPEARANCE RBC Morph Micro Appear 1+ MACROCYTOSIS Sodium 131 L Potassium 4.2 Chloride 98 L Carbon Dioxide 17 L Anion Gap 16.0 H BUN 19 Creatinine 1.0 Estimated GFR (MDRD) 55 L Glucose 466 H Calcium 8.7 Magnesium Total Bilirubin 1.5 H AST 78 H ALT 162 H Alkaline Phosphatase 189 H Troponin I < 0.04 B-Natriuretic Peptide Total Protein 6.6 L Albumin 3.4 Globulin 3.2 Albumin/Globulin Ratio 1.1 Lipase 28 TSH Urine Color Urine Clarity Urine pH Ur Specific [place] Urine Protein Urine Glucose (UA) Urine Ketones Urine Occult Blood Urine Nitrite Urine Bilirubin Urine Urobilinogen Ur Leukocyte Esterase Urine RBC Urine WBC Ur Squamous Epith Cells Urine Bacteria Urine Culture Comments Serum Ketones 08/08/18 08/08/18 08/08/18 11:33 11:52 11:52 WBC RBC Hgb Hct MCV MCH MCHC RDW Plt Count MPV Neut # (Auto) Lymph # (Auto) [place] # (Auto) Eos # (Auto) Baso # (Auto) Absolute Nucleated RBC Total Counted Band Neuts % (Manual) Abnorm Lymph % (Manual) Nucleated RBC % Neutrophils # (Manual) Lymphocytes # (Manual) Monocytes # (Manual) Eosinophils # (Manual) Basophils # (Manual) Nucleated RBCs Differential Comment WBC Morphology Platelet Estimate Platelet Morphology RBC Morph Micro Appear Sodium Potassium Chloride Carbon Dioxide Anion Gap BUN Creatinine Estimated GFR (MDRD) Glucose Calcium Magnesium 2.1 Total Bilirubin AST ALT Alkaline Phosphatase Troponin I B-Natriuretic Peptide 515 H Total Protein Albumin Globulin Albumin/Globulin Ratio Lipase TSH Urine Color Urine Clarity Urine pH Ur Specific [place] Urine Protein Urine Glucose (UA) Urine Ketones Urine Occult Blood Urine Nitrite Urine Bilirubin Urine Urobilinogen Ur Leukocyte Esterase Urine RBC Urine WBC Ur Squamous Epith Cells Urine Bacteria Urine Culture Comments Serum Ketones NEGATIVE 08/08/18 08/08/18 11:52 14:00 WBC RBC Hgb Hct MCV MCH MCHC RDW Plt Count MPV Neut # (Auto) Lymph # (Auto) [place] # (Auto) Eos # (Auto) Baso # (Auto) Absolute Nucleated RBC Total Counted Band Neuts % (Manual) Abnorm Lymph % (Manual) Nucleated RBC % Neutrophils # (Manual) Lymphocytes # (Manual) Monocytes # (Manual) Eosinophils # (Manual) Basophils # (Manual) Nucleated RBCs Differential Comment WBC Morphology Platelet Estimate Platelet Morphology RBC Morph Micro Appear Sodium Potassium Chloride Carbon Dioxide Anion Gap BUN Creatinine Estimated GFR (MDRD) Glucose Calcium Magnesium Total Bilirubin AST ALT Alkaline Phosphatase Troponin I B-Natriuretic Peptide Total Protein Albumin Globulin Albumin/Globulin Ratio Lipase TSH 2.85 Urine Color YELLOW Urine Clarity CLEAR Urine pH 5.5 Ur Specific [place] <=1.005 Urine Protein NEGATIVE Urine Glucose (UA) >=1000 H Urine Ketones NEGATIVE Urine Occult Blood TRACE-LYSE Urine Nitrite NEGATIVE Urine Bilirubin NEGATIVE Urine Urobilinogen 0.2 (NORMAL) Ur Leukocyte Esterase NEGATIVE Urine RBC 0-5 Urine WBC 0-3 Ur Squamous Epith Cells FEW Squamous Urine Bacteria None Seen Urine Culture Comments NOT INDICATED Serum Ketones - Rads (name of study) chest xray Radiology: Prelim report reviewed (CHF), EMP read contemporaneously, See rad report PD MEDICAL DECISION MAKING - ED course Complexity details: reviewed results, re-evaluated patient (imrpoved heart rate with IV diltiazem, with rate to 100-115. Breathing easier. ), considered differential (atrial fib with RVR of likely week or more duration, with subsequent CHF. ), d/w patient Departure - Departure Disposition: [facility] DC/Xfer Clinical Impression: New onset atrial fibrillation Dyspnea Qualifiers: Dyspnea type: dyspnea on exertion Qualified Code(s): R06.09 - Other forms of dyspnea CHF (congestive heart failure) Qualifiers: Heart failure type: unspecified Heart failure chronicity: acute Qualified Code(s): I50.9 - Heart failure, unspecified Condition: Stable Record reviewed to determine appropriate education?: Yes Discharge Date/Time: 08/08/18 15:04
[2018-08-08 12:04] LABS: BASOPHILS % (AUTO) 0.2 %; EOSINOPHILS % (AUTO) 0.1 %; HGB - HEMOGLOBIN 12.7 g/dL (12.0-16.0); LYMPHOCYTES % (AUTO) 6.3 %; MEAN CORPUSCULAR HEMOGLOBIN 30.8 pg (27.0-31.0); MEAN CORPUSCULAR HGB CONC 32.3 g/dL (32.0-36.0); MEAN CORPUSCULAR VOLUME 95.2 fL (81.0-99.0); MEAN PLATELET VOLUME 8.6 fL (7.9-10.8); NEUTROPHILS % (AUTO) 89.4 %; PLT - PLATELET COUNT 136 10^3/uL (130-450); RED BLOOD COUNT 4.12 10^6/uL (4.20-5.40); RED CELL DISTRIBUTION WIDTH 20.3 % (12.0-15.0); WHITE BLOOD COUNT 11.9 x10^3/uL (4.8-10.8)
[2018-08-08] MEDS ORDERED: diltiaZEM INJ 5 MG/ML VIAL IVP STA ×3 (12:12→13:33)
[2018-08-08] MEDS ORDERED: FUROSEMIDE 20 MG/2 ML VIAL IVP STA (12:12)
[2018-08-08 12:13] LABS: ALBUMIN 3.4 g/dL (3.2-5.5); ALBUMIN/GLOBULIN RATIO 1.1 (1.0-2.2); BILIRUBIN,TOTAL 1.5 mg/dL (0.2-1.0); CALCIUM 8.7 mg/dL (8.5-10.3); TOTAL PROTEIN 6.6 g/dL (6.7-8.2)
[2018-08-08 12:17] LABS: ABNORMAL LYMPHS % (MANUAL) 0 %
[2018-08-08 12:33] LABS: BAND NEUTROPHILS % (MANUAL) 5 %; LYMPHOCYTES # (MANUAL) 1.7 10^3/uL (1.5-3.5); MONOCYTES # (MANUAL) 0.2 10^3/uL (0.0-1.0); NEUTROPHILS % (MANUAL) 79 %
[2018-08-08 12:36] LABS: LYMPHOCYTES % (MANUAL) 14 %; PLATELET ESTIMATE, MANUAL NORMAL (130-450,000) (NORMAL); PLATELET MORPHOLOGY NORMAL APPEARANCE (NORMAL)
[2018-08-08 12:37] LABS: DIFFERENTIAL COMMENT MANUAL DIFFERENTIAL
--- NOTE | 2018-08-08 13:00 | XRAY Report ---
Reason: edema, SOA Procedure Date: 08/08/2018 Accession Number: [id number] / [id number] Procedure: XR - Chest 1 View X-Ray CPT Code: 00139 FULL RESULT: EXAM: CHEST RADIOGRAPHY EXAM DATE: 08/08/2018 12:37 PM. CLINICAL HISTORY: Edema, swelling of ankles. COMPARISON: CHEST 2 VIEW 07/22/2017 9:27 AM CHEST W/O 05/03/2018 11:43 AM. TECHNIQUE: 1 view. FINDINGS: Lungs/Pleura: Interval increase in previously seen increased interstitial markings and development of what is likely small bilateral pleural effusions. No lobar consolidation is detected. There is no sizable pneumothorax. Mediastinum: Apparent interval enlargement of the cardiomediastinal silhouette is possibly at least partially due to AP portable technique. Additionally, there is widening of the vascular pedicle in the setting of new bilateral pleural effusions and pulmonary edema. Other: None. IMPRESSION: New small pleural effusions. Persistent interstitial thickening. Enlargement of the cardiomediastinal silhouette, likely at least partially due to widening of the vascular pedicle. RADIA
[2018-08-08] MEDS ORDERED: ENOXAPARIN 80 MG/0.8 ML SYRINGE SUBQ STA (13:27)
[2018-08-08 14:12] LABS: BILIRUBIN,URINE NEGATIVE (NEGATIVE); GLUCOSE, URINE (UA) >=1000 mg/dL (NEGATIVE); KETONES,URINE (UA) NEGATIVE (NEGATIVE); LEUKOCYTE ESTERASE, URINE NEGATIVE (NEGATIVE); NITRITE,URINE NEGATIVE (NEGATIVE); OCCULT BLOOD,URINE TRACE-LYSE (NEGATIVE); PH,URINE 5.5 PH (5.0-7.5); PROTEIN,URINE NEGATIVE (NEGATIVE); UROBILINOGEN,URINE 0.2 (NORMAL) E.U./dL (NORMAL)
[2018-08-08] MEDS ORDERED: ACETAMINOPHEN 325 MG TABLET PO PRN (14:19)
[2018-08-08] MEDS ORDERED: ONDANSETRON 4 MG/2 ML VIAL IVP PRN (14:19)
[2018-08-08 14:20] LABS: BACTERIA,URINE None Seen /HPF (None Seen); CLARITY,URINE CLEAR (CLEAR); RBC,URINE 0-5 /HPF (0-5); SQUAMOUS EPITHELIAL CELL,UR FEW Squamous (<= Few)
[2018-08-08] MEDS ORDERED: INSULIN ASPART 300 UNIT/3 ML PEN SUBQ STA (14:29)
--- NOTE | 2018-08-08 14:33 | HISTORY & PHYSICAL EXAMINATION ---
Chief Complaint - Chief Complaint Chief Complaint: shortness of breath History of Present Illness - Admitted From Admitted From:: ER - History Obtained From History obtained from: pt - History of Present Illness HPI Comment/Other: Ms. Jacques is 73-yrs old female with a PMH significant for rheumatoid arthritis, obese, status post of multiple surgeries including knee replacement, hemicolectomy due to severe diverticulitis and sigmoid mass, who present ER complain of shortness of breath. Pt report she felt increase of shortness of breath for quite long time, special recently several days, she feel shortness of breath even when she went to bathroom. She also report she had chronic cough, some time with clear sputum. She report she also felt increase of her lower ext remity edema, "otherwise, I am healthy." Today pt called her PCP because of increase of shortness of breath. Her PCP asked her to come to ER. CXR reveals new small pleural effusion, and cardiomegaly. Lab test in ER pt has elevated BNP over 500, Glucose is 466, slight increase WBC 11.9, Na 131, increase iron gap 16, no serum ketone, elevated liver enzyme. Pt's EKG reveals pt has afib with RVR at initial HR 165. Pt denies she has hx of diabetes, heart disease. Pt denies chest pain, palpitation, dizziness, fever, chill, abdominal pain, nausea, vomiting, headache, vision change, dysuria, hematuria. pt was admitted for above medical problems. History - Past Medical History Cardiovascular: reports: Arrhythmia, Other Respiratory: reports: None, Other Endocrine/Autoimmune: reports: None GI: reports: Chronic diarrhea, Diverticulitis, Other : reports: None HEENT: reports: None Psych: reports: None Musculoskeletal: reports: Osteoarthritis Derm: reports: None MRSA Hx?: No - Past Surgical History General: reports: Bowel surgery, Colonoscopy, EGD Ortho: reports: Hip replacement /YARN TESTER: reports: Tubal ligation HEENT: reports: Tonsil/Adenoidectomy - Family & Social History Social History Notes: pt denies cigarette smoking, alcohol abuse and drug abuse Meds/Allgy - Home Medications Home Medications: Ambulatory Orders Medication Instructions Recorded Confirmed Cholecalciferol (Vitamin D3) 5,000 unit PO 08/31/16 09/28/17 [Vitamin D3] Multivitamin [Multivitamins] 1 cap PO DAILY 03/29/17 09/28/17 Mycophenolate Mofetil 1,000 mg PO BID 08/08/18 08/08/18 Sulfamethox/Trimeth 800/160 1 tab PO MOWEFR 08/08/18 08/08/18 [Bactrim Ds] predniSONE [Prednisone] 20 mg PO DAILY 08/08/18 08/08/18 - Allergies Allergies/Adverse Reactions: Allergies Allergy/AdvReac Type Severity Reaction Status Date / Time gluten AdvReac Nausea Verified 08/08/18 11:15 house dust AdvReac Unknown Verified 08/08/18 16:50 mold AdvReac Unknown Verified 08/08/18 16:50 pollen extracts AdvReac Unknown Verified 08/08/18 16:50 Review of Systems - Constitutional Constitutional: denies: Fatigue, Fever, Chills, Malaise, Weakness, Poor appetite, Diaphoresis, Night sweats - Eyes Eyes: denies: Pain, Irritation, Amaurosis, Blurred vision, Spots in vision, Field loss, Vision loss, Dipolpia - Ears, Nose & Throat Ears, Nose & Throat: denies: Ear pain, Hearing loss, Hearing aids, Tinnitus, Vertigo, Nasal pain, Nasal discharge, Nosebleeds, Nasal obstruction, Nasal congestion, Dentures, Sore throat, Hoarseness - Cardiovascular Cariovascular: denies: Irregular heart rate, Palpitations, Chest pain, Edema, Lightheadedness, Syncope, Exertional dyspnea, Decr. exercise tolerance - Respiratory Respiratory: reports: Cough, Sputum production, SOB with exertion. denies: Wheezing, Snoring, Hemoptysis, Orthopnea, SOB at rest, Apnea, Stridor - Gastrointestinal Gastrointestinal: denies: Abdominal pain, Abdominal distention, Constipation, Diarrhea, Change in bowel habits, Rectal bleeding, Black stools, Bloody stools, Nausea, Vomiting, Bile emesis, Tanvir blood emesis, Coffee grounds emesis, Reflux/heartburn - Genitourinary Genitourinary: denies: Dysuria, Frequency, Urgency, Hematuria, Incontinence, Flank pain, Nocturia, Urethral discharge - Musculoskeletal Musculoskeletal: denies: Muscle pain, Back pain, Muscle aches, Stiffness, Limited range of motion, Muscle weakness, Gout, Joint pain - Integumentary Integumentary: denies: Rash, Pruritis, Lesions, Dryness, Lumps, Acne, Pigment changes, Nail changes - Neurological Neurological: reports: General weakness. denies: Focal weakness, Headache, Dizziness, Numbness, Memory problems, Pre-existing deficit, Abnormal gait, Seizures, Incoordination, Slurred speech - Psychiatric Psychiatric: denies: Depression, Anxiety, Suicidal, Delusions, Hallucinations, Homicidal - Endocrine Endocrine: denies: Polyuria, Polydypsia, Polyphagia, Intolerance to cold, Intolerance to heat - Hematologic/Lymphatic Hematologic/Lymphatic: denies: Anemia, Bruising, Petechiae, Blood clots, Lymphadenopathy, Bleeding tendencies, Recurrent infections Exam - Vital Signs Vital Signs: Vital Signs x48h Temp Pulse Resp BP Pulse Ox 08/08/18 14:28 129 H 29 H 113/102 H 93 08/08/18 14:02 102 H 25 H 113/102 H 96 08/08/18 13:58 92 29 H 126/82 H 95 08/08/18 13:46 109 H 26 H 146/129 H 93 08/08/18 13:20 111 H 22 145/117 H 93 08/08/18 13:10 115 H 26 H 132/89 H 93 08/08/18 12:42 124 H 18 144/90 H 94 08/08/18 12:34 105 H 29 H 130/86 H 90 L 08/08/18 12:15 36.8 C 161 H 18 154/102 H 93 08/08/18 11:43 165 H 24 153/106 H 93 08/08/18 11:13 36.8 C 79 20 145/84 H 92 - Physical Exam General Appearance: positive: No acute distress, Alert. negative: Lethargic Eyes Bilateral: positive: Normal inspection, PERRL, No lid inflammation, Conjunctivae nml ENT: positive: ENT inspection nml, Pharynx nml, No signs of dehydration. negative: Purulent nasal drainage, Pharyngeal erythema, Oral lesions Neck: positive: Nml inspection, Thyroid nml, No JVD, Trachea midline. negative: Thyromegaly, Lymphadenopathy (R), Lymphadenopathy (L), Stiff neck, Swelling/bruising, Tracheal deviation Respiratory: positive: Chest non-tender, No respiratory distress. negative: W heezes, Rales, Rhonchi Cardiovascular: positive: Irregularly irregular, Tachycardia. negative: No murmur, No gallop, Extrasystoles, Bradycardia, JVD present, Systolic murmur, Diastolic murmur Peripheral Pulses: positive: 2+ Abdomen: positive: Non-tender, No organomegaly, Nml bowel sounds, No distention. negative: Tenderness, Guarding, Rebound Back: positive: Nml inspection. negative: CVA tenderness (R), CVA tenderness (L) Skin: positive: Color nml, No rash, Warm, Dry. negative: Cyanosis, Diaphoresis, Pallor Extremities: positive: Non-tender, Full ROM, Nml appearance. negative: Calf tenderness, Joint swelling, Uma's sign/cords Neurologic/Psychiatric: positive: Oriented x3, Sensation nml. negative: Weakness, Sensory loss, Facial droop, Slurred/abnml speech, Depressed mood/affect Sepsis Event Note (H) - Evaluation Current Stage of Sepsis: Ruled out Conclusion/Plan - Problem List (1) Dyspnea Conclusion/Plan: Etiology could be combination. CXR reveals new small effusion, bilateral lower extremity edema, and cardiomegaly, also pt has afib with RVR on initial HR 160. pt also has hx of RA which could affect lung function. treat underline over loaded fluid with Lasix control heart rate with Cardizen, dig, and beta jeanie order ECHO order d-dimer supplement of O2 as needed tele and vital monitor if no improved, consider of CT of chest Qualifiers: Dyspnea type: dyspnea on exertion Qualified Code(s): R06.09 - Other forms of dyspnea (2) Atrial fibrillation with rapid ventricular response Conclusion/Plan: ER gave pt 50 mg IV of Cardizem but still not control HR, 5mg Metoprolol IV was given but still not control HR. underline of pulmonary disease with hypoxia can lead to difficult to control HR. Dig 250 mcg load dosage, followup 125mcg dig as needed serum check dig concentration tele and vital monitor order ECHO (3) CHF (congestive heart failure) Conclusion/Plan: pt did not know she had hx of CHF. but pt present SOB with elevated BNP, CXR reveals small effusion, and cardiomegaly, and pt present bilateral low extremities edema ECHO, will followup lasix tele and vital monitor Qualifiers: Heart failure type: unspecified Heart failure chronicity: acute Qualified Code(s): I50.9 - Heart failure, unspecified (4) Hyperglycemia Conclusion/Plan: pt denies she had hx of diabetes, but pt's glucose is 466 today. pt took 20 mg prednisone daily. pt also has elevated iron gap but without serum ketone. Because fluid overload with SOB, pt can not be given IVF slide scale, bolus of insulin, ACHS, hypoglycemia protocol check A1C (5) Hyponatremia Conclusion/Plan: Na is 131, it is likely caused by hyperglycemia correct with insulin lab check (6) Elevated liver enzymes Conclusion/Plan: it seems be caused by congestive heart failure. if not improved, will consider check with US of upper abdomen and hepatitis panel lab check (7) Hx of rheumatoid arthritis Conclusion/Plan: stable, will hold Prednisone now for her fluid overload and hyperglycemia - Lab Results Fish Bones: 08/08/18 11:32 08/08/18 19:45 Core Measures - Anticipated LOS I expect patient to be DC'd or transferred within 96 hours.: Yes - DVT/VTE - Prophylaxis VTE/DVT Device ordered at admit?: Yes VTE/DVT Prophylaxis med ordered at admit?: Yes
[2018-08-08] MEDS ORDERED: FUROSEMIDE 40 MG/4 ML VIAL IVP SCH (15:00)
[2018-08-08 16:22] LABS: HB2 TOTAL 13.3 g/dL; HEMOGLOBIN A1C 1.06 g/dL; HEMOGLOBIN A1C % 9.4 % (4.6-6.2)
[2018-08-08] MEDS: SODIUM CHLORIDE FLUSH 0.9% 10 ML SYRINGE IVP SCH (16:26)
[2018-08-08] MEDS: METOPROLOL 5 MG/5 ML VIAL IVP PRN (17:22)
[2018-08-08] MEDS: SODIUM CHLORIDE FLUSH 0.9% 10 ML SYRINGE IVP PRN ×2 (17:22→18:29)
[2018-08-08] MEDS ORDERED: DIGOXIN 500 MCG/2 ML AMP IVP SCH ×4 (17:41→18:00)
[2018-08-08] MEDS ORDERED: INSULIN ASPART 300 UNIT/3 ML PEN SUBQ ONE (17:52)
[2018-08-08] MEDS: INSULIN ASPART 300 UNIT/3 ML PEN SUBQ SCH ×2 (18:15→21:20)
[2018-08-08 19:57] LABS: CALCIUM 8.5 mg/dL (8.5-10.3)
[2018-08-08] MEDS ORDERED: INSULIN GLARGINE 300 UNIT/3 ML PEN SUBQ SCH (21:00)
[2018-08-08] MEDS ORDERED: APIXABAN 5 MG TABLET PO SCH (21:00)
[2018-08-08] MEDS: FAMOTIDINE 20 MG TABLET PO SCH (22:09)
[2018-08-09] MEDS ORDERED: DIGOXIN 500 MCG/2 ML AMP IVP SCH (00:01)
[2018-08-09] MEDS: SODIUM CHLORIDE FLUSH 0.9% 10 ML SYRINGE IVP SCH ×3 (00:14→16:45)
[2018-08-09] MEDS: FUROSEMIDE 40 MG/4 ML VIAL IVP SCH ×2 (05:52→13:58)
[2018-08-09] MEDS: SODIUM CHLORIDE FLUSH 0.9% 10 ML SYRINGE IVP PRN (05:52)
[2018-08-09 06:01] LABS: BASOPHILS % (AUTO) 1.3 %; EOSINOPHILS % (AUTO) 1.5 %; HGB - HEMOGLOBIN 11.4 g/dL (12.0-16.0); MEAN CORPUSCULAR HEMOGLOBIN 31.1 pg (27.0-31.0); MEAN CORPUSCULAR HGB CONC 33.2 g/dL (32.0-36.0); MEAN CORPUSCULAR VOLUME 93.6 fL (81.0-99.0); MEAN PLATELET VOLUME 7.8 fL (7.9-10.8); MONOCYTES % (AUTO) 4.8 %; NEUTROPHILS % (AUTO) 65.4 %; PLT - PLATELET COUNT 118 10^3/uL (130-450); RED BLOOD COUNT 3.65 10^6/uL (4.20-5.40); RED CELL DISTRIBUTION WIDTH 19.8 % (12.0-15.0); WHITE BLOOD COUNT 8.4 x10^3/uL (4.8-10.8)
[2018-08-09 06:14] LABS: ALBUMIN 2.9 g/dL (3.2-5.5); ALBUMIN/GLOBULIN RATIO 1.1 (1.0-2.2); BILIRUBIN,TOTAL 1.1 mg/dL (0.2-1.0); CALCIUM 8.2 mg/dL (8.5-10.3); CREATININE 0.8 mg/dL (0.4-1.0); TOTAL PROTEIN 5.6 g/dL (6.7-8.2)
[2018-08-09 06:18] LABS: ABNORMAL LYMPHS % (MANUAL) 0 %; BAND NEUTROPHILS % (MANUAL) 0 %; DIGOXIN 0.3 ng/mL
[2018-08-09 06:51] LABS: BASOPHILS # (MANUAL) 0.1 10^3/uL (0-0.1); BASOPHILS % (MANUAL) 1 %; EOSINOPHILS # (MANUAL) 0.3 10^3/uL (0-0.7); LYMPHOCYTES # (MANUAL) 2.6 10^3/uL (1.5-3.5); LYMPHOCYTES % (MANUAL) 31 %; MONOCYTES # (MANUAL) 0.7 10^3/uL (0.0-1.0); MYELOCYTES % (MANUAL) 1 %; NEUTROPHILS # (MANUAL) 4.6 10^3/uL (1.5-6.6); NEUTROPHILS % (MANUAL) 55 %; PROMYELOCYTES % (MANUAL) 1 %
[2018-08-09 06:58] LABS: PLATELET ESTIMATE, MANUAL NORMAL (130-450,000) (NORMAL); PLATELET MORPHOLOGY NORMAL APPEARANCE (NORMAL)
[2018-08-09 06:59] LABS: DIFFERENTIAL COMMENT MANUAL DIFFERENTIAL
[2018-08-09] MEDS ORDERED: INSULIN GLARGINE 300 UNIT/3 ML PEN SUBQ SCH (08:00)
[2018-08-09] MEDS: INSULIN ASPART 300 UNIT/3 ML PEN SUBQ SCH ×3 (08:13→16:38)
[2018-08-09] MEDS: FAMOTIDINE 20 MG TABLET PO SCH (08:13)
[2018-08-09] MEDS ORDERED: DIGOXIN 125 MCG TABLET PO SCH (09:00)
[2018-08-09] MEDS ORDERED: POLYETHYLENE GLYCOL 3350 17 GM PACKET PO SCH (09:00)
[2018-08-09] MEDS ORDERED: APIXABAN 5 MG TABLET PO SCH (09:00)
[2018-08-09] MEDS ORDERED: diltiaZEM INJ 5 MG/ML VIAL IVP SCH (11:12)
--- NOTE | 2018-08-09 11:43 | PROVIDER PROGRESS NOTE ---
Subjective - Prog Note Date Prog Note Date: 08/09/18 Prog Note Time: 11:41 - Subjective Pt reports feeling: Improved Objective - Vital Signs/Intake & Output Reviewed Vital Signs: Yes Vital Signs: Vital Signs x48h Temp Pulse Pulse Pulse Resp BP BP 08/09/18 11:32 118 H 92/58 L 08/09/18 11:26 96/69 08/09/18 10:54 36.4 C L 92 16 08/09/18 07:44 36.4 C L 98 16 126/74 08/09/18 05:48 36.4 C L 63 20 120/73 Pulse Ox 08/09/18 11:32 08/09/18 11:26 08/09/18 10:54 98 08/09/18 07:44 98 08/09/18 05:48 95 Intake & Output: Intake & Output 08/06/18 08/07/18 08/08/18 08/09/18 23:59 23:59 23:59 23:59 Intake Total 565 720 Output Total 1675 1350 Balance -1110 -630 - Objective General Appearance: positive: Alert, Mild distress Eyes Bilateral: positive: PERRL ENT: positive: Pharynx nml, No signs of dehydration Neck: positive: Thyroid nml, No JVD, Trachea midline Respiratory: positive: Chest non-tender, No respiratory distress, Other - Lab Results Fish Bones: 08/09/18 05:49 08/09/18 05:49 Other Labs: Lab Results x24hrs 08/09/18 08/09/18 08/09/18 Range/Units 11:33 07:39 05:49 WBC (4.8-10.8) x10^3/uL RBC (4.20-5.40) 10^6/uL Hgb (12.0-16.0) g/dL Hct (37.0-47.0) % MCV (81.0-99.0) fL MCH (27.0-31.0) pg MCHC (32.0-36.0) g/dL RDW (12.0-15.0) % Plt Count (130-450) 10^3/uL MPV (7.9-10.8) fL Neut # (Auto) Lymph # (Auto) Bond # (Auto) Eos # (Auto) Baso # (Auto) Absolute Nucleated RBC Total Counted Band Neuts % (Manual) (0 - 10) % Abnorm Lymph % (Manual) % Myelocytes % ( - 0) % Promyelocytes % ( - 0) % Nucleated RBC % Neutrophils # (Manual) (1.5-6.6) 10^3/uL Lymphocytes # (Manual) (1.5-3.5) 10^3/uL Monocytes # (Manual) (0.0-1.0) 10^3/uL Eosinophils # (Manual) (0-0.7) 10^3/uL Basophils # (Manual) (0-0.1) 10^3/uL Nucleated RBCs % Differential Comment WBC Morphology (NORMAL) Platelet Estimate (NORMAL) Platelet Morphology (NORMAL) RBC Morph Micro Appear (NORMAL) D-Dimer (200.0-255.0) ng/mL Sodium (135-145) mmol/L Potassium (3.5-5.0) mmol/L Chloride (101-111) mmol/L Carbon Dioxide (21-32) mmol/L Anion Gap (6-13) BUN (6-20) mg/dL Creatinine (0.4-1.0) mg/dL Estimated GFR (MDRD) (>89) Glucose (70-100) mg/dL POC Whole Bld Glucose 165 H 109 H (70 - 100) mg/dL Glycated Hemoglobin (4.6-6.2) % Estim Average Glucose (70-100) Calcium (8.5-10.3) mg/dL Magnesium (1.7-2.8) mg/dL Total Bilirubin (0.2-1.0) mg/dL AST (10-42) IU/L ALT (10-60) IU/L Alkaline Phosphatase (42-121) IU/L Troponin I (<0.49) ng/mL B-Natriuretic Peptide 348 H (5-100) pg/mL Total Protein (6.7-8.2) g/dL Albumin (3.2-5.5) g/dL Globulin (2.1-4.2) g/dL Albumin/Globulin Ratio (1.0-2.2) Lipase (22-51) U/L TSH (0.34-5.60) uIU/mL Urine Color Urine Clarity (CLEAR) Urine pH (5.0-7.5) PH Ur Specific Jack (1.002-1.030) Urine Protein (NEGATIVE) mg/dL Urine Glucose (UA) (NEGATIVE) mg/dL Urine Ketones (NEGATIVE) mg/dL Urine Occult Blood (NEGATIVE) Urine Nitrite (NEGATIVE) Urine Bilirubin (NEGATIVE) Urine Urobilinogen (NORMAL) E.U./dL Ur Leukocyte Esterase (NEGATIVE) Urine RBC (0-5) /HPF Urine WBC (0-5) /HPF Ur Squamous Epith Cells (<= Few) Urine Bacteria (None Seen) /HPF Urine Culture Comments Last Dose Date Last Dose Time Digoxin ng/mL Serum Ketones (NEGATIVE) 08/09/18 08/09/18 08/09/18 Range/Units 05:49 05:49 05:49 WBC 8.4 (4.8-10.8) x10^3/uL RBC 3.65 L (4.20-5.40) 10^6/uL Hgb 11.4 L (12.0-16.0) g/dL Hct 34.2 L (37.0-47.0) % MCV 93.6 (81.0-99.0) fL MCH 31.1 H (27.0-31.0) pg MCHC 33.2 (32.0-36.0) g/dL RDW 19.8 H (12.0-15.0) % Plt Count 118 L (130-450) 10^3/uL MPV 7.8 L (7.9-10.8) fL Neut # (Auto) Not Reportable Lymph # (Auto) Not Reportable Bond # (Auto) Not Reportable Eos # (Auto) Not Reportable Baso # (Auto) Not Reportable Absolute Nucleated RBC Not Reportable Total Counted 100 Band Neuts % (Manual) 0 (0 - 10) % Abnorm Lymph % (Manual) 0 % Myelocytes % 1 H ( - 0) % Promyelocytes % 1 H ( - 0) % Nucleated RBC % Not Reportable Neutrophils # (Manual) 4.6 (1.5-6.6) 10^3/uL Lymphocytes # (Manual) 2.6 (1.5-3.5) 10^3/uL Monocytes # (Manual) 0.7 (0.0-1.0) 10^3/uL Eosinophils # (Manual) 0.3 (0-0.7) 10^3/uL Basophils # (Manual) 0.1 (0-0.1) 10^3/uL Nucleated RBCs % Differential Comment MANUAL DIFFERENTIAL WBC Morphology NORMAL APPEARANCE (NORMAL) Platelet Estimate NORMAL (130-450,000) (NORMAL) Platelet Morphology NORMAL APPEARANCE (NORMAL) RBC Morph Micro Appear 1+ POLYCHROMASIA (NORMAL) D-Dimer (200.0-255.0) ng/mL Sodium 139 (135-145) mmol/L Potassium 3.1 L (3.5-5.0) mmol/L Chloride 102 (101-111) mmol/L Carbon Dioxide 25 (21-32) mmol/L Anion Gap 12.0 (6-13) BUN 16 (6-20) mg/dL Creatinine 0.8 (0.4-1.0) mg/dL Estimated GFR (MDRD) 71 L (>89) Glucose 101 H (70-100) mg/dL POC Whole Bld Glucose (70 - 100) mg/dL Glycated Hemoglobin (4.6-6.2) % Estim Average Glucose (70-100) Calcium 8.2 L (8.5-10.3) mg/dL Magnesium (1.7-2.8) mg/dL Total Bilirubin 1.1 H (0.2-1.0) mg/dL AST 42 (10-42) IU/L ALT 115 H (10-60) IU/L Alkaline Phosphatase 148 H (42-121) IU/L Troponin I (<0.49) ng/mL B-Natriuretic Peptide (5-100) pg/mL Total Protein 5.6 L (6.7-8.2) g/dL Albumin 2.9 L (3.2-5.5) g/dL Globulin 2.7 (2.1-4.2) g/dL Albumin/Globulin Ratio 1.1 (1.0-2.2) Lipase (22-51) U/L TSH (0.34-5.60) uIU/mL Urine Color Urine Clarity (CLEAR) Urine pH (5.0-7.5) PH Ur Specific Jack (1.002-1.030) Urine Protein (NEGATIVE) mg/dL Urine Glucose (UA) (NEGATIVE) mg/dL Urine Ketones (NEGATIVE) mg/dL Urine Occult Blood (NEGATIVE) Urine Nitrite (NEGATIVE) Urine Bilirubin (NEGATIVE) Urine Urobilinogen (NORMAL) E.U./dL Ur Leukocyte Esterase (NEGATIVE) Urine RBC (0-5) /HPF Urine WBC (0-5) /HPF Ur Squamous Epith Cells (<= Few) Urine Bacteria (None Seen) /HPF Urine Culture Comments Last Dose Date UNKNOWN Last Dose Time UNKNOWN Digoxin 0.3 ng/mL Serum Ketones (NEGATIVE) 08/08/18 08/08/18 08/08/18 Range/Units 22:10 20:39 19:45 WBC (4.8-10.8) x10^3/uL RBC (4.20-5.40) 10^6/uL Hgb (12.0-16.0) g/dL Hct (37.0-47.0) % MCV (81.0-99.0) fL MCH (27.0-31.0) pg MCHC (32.0-36.0) g/dL RDW (12.0-15.0) % Plt Count (130-450) 10^3/uL MPV (7.9-10.8) fL Neut # (Auto) Lymph # (Auto) Bond # (Auto) Eos # (Auto) Baso # (Auto) Absolute Nucleated RBC Total Counted Band Neuts % (Manual) (0 - 10) % Abnorm Lymph % (Manual) % Myelocytes % ( - 0) % Promyelocytes % ( - 0) % Nucleated RBC % Neutrophils # (Manual) (1.5-6.6) 10^3/uL Lymphocytes # (Manual) (1.5-3.5) 10^3/uL Monocytes # (Manual) (0.0-1.0) 10^3/uL Eosinophils # (Manual) (0-0.7) 10^3/uL Basophils # (Manual) (0-0.1) 10^3/uL Nucleated RBCs % Differential Comment WBC Morphology (NORMAL) Platelet Estimate (NORMAL) Platelet Morphology (NORMAL) RBC Morph Micro Appear (NORMAL) D-Dimer > 1050.0 H (200.0-255.0) ng/mL Sodium 136 (135-145) mmol/L Potassium 3.5 (3.5-5.0) mmol/L Chloride 99 L (101-111) mmol/L Carbon Dioxide 22 (21-32) mmol/L Anion Gap 15.0 H (6-13) BUN 15 (6-20) mg/dL Creatinine 1.0 (0.4-1.0) mg/dL Estimated GFR (MDRD) 55 L (>89) Glucose 201 H (70-100) mg/dL POC Whole Bld Glucose 134 H (70 - 100) mg/dL Glycated Hemoglobin (4.6-6.2) % Estim Average Glucose (70-100) Calcium 8.5 (8.5-10.3) mg/dL Magnesium (1.7-2.8) mg/dL Total Bilirubin (0.2-1.0) mg/dL AST (10-42) IU/L ALT (10-60) IU/L Alkaline Phosphatase (42-121) IU/L Troponin I (<0.49) ng/mL B-Natriuretic Peptide (5-100) pg/mL Total Protein (6.7-8.2) g/dL Albumin (3.2-5.5) g/dL Globulin (2.1-4.2) g/dL Albumin/Globulin Ratio (1.0-2.2) Lipase (22-51) U/L TSH (0.34-5.60) uIU/mL Urine Color Urine Clarity (CLEAR) Urine pH (5.0-7.5) PH Ur Specific Jack (1.002-1.030) Urine Protein (NEGATIVE) mg/dL Urine Glucose (UA) (NEGATIVE) mg/dL Urine Ketones (NEGATIVE) mg/dL Urine Occult Blood (NEGATIVE) Urine Nitrite (NEGATIVE) Urine Bilirubin (NEGATIVE) Urine Urobilinogen (NORMAL) E.U./dL Ur Leukocyte Esterase (NEGATIVE) Urine RBC (0-5) /HPF Urine WBC (0-5) /HPF Ur Squamous Epith Cells (<= Few) Urine Bacteria (None Seen) /HPF Urine Culture Comments Last Dose Date Last Dose Time Digoxin ng/mL Serum Ketones (NEGATIVE) 08/08/18 08/08/18 08/08/18 Range/Units 16:59 16:12 14:47 WBC (4.8-10.8) x10^3/uL RBC (4.20-5.40) 10^6/uL Hgb (12.0-16.0) g/dL Hct (37.0-47.0) % MCV (81.0-99.0) fL MCH (27.0-31.0) pg MCHC (32.0-36.0) g/dL RDW (12.0-15.0) % Plt Count (130-450) 10^3/uL MPV (7.9-10.8) fL Neut # (Auto) Lymph # (Auto) Bond # (Auto) Eos # (Auto) Baso # (Auto) Absolute Nucleated RBC Total Counted Band Neuts % (Manual) (0 - 10) % Abnorm Lymph % (Manual) % Myelocytes % ( - 0) % Promyelocytes % ( - 0) % Nucleated RBC % Neutrophils # (Manual) (1.5-6.6) 10^3/uL Lymphocytes # (Manual) (1.5-3.5) 10^3/uL Monocytes # (Manual) (0.0-1.0) 10^3/uL Eosinophils # (Manual) (0-0.7) 10^3/uL Basophils # (Manual) (0-0.1) 10^3/uL Nucleated RBCs % Differential Comment WBC Morphology (NORMAL) Platelet Estimate (NORMAL) Platelet Morphology (NORMAL) RBC Morph Micro Appear (NORMAL) D-Dimer (200.0-255.0) ng/mL Sodium (135-145) mmol/L Potassium (3.5-5.0) mmol/L Chloride (101-111) mmol/L Carbon Dioxide (21-32) mmol/L Anion Gap (6-13) BUN (6-20) mg/dL Creatinine (0.4-1.0) mg/dL Estimated GFR (MDRD) (>89) Glucose (70-100) mg/dL POC Whole Bld Glucose 415 H 427 H (70 - 100) mg/dL Glycated Hemoglobin 9.4 H (4.6-6.2) % Estim Average Glucose 223 H (70-100) Calcium (8.5-10.3) mg/dL Magnesium (1.7-2.8) mg/dL Total Bilirubin (0.2-1.0) mg/dL AST (10-42) IU/L ALT (10-60) IU/L Alkaline Phosphatase (42-121) IU/L Troponin I (<0.49) ng/mL B-Natriuretic Peptide (5-100) pg/mL Total Protein (6.7-8.2) g/dL Albumin (3.2-5.5) g/dL Globulin (2.1-4.2) g/dL Albumin/Globulin Ratio (1.0-2.2) Lipase (22-51) U/L TSH (0.34-5.60) uIU/mL Urine Color Urine Clarity (CLEAR) Urine pH (5.0-7.5) PH Ur Specific Jack (1.002-1.030) Urine Protein (NEGATIVE) mg/dL Urine Glucose (UA) (NEGATIVE) mg/dL Urine Ketones (NEGATIVE) mg/dL Urine Occult Blood (NEGATIVE) Urine Nitrite (NEGATIVE) Urine Bilirubin (NEGATIVE) Urine Urobilinogen (NORMAL) E.U./dL Ur Leukocyte Esterase (NEGATIVE) Urine RBC (0-5) /HPF Urine WBC (0-5) /HPF Ur Squamous Epith Cells (<= Few) Urine Bacteria (None Seen) /HPF Urine Culture Comments Last Dose Date Last Dose Time Digoxin ng/mL Serum Ketones (NEGATIVE) 08/08/18 08/08/18 08/08/18 Range/Units 14:00 11:52 11:52 WBC (4.8-10.8) x10^3/uL RBC (4.20-5.40) 10^6/uL Hgb (12.0-16.0) g/dL Hct (37.0-47.0) % MCV (81.0-99.0) fL MCH (27.0-31.0) pg MCHC (32.0-36.0) g/dL RDW (12.0-15.0) % Plt Count (130-450) 10^3/uL MPV (7.9-10.8) fL Neut # (Auto) Lymph # (Auto) Bond # (Auto) Eos # (Auto) Baso # (Auto) Absolute Nucleated RBC Total Counted Band Neuts % (Manual) (0 - 10) % Abnorm Lymph % (Manual) % Myelocytes % ( - 0) % Promyelocytes % ( - 0) % Nucleated RBC % Neutrophils # (Manual) (1.5-6.6) 10^3/uL Lymphocytes # (Manual) (1.5-3.5) 10^3/uL Monocytes # (Manual) (0.0-1.0) 10^3/uL Eosinophils # (Manual) (0-0.7) 10^3/uL Basophils # (Manual) (0-0.1) 10^3/uL Nucleated RBCs % Differential Comment WBC Morphology (NORMAL) Platelet Estimate (NORMAL) Platelet Morphology (NORMAL) RBC Morph Micro Appear (NORMAL) D-Dimer (200.0-255.0) ng/mL Sodium (135-145) mmol/L Potassium (3.5-5.0) mmol/L Chloride (101-111) mmol/L Carbon Dioxide (21-32) mmol/L Anion Gap (6-13) BUN (6-20) mg/dL Creatinine (0.4-1.0) mg/dL Estimated GFR (MDRD) (>89) Glucose (70-100) mg/dL POC Whole Bld Glucose (70 - 100) mg/dL Glycated Hemoglobin (4.6-6.2) % Estim Average Glucose (70-100) Calcium (8.5-10.3) mg/dL Magnesium (1.7-2.8) mg/dL Total Bilirubin (0.2-1.0) mg/dL AST (10-42) IU/L ALT (10-60) IU/L Alkaline Phosphatase (42-121) IU/L Troponin I (<0.49) ng/mL B-Natriuretic Peptide 515 H (5-100) pg/mL Total Protein (6.7-8.2) g/dL Albumin (3.2-5.5) g/dL Globulin (2.1-4.2) g/dL Albumin/Globulin Ratio (1.0-2.2) Lipase (22-51) U/L TSH 2.85 (0.34-5.60) uIU/mL Urine Color YELLOW Urine Clarity CLEAR (CLEAR) Urine pH 5.5 (5.0-7.5) PH Ur Specific Jack <=1.005 (1.002-1.030) Urine Protein NEGATIVE (NEGATIVE) mg/dL Urine Glucose (UA) >=1000 H (NEGATIVE) mg/dL Urine Ketones NEGATIVE (NEGATIVE) mg/dL Urine Occult Blood TRACE-LYSE (NEGATIVE) Urine Nitrite NEGATIVE (NEGATIVE) Urine Bilirubin NEGATIVE (NEGATIVE) Urine Urobilinogen 0.2 (NORMAL) (NORMAL) E.U./dL Ur Leukocyte Esterase NEGATIVE (NEGATIVE) Urine RBC 0-5 (0-5) /HPF Urine WBC 0-3 (0-5) /HPF Ur Squamous Epith Cells FEW Squamous (<= Few) Urine Bacteria None Seen (None Seen) /HPF Urine Culture Comments NOT INDICATED Last Dose Date Last Dose Time Digoxin ng/mL Serum Ketones (NEGATIVE) 08/08/18 08/08/18 08/08/18 Range/Units 11:52 11:33 11:32 WBC (4.8-10.8) x10^3/uL RBC (4.20-5.40) 10^6/uL Hgb (12.0-16.0) g/dL Hct (37.0-47.0) % MCV (81.0-99.0) fL MCH (27.0-31.0) pg MCHC (32.0-36.0) g/dL RDW (12.0-15.0) % Plt Count (130-450) 10^3/uL MPV (7.9-10.8) fL Neut # (Auto) Lymph # (Auto) Bond # (Auto) Eos # (Auto) Baso # (Auto) Absolute Nucleated RBC Total Counted Band Neuts % (Manual) (0 - 10) % Abnorm Lymph % (Manual) % Myelocytes % ( - 0) % Promyelocytes % ( - 0) % Nucleated RBC % Neutrophils # (Manual) (1.5-6.6) 10^3/uL Lymphocytes # (Manual) (1.5-3.5) 10^3/uL Monocytes # (Manual) (0.0-1.0) 10^3/uL Eosinophils # (Manual) (0-0.7) 10^3/uL Basophils # (Manual) (0-0.1) 10^3/uL Nucleated RBCs % Differential Comment WBC Morphology (NORMAL) Platelet Estimate (NORMAL) Platelet Morphology (NORMAL) RBC Morph Micro Appear (NORMAL) D-Dimer (200.0-255.0) ng/mL Sodium (135-145) mmol/L Potassium (3.5-5.0) mmol/L Chloride (101-111) mmol/L Carbon Dioxide (21-32) mmol/L Anion Gap (6-13) BUN (6-20) mg/dL Creatinine (0.4-1.0) mg/dL Estimated GFR (MDRD) (>89) Glucose (70-100) mg/dL POC Whole Bld Glucose (70 - 100) mg/dL Glycated Hemoglobin (4.6-6.2) % Estim Average Glucose (70-100) Calcium (8.5-10.3) mg/dL Magnesium 2.1 (1.7-2.8) mg/dL Total Bilirubin (0.2-1.0) mg/dL AST (10-42) IU/L ALT (10-60) IU/L Alkaline Phosphatase (42-121) IU/L Troponin I < 0.04 (<0.49) ng/mL B-Natriuretic Peptide (5-100) pg/mL Total Protein (6.7-8.2) g/dL Albumin (3.2-5.5) g/dL Globulin (2.1-4.2) g/dL Albumin/Globulin Ratio (1.0-2.2) Lipase (22-51) U/L TSH (0.34-5.60) uIU/mL Urine Color Urine Clarity (CLEAR) Urine pH (5.0-7.5) PH Ur Specific Jack (1.002-1.030) Urine Protein (NEGATIVE) mg/dL Urine Glucose (UA) (NEGATIVE) mg/dL Urine Ketones (NEGATIVE) mg/dL Urine Occult Blood (NEGATIVE) Urine Nitrite (NEGATIVE) Urine Bilirubin (NEGATIVE) Urine Urobilinogen (NORMAL) E.U./dL Ur Leukocyte Esterase (NEGATIVE) Urine RBC (0-5) /HPF Urine WBC (0-5) /HPF Ur Squamous Epith Cells (<= Few) Urine Bacteria (None Seen) /HPF Urine Culture Comments Last Dose Date Last Dose Time Digoxin ng/mL Serum Ketones NEGATIVE (NEGATIVE) 08/08/18 08/08/18 Range/Units 11:32 11:32 WBC 11.9 H (4.8-10.8) x10^3/uL RBC 4.12 L (4.20-5.40) 10^6/uL Hgb 12.7 (12.0-16.0) g/dL Hct 39.2 (37.0-47.0) % MCV 95.2 (81.0-99.0) fL MCH 30.8 (27.0-31.0) pg MCHC 32.3 (32.0-36.0) g/dL RDW 20.3 H (12.0-15.0) % Plt Count 136 (130-450) 10^3/uL MPV 8.6 (7.9-10.8) fL Neut # (Auto) Not Reportable Lymph # (Auto) Not Reportable Bond # (Auto) Not Reportable Eos # (Auto) Not Reportable Baso # (Auto) Not Reportable Absolute Nucleated RBC Not Reportable Total Counted 100 Band Neuts % (Manual) 5 (0 - 10) % Abnorm Lymph % (Manual) 0 % Myelocytes % ( - 0) % Promyelocytes % ( - 0) % Nucleated RBC % Not Reportable Neutrophils # (Manual) 10.0 H (1.5-6.6) 10^3/uL Lymphocytes # (Manual) 1.7 (1.5-3.5) 10^3/uL Monocytes # (Manual) 0.2 (0.0-1.0) 10^3/uL Eosinophils # (Manual) 0.0 (0-0.7) 10^3/uL Basophils # (Manual) 0.0 (0-0.1) 10^3/uL Nucleated RBCs 1 % Differential Comment MANUAL DIFFERENTIAL WBC Morphology NORMAL APPEARANCE (NORMAL) Platelet Estimate NORMAL (130-450,000) (NORMAL) Platelet Morphology NORMAL APPEARANCE (NORMAL) RBC Morph Micro Appear 1+ MACROCYTOSIS (NORMAL) D-Dimer (200.0-255.0) ng/mL Sodium 131 L (135-145) mmol/L Potassium 4.2 (3.5-5.0) mmol/L Chloride 98 L (101-111) mmol/L Carbon Dioxide 17 L (21-32) mmol/L Anion Gap 16.0 H (6-13) BUN 19 (6-20) mg/dL Creatinine 1.0 (0.4-1.0) mg/dL Estimated GFR (MDRD) 55 L (>89) Glucose 466 H (70-100) mg/dL POC Whole Bld Glucose (70 - 100) mg/dL Glycated Hemoglobin (4.6-6.2) % Estim Average Glucose (70-100) Calcium 8.7 (8.5-10.3) mg/dL Magnesium (1.7-2.8) mg/dL Total Bilirubin 1.5 H (0.2-1.0) mg/dL AST 78 H (10-42) IU/L ALT 162 H (10-60) IU/L Alkaline Phosphatase 189 H (42-121) IU/L Troponin I (<0.49) ng/mL B-Natriuretic Peptide (5-100) pg/mL Total Protein 6.6 L (6.7-8.2) g/dL Albumin 3.4 (3.2-5.5) g/dL Globulin 3.2 (2.1-4.2) g/dL Albumin/Globulin Ratio 1.1 (1.0-2.2) Lipase 28 (22-51) U/L TSH (0.34-5.60) uIU/mL Urine Color Urine Clarity (CLEAR) Urine pH (5.0-7.5) PH Ur Specific Jack (1.002-1.030) Urine Protein (NEGATIVE) mg/dL Urine Glucose (UA) (NEGATIVE) mg/dL Urine Ketones (NEGATIVE) mg/dL Urine Occult Blood (NEGATIVE) Urine Nitrite (NEGATIVE) Urine Bilirubin (NEGATIVE) Urine Urobilinogen (NORMAL) E.U./dL Ur Leukocyte Esterase (NEGATIVE) Urine RBC (0-5) /HPF Urine WBC (0-5) /HPF Ur Squamous Epith Cells (<= Few) Urine Bacteria (None Seen) /HPF Urine Culture Comments Last Dose Date Last Dose Time Digoxin ng/mL Serum Ketones (NEGATIVE) Sepsis Event Note (H) - Evaluation Current Stage of Sepsis: Ruled out
[2018-08-09] MEDS ORDERED: MAGNESIUM OXIDE 400 MG TABLET PO SCH (11:47)
[2018-08-09] MEDS ORDERED: diazePAM 5 MG TABLET PO ONE (11:55)
[2018-08-09] MEDS ORDERED: POTASSIUM CHLORIDE 20 MEQ TABLET PO SCH (12:00)
[2018-08-09] MEDS ORDERED: IOVERSOL 320 100 ML VIAL IVP ONE ×2 (12:04→14:15)
--- NOTE | 2018-08-09 14:01 | CT Report ---
Reason: evaluate for pulmonary emboli, elevated ddimer Procedure Date: 08/09/2018 Accession Number: [id number] / [id number] Procedure: CT - ANGIO CHEST W/WO CPT Code: FULL RESULT: EXAM: CT ANGIOGRAM CHEST EXAM DATE: 08/09/2018 01:41 PM. CLINICAL HISTORY: Evaluate for pulmonary emboli, elevated D-dimer. COMPARISON: CHEST W/O 05/03/2018 11:43 AM. TECHNIQUE: Routine helical imaging was performed through the chest in the pulmonary arterial phase. IV Contrast: 80 mL Optiray 320. Reconstructions: Coronal 3-D MIP reconstructions.Sagittal and coronal. In accordance with CT protocol optimization, one or more of the following dose reduction techniques were utilized for this exam: automated exposure control, adjustment of mA and/or KV based on patient size, or use of iterative reconstructive technique. FINDINGS: Pulmonary Arteries: Diagnostic quality: Adequate through the segmental arteries. A total of 2 acute-appearing saddle emboli are seen crossing the main pulmonary artery bifurcation with near occlusive thrombus burden seen bilaterally reaching into essentially all lobar branches with partial sparing of the right upper lobe. The RV LV ratio at the valve plane is greater than 1. The septum is flattened. There is only minimal reflux of contrast towards the hepatic IVC. Lungs/Pleura: Evaluation of lungs is limited by technique and motion artifact. There is interstitial thickening throughout the lungs with a small amount of right basilar consolidation. No sizable pleural effusion or pneumothorax. Mediastinum: A few prominent lymph nodes do not meet size criteria. There is no pericardial effusion. Thoracic Aorta: Mildly calcified. Upper Abdomen: Appearance of the posterior aspect of the left kidney is suggestive of prior therapy, possibly ablation. Other: None. IMPRESSION: There are 2 acute appearing saddle emboli crossing the bifurcation of the pulmonary artery with significant bilateral lobar thrombotic burden. [facility] The above call report findings were discussed with Kerry Lane by Dr. Piyush Davis at 01:48 PM on 08/09/2018.
[2018-08-09] MEDS ORDERED: ENOXAPARIN 80 MG/0.8 ML SYRINGE SUBQ SCH (16:00)
[2018-08-09] MEDS: METOPROLOL 5 MG/5 ML VIAL IVP PRN (16:39)
--- NOTE | 2018-08-09 17:20 | DISCHARGE SUMMARY ---
Discharge Summary Admit Date: 08/08/18 Discharge Date: 08/09/18 Discharging Provider: APOLINAR Mendenhall Primary Care Provider: Crow Daugherty Code Status: Attempt Resuscitation Condition at Discharge: Serious Discharge Disposition: 02 Transfer Acute Care Hosp Discharge Facility Name: [facility] - DIAGNOSES Admission Diagnoses: Congestive heart disease Bilateral leg edema Atrial fibrillation with rapid ventricular response Severe hyperglycemia due to diabetes mellitus Hx of rheumatic joint disease Hyponatremia Elevated liver enzymes Discharge Diagnoses with Status of Each Condition: Saddle pulmonary emboli- new today after CTA, elevated d dimer, now on Lovenox 1:1, still requires oxygen Bilateral leg edema- ongoing, continues on IV lasix Atrial fibrillation with rapid ventricular response- new onset, likely from PEs, digoxin, diltiazem, metoprolol IV with no effect, continues on Lovenox Pulmonary hypertension- Noted on echo today, elevated PASP at 68 mmHg, enlarged RA and RV Anticoagulation- Lovenox 1:1 for full anticoagulation given a fib and now PE Hypoxia- No prior home O2, now on 3-4L per nasal cannula Severe hyperglycemia due to diabetes mellitus- A1C was 9.4%, SSI, started on nightly Lantus, no prior treatment ILD- Establishing social media intern at [facility], no appointment yet, has seen Dr. Jones at [facility] in August of 2017 Hx of rheumatic joint disease- Continues on prednisone, low dose at home Hyponatremia- improved, stable Congestive heart disease- new onset, right sided failure based on echo, low normal EF of 50-55% Elevated liver enzymes- likely due to acute condition, lack of liver perfusion, denies ETOH - HPI History of Present Illness: Linda Jacques is 73-year old female with a PMH significant for rheumatoid ar thritis, obesity, status post of multiple surgeries including knee replacement, hemicolectomy due to severe diverticulitis, sigmoid mass, ILD, and diet controlled DM. She presented to the ED with complaints of shortness of breath that has become worse in the past 24 hours, but first started back on 08/02/2018. She reported such profound activity intolerance that just taking a few steps, she had to take a break and sit down. She admitted to a chronic cough with occasional clear sputum. She also notes that she has noticed that her BLEs have become more swollen making it more difficult to walk or put on her shoes, and notes, "otherwise, I am healthy." She does report that prior to coming to the ED, she called her PCP to report these symptoms who recommended coming straight to the ED. A chest x-ray revealed a new small pleural effusion, and cardiomegaly. Lab tests showed an elevated BNP at 515, Glucose of 466, slight increase WBC count at 11.9, sodium of 131, increased anion gap 16, no serum ketones, and elevated liver enzymes. An EKG showed atrial fibrillation with RVR and an initial heart rate of 165. The patient recalls hearing that she was diabetic, but has not started treatment for this and states that it was caused by her chronic predisone use. She denied a history of heart attack, stroke, or cancer. On initial exam the patient denied chest pain, palpitations, dizziness, fevers, chills, abdominal pain, nausea, vomiting, headaches, vision changes, dysuria, or hematuria. She was admitted to in patient for her new onset atrial fibrillation and CHF exacerbation. An Echocardiogram is pending. - HOSPITAL COURSE Hospital Course: The patient required 3-4 L per nasal cannula for her hospital stay, and wears no home oxygen. She talked about being told that she has rheumatoid Lung in the past. A d-dimer was elevated at 1050, so a chest CTA was ordered showing a total of 2 acute saddle pulmonary emboli which crosses that main pulmonary artery bifurcation with near occlusive thrombus burden seen bilaterally reaching into nearly all branches with partial sparing of the right upper lobe. In addition, an echocardiogram showed right heart strain with enlarged RA, RV and an elevated PASP pressure of 68 mmHg. Preserved low limits of normal EF of 50-55%. For her atrial fibrillation, she was started on digoxin, with little to no effect and continued a-fib with RVR throughout much of today. She was then given an IV push of diltiazem 10mg, then started on 60 mg PO, also with no effect, current heart rate is 160 on telemetry. Several calls to both and [facility] were made for an urgent transport with the support of my Radiologist due to the enormity of this clot burden and the lack of specialties of [facility]. The patient was stable and transported via air-lift to ICU. Patient is in agreement, was updated. - ALLERGIES Allergies/Adverse Reactions: Allergies Allergy/AdvReac Type Severity Reaction Status Date / Time house dust AdvReac Unknown Verified 08/08/18 16:50 mold AdvReac Unknown Verified 08/08/18 16:50 pollen extracts AdvReac Unknown Verified 08/08/18 16:50 - MEDICATIONS Home Medications: Ambulatory Orders Medication Instructions Recorded Confirmed Cholecalciferol (Vitamin D3) 5,000 unit PO 08/31/16 09/28/17 [Vitamin D3] Multivitamin [Multivitamins] 1 cap PO DAILY 03/29/17 09/28/17 Mycophenolate Mofetil 1,000 mg PO BID 08/08/18 08/08/18 Sulfamethox/Trimeth 800/160 1 tab PO MOWEFR 08/08/18 08/08/18 [Bactrim Ds] predniSONE [Prednisone] 20 mg PO DAILY 08/08/18 08/08/18 - PHYSICAL EXAM AT DISCHARGE General Appearance: positive: Alert, Moderate distress, Anxious Eyes Bilateral: positive: PERRL ENT: positive: Pharynx nml, Dry mucous membranes Neck: positive: Thyroid nml, Trachea midline Respiratory: positive: Chest non-tender, Rhonchi Cardiovascular: positive: Irregularly irregular, Tachycardia, Systolic murmur, Decreased pulse(s) Peripheral Pulses: positive: 1+ Abdomen: positive: Non-tender, Nml bowel sounds, Other (rounded, soft) Back: positive: Nml inspection Skin: positive: No rash, Warm, Dry Extremities: positive: Non-tender, Full ROM, Pedal edema (mild pitting BLEs) Neurologic/Psychiatric: positive: Oriented x3, CN's nml (2-12), Motor nml, Sensation nml, Depressed mood/affect, Other (tearful at times) Reflexes: Bicep (R): 3+, Bicep (L): 3+ - LABS Result Diagrams: 08/09/18 05:49 08/09/18 05:49 - DIAGNOSTIC IMAGING Diagnostic Imaging Results: Final report reviewed, Discussed with radiologist Diagnostic Imaging Results Comments: - See images which were pushed by our radiology department. - FOLLOW UP Follow Up: Follow up with PCP, or specialist as per discharging provider. - TIME SPENT Time Spent in Discharge (Minutes): 50
[2018-08-09 17:35] VITALS: BP 108/91
--- NOTE | 2018-08-09 17:57 | Discharge Plan ---
Discharge Plan Disposition: 02 Transfer Acute Care Hosp Condition: Serious Diet: Diabetic Activity Restrictions: Additional Comments (bedrest) Additional Instructions or Follow Up instructions: transported via air lift to [facility] for Saddle PE No Smoking: If you smoke, Please STOP! Call for help. Follow-up with: Crow Daugherty MD [Primary Care Provider] -
[2018-08-10] MEDS ORDERED: MAGNESIUM OXIDE 400 MG TABLET PO SCH (08:00)
== END 2018-08-09 18:00 | disposition short-term general hospital (02) | DRG 176 ==
LOC: ED 11:08 → MS2 14:19
PROVIDERS: ADMIT Nurse Practitioner Gerontology; ATTEND Nurse Practitioner
DX: I26.92 Saddle embolus of pulmonary artery without acute cor pulmonale (principal); I50.9 Heart failure, unspecified; E87.1 Hypo-osmolality and hyponatremia; I48.91 Unspecified atrial fibrillation; I50.810 Right heart failure, unspecified; I27.29 Other secondary pulmonary hypertension; R09.02 Hypoxemia; R73.9 Hyperglycemia, unspecified; T38.0X5A Adverse effect of glucocorticoids and synthetic analogues, initial encounter; Y92.009 Unspecified place in unspecified non-institutional (private) residence as the place of occurrence of the external cause; E66.9 Obesity, unspecified; Z68.35 Body mass index [BMI] 35.0-35.9, adult; I07.1 Rheumatic tricuspid insufficiency; R79.89 Other specified abnormal findings of blood chemistry; M06.9 Rheumatoid arthritis, unspecified; K52.9 Noninfective gastroenteritis and colitis, unspecified; M19.90 Unspecified osteoarthritis, unspecified site; Z79.52 Long term (current) use of systemic steroids; Z96.649 Presence of unspecified artificial hip joint; Z90.49 Acquired absence of other specified parts of digestive tract; Z87.19 Personal history of other diseases of the digestive system
CPT/HCPCS: 36415; 71045; 71275; 80048; 80053; 80162; 81001; 82009; 83036; 83690; 83735; 83880; 84443; 84484; 85025; 85379; 87086; 93005; 93306; 96372; 96374; 96375; 96376; 99284; 99285

== ENCOUNTER 2019-03-07 09:14 | Outpatient (CLI) | payer MEDICARE ==
--- NOTE | 2019-03-07 15:23 | CT Report ---
Reason: INTERSTITIAL PULMONARY DISEASE Procedure Date: 03/07/2019 Accession Number: [id number] / [id number] Procedure: CT - CHEST WO CPT Code: Final Report FULL RESULT: EXAM: CT CHEST EXAM DATE: 03/07/2019 09:45 AM. CLINICAL HISTORY: Interstitial pulmonary disease. COMPARISONS: CHEST W/O 05/03/2018 11:43 AM CHEST ANGIO 08/09/2018 1:37 PM ABDOMEN/PELVIS W/ 07/01/2016 1:25 PM. TECHNIQUE: High-resolution noncontrast CT lun. Inspiration axial 5 mm collimation. 2. 1 mm collimation 2 mm intervals prone position. 3. 1 mm collimation 2 cm intervals supine position inspiration and exhalation. In accordance with CT protocol optimization, one or more of the following dose reduction techniques were utilized for this exam: automated exposure control, adjustment of mA and/or KV based on patient size, or use of iterative reconstructive technique. FINDINGS: Lungs/Pleura: Mild honeycombing posterior basal segment lower lobes bilaterally. Diffuse subpleural increased to coarse septal markings. Mild multifocal anterior segment right upper lobe groundglass opacity with bronchiectasis. Mild bronchiectasis subpleural anterior segment left upper lobe. Bronchiectasis lingula. Negative for infiltrate. Negative for pleural fluid. Minimal change lung base interstitial lung disease as compared to the CT abdomen and pelvis 07/01/2016. Mediastinum: Large right thyroid lobe nodule 3.3 x 2.7 cm transverse dimension (image 8 series 8) without change as compared to the pulmonary CTA 08/09/2018. Main pulmonary artery 2.9 cm. Ascending thoracic aorta 3.9 cm. Heart size is normal. Negative for pericardial fluid or pericardial thickening. Bones: Severe bilateral shoulder osteoarthritis. Large right shoulder joint fluid. Visualized Abdomen: Normal liver size and density. Liver is negative for focal defect or intrahepatic biliary dilatation. Adrenals are negative for focal nodule. Gallbladder is negative for calcified gallstones. Atrophy of the pancreas head and neck. Other: None. IMPRESSION: 1. Negative for pulmonary groundglass densities to suggest active pneumonitis. 2. Chronic interstitial lung disease lung bases with minimal change as compared to the CT abdomen and pelvis 07/01/2016. 3. Chronic interstitial lung disease with coarse subpleural septal markings, mild bronchiectasis and mild posterior basal segment honeycombing favors nonspecific interstitial pneumonia with interval change as compared to the CT lung bases 07/01/2016. Differential considerations include UIP. RADIA
== END 2019-03-07 09:15 | disposition home or self-care (01) ==
LOC: DI 09:14
PROVIDERS: ATTEND Internal Medicine Sleep Medicine
DX: J84.9 Interstitial pulmonary disease, unspecified (principal); J47.9 Bronchiectasis, uncomplicated
CPT/HCPCS: 71250

== ENCOUNTER 2019-03-21 11:13 | Outpatient (CLI) | payer MEDICARE ==
[2019-03-21 11:47] LABS: CALCIUM 9.2 mg/dL (8.5-10.3); CREATININE 0.7 mg/dL (0.4-1.0)
== END 2019-03-21 11:14 | disposition home or self-care (01) ==
LOC: LAB 11:13
PROVIDERS: ATTEND Internal Medicine Cardiovascular Disease
DX: I48.91 Unspecified atrial fibrillation (principal); I51.9 Heart disease, unspecified
CPT/HCPCS: 36415; 80048

== ENCOUNTER 2019-04-12 09:18 | Outpatient (CLI) | payer MEDICARE ==
[~2019-04-12 09:18] MED LIST changes: +ALBUTEROL NEB 2.5 MG/3 ML INH SCH; -ceFAZolin 2 GM/50 ML 2 GM/50 ML BAG IV ONE
== END 2019-04-12 09:19 | disposition home or self-care (01) ==
LOC: RT 09:18
PROVIDERS: ATTEND Internal Medicine Sleep Medicine
DX: J84.9 Interstitial pulmonary disease, unspecified (principal)
CPT/HCPCS: 94010; 94727; 94729

== ENCOUNTER 2019-07-13 10:18 | Outpatient (CLI) | payer MEDICARE ==
[2019-07-13 10:52] LABS: BASOPHILS # (AUTO) 0.1 10^3/uL (0.0-0.1); BASOPHILS % (AUTO) 1.1 %; EOSINOPHILS # (AUTO) 0.2 10^3/uL (0.0-0.7); EOSINOPHILS % (AUTO) 3.6 %; HGB - HEMOGLOBIN 13.1 g/dL (12.0-16.0); LYMPHOCYTES # (AUTO) 1.6 10^3/uL (1.5-3.5); LYMPHOCYTES % (AUTO) 24.1 %; MEAN CORPUSCULAR HEMOGLOBIN 29.8 pg (27.0-31.0); MEAN CORPUSCULAR HGB CONC 31.7 g/dL (32.0-36.0); MEAN CORPUSCULAR VOLUME 93.9 fL (81.0-99.0); MEAN PLATELET VOLUME 9.4 fL (7.9-10.8); MONOCYTES # (AUTO) 0.8 10^3/uL (0.0-1.0); MONOCYTES % (AUTO) 12.8 %; NEUTROPHILS # (AUTO) 3.7 10^3/uL (1.5-6.6); NEUTROPHILS % (AUTO) 58.1 %; PLT - PLATELET COUNT 196 10^3/uL (130-450); RED CELL DISTRIBUTION WIDTH 13.5 % (12.0-15.0); WHITE BLOOD COUNT 6.4 x10^3/uL (4.8-10.8)
[2019-07-13 11:10] LABS: ALBUMIN 3.7 g/dL (3.2-5.5); ALBUMIN/GLOBULIN RATIO 1.2 (1.0-2.2); BILIRUBIN,TOTAL 0.6 mg/dL (0.2-1.0); CALCIUM 8.8 mg/dL (8.5-10.3); CREATININE 0.7 mg/dL (0.4-1.0); TOTAL PROTEIN 6.8 g/dL (6.7-8.2)
== END 2019-07-13 10:19 | disposition home or self-care (01) ==
LOC: LAB 10:18
PROVIDERS: ATTEND Internal Medicine Hematology & Oncology
DX: I26.02 Saddle embolus of pulmonary artery with acute cor pulmonale (principal)
CPT/HCPCS: 36415; 80053; 85025; 85379

== ENCOUNTER 2019-08-16 10:50 | Outpatient (CLI) | payer MEDICARE ==
--- NOTE | 2019-08-16 12:57 | XRAY Report ---
PROCEDURE: Chest 2 View X-Ray INDICATIONS: CHEST PAIN, RIGHT TECHNIQUE: 2 view(s) of the chest. COMPARISON: Chest plain film 08/08/2018. FINDINGS: Surgical changes and devices: None. Lungs and pleura: No pleural effusions or pneumothorax. Lungs are moderately abnormal with a chroni c moderate initial prominence. A degree of pulmonary fibrosis likely is present, perhaps related to p rior smoking history. Mediastinum: Mediastinal contours are normal. Heart size is normal. Bones and chest wall: No suspicious bony abnormalities. Soft tissues appear unremarkable. IMPRESSION: Chronic interstitial prominence bilaterally, similar to that previously present, but wit hout evidence of underlying focal pneumonia or neoplasm. A surface marker is placed at the area of ma ximal tenderness over the right lateral mid chest ribs and no underlying lesion in that area is found . Reviewed by: Jaspal Abreu MD on 08/16/2019 12:56 PM PDT Approved by: Jaspal Abreu MD on 08/16/2019 12:56 PM PDT Station ID: [id number]
== END 2019-08-16 10:51 | disposition home or self-care (01) ==
LOC: DI 10:50
PROVIDERS: ATTEND Family Medicine
DX: R91.8 Other nonspecific abnormal finding of lung field (principal)
CPT/HCPCS: 71046

== ENCOUNTER 2020-01-19 10:39 | Outpatient (CLI) | payer MEDICARE ==
[2020-01-19 11:00] LABS: BASOPHILS % (AUTO) 0.7 %; EOSINOPHILS # (AUTO) 0.2 10^3/uL (0.0-0.7); EOSINOPHILS % (AUTO) 3.9 %; HGB - HEMOGLOBIN 14.1 g/dL (12.0-16.0); LYMPHOCYTES # (AUTO) 1.2 10^3/uL (1.5-3.5); LYMPHOCYTES % (AUTO) 20.1 %; MEAN CORPUSCULAR HEMOGLOBIN 29.9 pg (27.0-31.0); MEAN CORPUSCULAR HGB CONC 32.3 g/dL (32.0-36.0); MEAN CORPUSCULAR VOLUME 92.6 fL (81.0-99.0); MEAN PLATELET VOLUME 9.1 fL (7.9-10.8); MONOCYTES # (AUTO) 0.7 10^3/uL (0.0-1.0); MONOCYTES % (AUTO) 12.5 %; NEUTROPHILS # (AUTO) 3.6 10^3/uL (1.5-6.6); NEUTROPHILS % (AUTO) 62.5 %; PLT - PLATELET COUNT 204 10^3/uL (130-450); RED BLOOD COUNT 4.72 10^6/uL (4.20-5.40); RED CELL DISTRIBUTION WIDTH 13.3 % (12.0-15.0); WHITE BLOOD COUNT 5.8 x10^3/uL (4.8-10.8)
[2020-01-19 11:19] LABS: ALBUMIN 3.7 g/dL (3.2-5.5); ALBUMIN/GLOBULIN RATIO 1.1 (1.0-2.2); BILIRUBIN,TOTAL 0.7 mg/dL (0.2-1.0); CALCIUM 8.7 mg/dL (8.5-10.3); CREATININE 0.6 mg/dL (0.4-1.0); TOTAL PROTEIN 7.1 g/dL (6.7-8.2)
== END 2020-01-19 10:40 | disposition home or self-care (01) ==
LOC: LAB 10:39
PROVIDERS: ATTEND Internal Medicine Hematology & Oncology
DX: I26.02 Saddle embolus of pulmonary artery with acute cor pulmonale (principal)
CPT/HCPCS: 36415; 80053; 85025; 85379

== ENCOUNTER 2020-04-19 13:50 | Outpatient (CLI) | payer MEDICARE ==
[2020-04-19 14:16] LABS: BASOPHILS % (AUTO) 0.7 %; EOSINOPHILS # (AUTO) 0.2 10^3/uL (0.0-0.7); EOSINOPHILS % (AUTO) 3.6 %; HCT - HEMATOCRIT 43.5 % (37.0-47.0); LYMPHOCYTES # (AUTO) 1.6 10^3/uL (1.5-3.5); LYMPHOCYTES % (AUTO) 26.4 %; MEAN CORPUSCULAR HEMOGLOBIN 29.9 pg (27.0-31.0); MEAN CORPUSCULAR HGB CONC 32.2 g/dL (32.0-36.0); MEAN CORPUSCULAR VOLUME 92.8 fL (81.0-99.0); MEAN PLATELET VOLUME 9.3 fL (7.9-10.8); MONOCYTES # (AUTO) 0.7 10^3/uL (0.0-1.0); MONOCYTES % (AUTO) 10.7 %; NEUTROPHILS # (AUTO) 3.6 10^3/uL (1.5-6.6); NEUTROPHILS % (AUTO) 58.3 %; PLT - PLATELET COUNT 197 10^3/uL (130-450); RED BLOOD COUNT 4.69 10^6/uL (4.20-5.40); RED CELL DISTRIBUTION WIDTH 13.3 % (12.0-15.0); WHITE BLOOD COUNT 6.1 x10^3/uL (4.8-10.8)
[2020-04-19 14:32] LABS: ALBUMIN 3.9 g/dL (3.2-5.5); ALBUMIN/GLOBULIN RATIO 1.3 (1.0-2.2); ALKALINE PHOSPHATASE 95 IU/L (42-121); ALT ALANINE AMINOTRANSFERASE 28 IU/L (10-60); AST ASPARTATE AMINOTRANSFERASE 31 IU/L (10-42); BILIRUBIN,TOTAL 0.7 mg/dL (0.2-1.0); BUN - BLOOD UREA NITROGEN 13 mg/dL (6-20); CALCIUM 9.3 mg/dL (8.5-10.3); CARBON DIOXIDE - CO2 25 mmol/L (21-32); CHLORIDE 104 mmol/L (101-111); CREATININE 0.6 mg/dL (0.4-1.0); GFR - MDRD 98 (>89); GLUCOSE 136 mg/dL (70-100); POTASSIUM 3.8 mmol/L (3.5-5.0); SODIUM 139 mmol/L (135-145)
[2020-04-19 14:38] LABS: CRP - C-REACTIVE PROTEIN < 1.0 mg/dL (0-1.0)
== END 2020-04-19 13:51 | disposition home or self-care (01) ==
LOC: LAB 13:50
PROVIDERS: ATTEND Internal Medicine Rheumatology
DX: M05.9 Rheumatoid arthritis with rheumatoid factor, unspecified (principal)
CPT/HCPCS: 36415; 80053; 85025; 85651; 86140

== ENCOUNTER 2020-07-16 09:39 | Outpatient (CLI) | payer MEDICARE ==
[2020-07-16 09:57] LABS: BASOPHILS # (AUTO) 0.1 10^3/uL (0.0-0.1); BASOPHILS % (AUTO) 0.9 %; EOSINOPHILS # (AUTO) 0.2 10^3/uL (0.0-0.7); EOSINOPHILS % (AUTO) 3.1 %; HCT - HEMATOCRIT 45.4 % (37.0-47.0); HGB - HEMOGLOBIN 14.9 g/dL (12.0-16.0); LYMPHOCYTES # (AUTO) 1.6 10^3/uL (1.5-3.5); LYMPHOCYTES % (AUTO) 23.8 %; MEAN CORPUSCULAR HEMOGLOBIN 30.2 pg (27.0-31.0); MEAN CORPUSCULAR HGB CONC 32.8 g/dL (32.0-36.0); MEAN CORPUSCULAR VOLUME 91.9 fL (81.0-99.0); MEAN PLATELET VOLUME 9.2 fL (7.9-10.8); MONOCYTES # (AUTO) 0.8 10^3/uL (0.0-1.0); MONOCYTES % (AUTO) 12.1 %; NEUTROPHILS % (AUTO) 59.8 %; PLT - PLATELET COUNT 205 10^3/uL (130-450); RED BLOOD COUNT 4.94 10^6/uL (4.20-5.40); RED CELL DISTRIBUTION WIDTH 13.5 % (12.0-15.0); WHITE BLOOD COUNT 6.7 x10^3/uL (4.8-10.8)
[2020-07-16 10:09] LABS: ALBUMIN 3.9 g/dL (3.2-5.5); ALBUMIN/GLOBULIN RATIO 1.2 (1.0-2.2); BILIRUBIN,TOTAL 0.7 mg/dL (0.2-1.0); CALCIUM 9.2 mg/dL (8.5-10.3); CREATININE 0.7 mg/dL (0.4-1.0); POTASSIUM 3.9 mmol/L (3.5-5.0); TOTAL PROTEIN 7.2 g/dL (6.7-8.2)
== END 2020-07-16 09:40 | disposition home or self-care (01) ==
LOC: LAB 09:39
PROVIDERS: ATTEND Internal Medicine Hematology & Oncology
DX: I26.02 Saddle embolus of pulmonary artery with acute cor pulmonale (principal)
CPT/HCPCS: 36415; 80053; 85025; 85379

== ENCOUNTER 2020-10-08 16:04 | Outpatient (CLI) | payer MEDICARE | END 2020-10-08 16:05 | disposition home or self-care (01) | LOC: COV 16:04 | PROVIDERS: ATTEND Internal Medicine Cardiovascular Disease | DX: Z01.812 Encounter for preprocedural laboratory examination (principal); I48.91 Unspecified atrial fibrillation; I36.1 Nonrheumatic tricuspid (valve) insufficiency; Z20.822 Contact with and (suspected) exposure to COVID-19 ==

== ENCOUNTER 2020-10-09 09:29 | Outpatient (CLI) | payer MEDICARE ==
[2020-10-09 10:16] LABS: INR 1.7 (0.8-1.2); PT - PROTHROMBIN TIME 18.5 secs (9.9-12.6)
[2020-10-09 10:37] LABS: ALBUMIN 3.8 g/dL (3.2-5.5); ALBUMIN/GLOBULIN RATIO 1.2 (1.0-2.2); BILIRUBIN,TOTAL 0.6 mg/dL (0.2-1.0); CALCIUM 9.1 mg/dL (8.5-10.3); CREATININE 0.7 mg/dL (0.4-1.0); MAGNESIUM 1.9 mg/dL (1.7-2.8)
== END 2020-10-09 09:30 | disposition home or self-care (01) ==
LOC: LAB 09:29
PROVIDERS: ATTEND Internal Medicine Cardiovascular Disease
DX: I48.91 Unspecified atrial fibrillation (principal); I27.20 Pulmonary hypertension, unspecified
CPT/HCPCS: 36415; 80053; 83735; 84443; 85610

== ENCOUNTER 2021-05-12 09:32 | Outpatient (CLI) | payer MEDICARE ==
[2021-05-12 10:00] LABS: CALCIUM 9.1 mg/dL (8.5-10.3); CREATININE 0.9 mg/dL (0.4-1.0); POTASSIUM 3.7 mmol/L (3.5-5.0)
== END 2021-05-12 09:33 | disposition home or self-care (01) ==
LOC: LAB 09:32
PROVIDERS: ATTEND Physician Assistant Medical
DX: I48.91 Unspecified atrial fibrillation (principal)
CPT/HCPCS: 36415; 80048

== ENCOUNTER 2022-08-18 08:37 | Outpatient (CLI) | payer MEDICARE ==
[2022-08-18 08:58] LABS: BASOPHILS # (AUTO) 0.1 10^3/uL (0.0-0.1); BASOPHILS % (AUTO) 0.6 %; EOSINOPHILS # (AUTO) 0.2 10^3/uL (0.0-0.7); EOSINOPHILS % (AUTO) 2.9 %; HCT - HEMATOCRIT 36.4 % (37.0-47.0); HGB - HEMOGLOBIN 11.2 g/dL (12.0-16.0); LYMPHOCYTES # (AUTO) 0.9 10^3/uL (1.5-3.5); LYMPHOCYTES % (AUTO) 11.3 %; MEAN CORPUSCULAR HEMOGLOBIN 27.5 pg (27.0-31.0); MEAN CORPUSCULAR HGB CONC 30.8 g/dL (32.0-36.0); MEAN CORPUSCULAR VOLUME 89.4 fL (81.0-99.0); MEAN PLATELET VOLUME 8.6 fL (7.9-10.8); MONOCYTES # (AUTO) 0.7 10^3/uL (0.0-1.0); MONOCYTES % (AUTO) 9.1 %; NEUTROPHILS % (AUTO) 75.5 %; PLT - PLATELET COUNT 307 10^3/uL (130-450); RED BLOOD COUNT 4.07 10^6/uL (4.20-5.40); RED CELL DISTRIBUTION WIDTH 15.6 % (12.0-15.0); WHITE BLOOD COUNT 7.9 x10^3/uL (4.8-10.8)
[2022-08-18 09:17] LABS: ALBUMIN 2.8 g/dL (3.2-5.5); ALBUMIN/GLOBULIN RATIO 0.6 (1.0-2.2); BILIRUBIN,TOTAL 0.3 mg/dL (0.2-1.0); CALCIUM 8.6 mg/dL (8.5-10.3); CREATININE 0.6 mg/dL (0.4-1.0); POTASSIUM 3.6 mmol/L (3.5-5.0); TOTAL PROTEIN 7.2 g/dL (6.7-8.2)
== END 2022-08-18 08:38 | disposition home or self-care (01) ==
LOC: LAB 08:37
PROVIDERS: ATTEND Internal Medicine Rheumatology
DX: M05.9 Rheumatoid arthritis with rheumatoid factor, unspecified (principal)
CPT/HCPCS: 36415; 80053; 85025; 85651; 86140

== ENCOUNTER 2022-09-10 05:25 | Emergency (ER) | payer MEDICARE ==
--- OUTSIDE RECORDS SUMMARY | 2022-09-10 05:32 | EXTERNAL MEDICAL SUMMARY RPT | Continuity of Care Document ---
Author Name Unknown Address [address] [id number] Phone Organization [facility] Address [address] [phone] Phone Care Team Providers Care Punching Machine Operator Name Role Phone Unavailable Unavailable Unavailable Results/Labs test date facility value unit notes
[2022-09-10] MEDS ORDERED: METOPROLOL SUCCINATE 50 MG TABLET PO STA (05:59)
[2022-09-10 06:01] LABS: BASOPHILS # (AUTO) 0.1 10^3/uL (0.0-0.1); BASOPHILS % (AUTO) 0.8 %; EOSINOPHILS # (AUTO) 0.2 10^3/uL (0.0-0.7); EOSINOPHILS % (AUTO) 1.7 %; HCT - HEMATOCRIT 34.3 % (37.0-47.0); HGB - HEMOGLOBIN 10.5 g/dL (12.0-16.0); LYMPHOCYTES # (AUTO) 1.4 10^3/uL (1.5-3.5); LYMPHOCYTES % (AUTO) 13.2 %; MEAN CORPUSCULAR HEMOGLOBIN 27.4 pg (27.0-31.0); MEAN CORPUSCULAR HGB CONC 30.6 g/dL (32.0-36.0); MEAN CORPUSCULAR VOLUME 89.6 fL (81.0-99.0); MEAN PLATELET VOLUME 8.9 fL (7.9-10.8); MONOCYTES % (AUTO) 9.2 %; NEUTROPHILS # (AUTO) 7.7 10^3/uL (1.5-6.6); NEUTROPHILS % (AUTO) 74.2 %; PLT - PLATELET COUNT 318 10^3/uL (130-450); RED BLOOD COUNT 3.83 10^6/uL (4.20-5.40); RED CELL DISTRIBUTION WIDTH 15.9 % (12.0-15.0); WHITE BLOOD COUNT 10.4 x10^3/uL (4.8-10.8)
--- NOTE | 2022-09-10 06:02 | ED Physician Documentation ---
PD HPI CHEST PAIN - Stated complaint Stated Complaint: CHEST PX - Chief complaint Chief Complaint: Cardiac - History obtained from History obtained from: Patient - Additional information Additional information: 77yF with pmh afib on eliquis s/p ablation and multiple cardioversions, most recent yesterday by Dr. Carolina, p/w midsternal chest pain radiating across the chest, pinching intermittently since 0200. denies n/v. does feel like she's having trouble taking a deep breath. denies hemoptysis, cough. does have hx PE. 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 HEENT: Tonsil/Adenoidectomy - Present Medications Home Medications: Ambulatory Orders Medication Instructions Recorded Confirmed Apixaban [Eliquis] 5 mg ORAL BID 09/09/22 09/10/22 Furosemide [Lasix] 40 mg PO DAILY 09/09/22 09/10/22 Leflunomide [Arava] 20 mg PO DAILY 09/09/22 09/10/22 Lisinopril [Zestril] 2.5 mg PO DAILY 09/09/22 09/10/22 Metoprolol Succinate [Toprol Xl] 50 mg PO DAILY 09/09/22 09/10/22 Spironolactone [Aldactone] 25 mg PO DAILY 09/09/22 09/10/22 mycophenolate mofetiL 1,500 mg PO BID 09/09/22 09/10/22 [Mycophenolate Mofetil] Atorvastatin [Lipitor] 10 mg PO DAILY 09/10/22 09/10/22 - Allergies Allergies/Adverse Reactions: Allergies Allergy/AdvReac Type Severity Reaction Status Date / Time house dust AdvReac Unknown Verified 09/10/22 05:41 mold AdvReac Unknown Verified 09/10/22 05:41 pollen extracts AdvReac Unknown Verified 09/10/22 05:41 - Social History Does the pt smoke?: No Smoking Status: Never smoker Does the pt drink ETOH?: Yes Does the pt have substance abuse?: Yes - Immunizations Immunizations are current?: Yes PD ED PE NORMAL - Vitals Vital signs reviewed: Yes - General General: Alert and oriented X 3, No acute distress, Well developed/nourished - HEENT HEENT: Atraumatic, PERRL, EOMI, Moist mucous membranes, Pharynx benign - Neck Neck: Supple, no meningeal sign - Cardiac Cardiac: RRR - Respiratory Respiratory: No respiratory distress, Clear bilaterally Results - Vitals Vitals: Vital Signs - 24 hr 09/10/22 09/10/22 09/10/22 05:27 06:07 07:03 Temperature 36.0 C L Heart Rate 87 86 80 Respiratory 23 18 21 Rate Blood Pressure 157/88 H 124/72 133/73 H O2 Saturation 96 96 97 09/10/22 07:30 Temperature Heart Rate 85 Respiratory 12 Rate Blood Pressure 115/50 L O2 Saturation 95 Oxygen O2 Source Room air - EKG (time done) 0533 EKG releavant findings:: EKG personally interpreted by author of this note. Relevant findings are: Rate: Rate (enter#) (90) Rhythm: NSR [place]: LAD (borderline) Intervals: Normal [place] QRS: Normal Ischemia: Other (no stemi) Other comments: Other comments (multiple PVCs) - Labs Labs: Laboratory Tests 09/10/22 09/10/22 09/10/22 05:45 05:45 05:45 WBC 10.4 RBC 3.83 L Hgb 10.5 L Hct 34.3 L MCV 89.6 MCH 27.4 MCHC 30.6 L RDW 15.9 H Plt Count 318 MPV 8.9 Neut # (Auto) 7.7 H Lymph # (Auto) 1.4 L [place] # (Auto) 1.0 Eos # (Auto) 0.2 Baso # (Auto) 0.1 Absolute Nucleated RBC 0.00 Nucleated RBC % 0.0 D-Dimer Sodium 133 L Potassium 4.0 Chloride 97 L Carbon Dioxide 27 Anion Gap 9.0 BUN 8 Creatinine 0.6 Estimated GFR (MDRD) 97 Glucose 180 H Calcium 9.0 Total Bilirubin 0.6 AST 15 ALT 8 L Alkaline Phosphatase 114 Troponin I High Sens 8.4 Total Protein 7.1 Albumin 3.2 Globulin 3.9 Albumin/Globulin Ratio 0.8 L Lipase 4 L 09/10/22 07:35 WBC RBC Hgb Hct MCV MCH MCHC RDW Plt Count MPV Neut # (Auto) Lymph # (Auto) [place] # (Auto) Eos # (Auto) Baso # (Auto) Absolute Nucleated RBC Nucleated RBC % D-Dimer 297.7 H Sodium Potassium Chloride Carbon Dioxide Anion Gap BUN Creatinine Estimated GFR (MDRD) Glucose Calcium Total Bilirubin AST ALT Alkaline Phosphatase Troponin I High Sens Total Protein Albumin Globulin Albumin/Globulin Ratio Lipase PD Medical Decision Making - ED course ED course: 77yF with pmh afib, PE, p/w chest pain a day after her electrical cardioversion for afib with ekg showing multiple pvcs and frequent pvcs on the monitor. cardiac workup including cbc, abdominal panel, troponin, cxr undertaken. Stable anemia with hb 11.2 yesterday and 10.5 today. troponin negative and abdominal panel benign. CXR looks similar to prior on my wet read. Patient took asa 162 prior to arrival and is administered morphine 4mg iv here in the ED for 8/10 chest pain. Age adjusted d-dimer negative. call placed to [facility] cardiology. plan to endorse to incoming daytime ED MD at 7am shift change. Departure - Departure Clinical Impression: Chest pain Condition: Stable Instructions: ED Chest Pain Atypical Unkn Cause Comments: You were seen in the ED for chest pain. Your labwork uncovered no emergent cause for your symptoms. Please follow up with Dr. Heller and return to the ED for new or worsening symptoms or other concerns.
[2022-09-10 06:25] LABS: ALBUMIN 3.2 g/dL (3.2-5.5)
[2022-09-10 06:29] LABS: ALBUMIN/GLOBULIN RATIO 0.8 (1.0-2.2); BILIRUBIN,TOTAL 0.6 mg/dL (0.2-1.0); CREATININE 0.6 mg/dL (0.6-1.3); TOTAL PROTEIN 7.1 g/dL (6.4-8.9)
[2022-09-10] MEDS ORDERED: ASPIRIN 325 MG TABLET PO STA (06:37)
[2022-09-10] MEDS ORDERED: MORPHINE 2 MG/ML CARPUJECT IVP STA (06:47)
[2022-09-10] MEDS ORDERED: KETOROLAC 15 MG/ML VIAL IVP STA (08:30)
[2022-09-10] MEDS ORDERED: HYDROmorphone 1 MG/ML CARPUJECT IVP STA (08:30)
--- NOTE | 2022-09-10 08:50 | XRAY Report ---
PROCEDURE: Chest 1 View X-Ray INDICATIONS: Chest Pain TECHNIQUE: One view of the chest was acquired. COMPARISON: CT and radiograph 08/04/2021 FINDINGS: Surgical changes and devices: None. Lungs and pleura: Peripheral reticulation of the lungs, right greater than left. Mediastinum: Cardiomegaly. Bones and chest wall: No suspicious bony lesions. Overlying soft tissues appear unremarkable. IMPRESSION: Peripheral reticulation of the lungs, right greater than left. Differential includes interstitial arsenio g disease, pulmonary edema, atypical infection. Given similar findings from 2021, interstitial lung d isease is suspected. Superimposed process not excluded. Findings are concordant with preliminary interpretation provided by [facility]. Reviewed by: Andrés Campos on 09/10/2022 8:49 AM PDT Approved by: Andrés Campos on 09/10/2022 8:49 AM PDT Station ID: [id number]
[2022-09-10] MEDS ORDERED: iohexoL-300 100 ML VIAL ONE (08:51)
[2022-09-10 10:15] VITALS: BP 120/77
[2022-09-10] MEDS ORDERED: iohexoL-300 100 ML VIAL IVP ONE (10:23)
--- NOTE | 2022-09-10 10:54 | CT Report ---
PROCEDURE: ANGIO CHEST W/WO INDICATIONS: chest pain; cardioversion yest; eval aorta CONTRAST: Omni 300 100ml TECHNIQUE: After the administration of intravenous contrast, 2 mm axial images were acquired from the pulmonary apices to the posterior costophrenic angles during the arterial phase. In addition, 1 mm lung kernel and 5 mm soft tissue kernel reconstructions were performed. 3-dimensional coronal oblique maximum int ensity projection (MIP) reformats, 8 mm axial MIP, and 5 mm coronal and sagittal MPR reformats were t hen performed through the thorax. For radiation dose reduction, the following was used: automated exp osure control, adjustment of mA and/or kV according to patient size. COMPARISON: CT angiogram of the chest dated 09/03/2021 FINDINGS: Image quality: Excellent. Large vessels: No acute pulmonary emboli are identified. There is prominence of the central pulmonary arterial structures, involving both main pulmonary arteries, with the left main pulmonary artery rickie suring 3.2 cm in diameter, suggesting pulmonary arterial hypertension. No evidence of acute aortic sy ndrome or aortic aneurysm. Thoracic aorta is unremarkable. There is normal variant bovine arch anato my. SMA and celiac are patent. Lungs and pleura: No consolidation. No pleural effusions. No pneumothorax. No suspicious pulmonary n odules which require follow up. Diffuse changes of chronic interstitial pulmonary fibrosis, stable. Mediastinum: Mild cardiomegaly with enlargement of both ventricles and the left atrium. No pericardia l effusion. No large vessel abnormality. No mediastinal adenopathy by size criteria. Chest wall and lower neck: Thyroid goiter with multiple small nodules. No axillary or supraclavicular adenopathy by size. Bones: No aggressive osseous abnormality. Upper Abdomen: Unremarkable. IMPRESSION: 1. Unremarkable thoracic aorta. 2. No acute pulmonary emboli. 3. Findings suggest pulmonary arterial hypertension. 4. Cardiomegaly. 5. Chronic interstitial pulmonary fibrosis. 6. Thyroid goiter. Reviewed by: Guero Rodriguez MD on 09/10/2022 10:53 AM PDT Approved by: Guero Rodriguez MD on 09/10/2022 10:53 AM PDT Station ID: [id number]
--- NOTE | 2022-09-10 11:55 | ED Physician Documentation ---
ED Addendum - Addendum Addendum: 09/10/22 11:53 The patient had a repeat troponin ordered and pending. It subsequently returned in the normal range. She still had significant degree of pain in the chest and seemed uncomfortable even to find a good position. There was some musculoskeletal component with movement and deep breathing. She had had cardioversion yesterday so consideration would be other deep tissue structure injuries. Highest on the list would be endovascular such as aortic dissection or lung such as occult pneumothorax. With these considerations in the degree of discomfort still, and collaboration with the patient we decided to do a CT of the chest to look for other abnormalities.This did not show any obvious abnormalities. We will continue with the conclusion of musculoskeletal pain. She is on anticoagulants but she was given a dose of Dilaudid and Toradol here with considerable improvement in her discomfort. She does feel able to be discharged on recheck and states her pain is very mild at this time. However in conjunction with anticoagulants, she should not take more than episo dic NSAIDs at most. We could do serial anti-inflammatories if this persists. Otherwise Tylenol regularly for the next several days and adding pain medicine if needed. Disposition: The patient is discharged home in stable condition. Diagnoses: 1. Anterior chest pain 2. Musculoskeletal chest pain 3. Status post cardioversion
== END 2022-09-10 11:56 | disposition home or self-care (01) ==
LOC: ED 05:25
DX: R07.9 Chest pain, unspecified (principal); R07.89 Other chest pain; I48.91 Unspecified atrial fibrillation; Z79.01 Long term (current) use of anticoagulants
CPT/HCPCS: 36415; 71045; 71275; 80053; 83690; 84484; 85025; 85379; 93005; 96374; 96375; 99283; 99284; A9270; J1170; Q9967

== ENCOUNTER 2023-06-17 10:36 | Outpatient (CLI) | payer MEDICARE ==
--- NOTE | 2023-06-17 16:36 | Ultrasound Report ---
PROCEDURE: Abdomen Limited INDICATIONS: ELEVATED ALK PHOS TECHNIQUE: Real-time focused scanning was performed of the abdomen, with image documentation. COMPARISONS: CT abdomen pelvis 07/01/2016 FINDINGS: Liver: Liver is normal in size and echogenic in echotexture. Gallbladder: No stones. Wall thickness measures 1.7 mm. Biliary ducts: Intrahepatic bile ducts are non-dilated. Extrahepatic bile duct caliber measures 5 m m. Normal is 6-7 mm or less in diameter, or 10 mm or less post-cholecystectomy. Pancreas: Visualized portions of the pancreas are sonographically normal. Right kidney: Normal in size and echotexture. Right kidney measures 9.8 cm long. No hydronephrosis o r nephrolithiasis. No solid masses. No complex renal cystic lesions which require follow-up. Aorta: Visualized aorta is normal in caliber at less than 3 cm. IVC: Intrahepatic inferior vena cava is patent. Miscellaneous: No free abdominal fluid. IMPRESSION: Mild hepatic steatosis. Reviewed by: Ayana Garcia MD on 06/17/2023 4:35 PM PDT Approved by: Ayana Garcia MD on 06/17/2023 4:35 PM PDT Station ID: [id number]
== END 2023-06-17 10:37 | disposition home or self-care (01) ==
LOC: DI 10:36
PROVIDERS: ATTEND Internal Medicine
DX: R74.8 Abnormal levels of other serum enzymes (principal); K76.0 Fatty (change of) liver, not elsewhere classified

== ENCOUNTER 2023-07-01 11:44 | Outpatient (CLI) | payer MEDICARE ==
[2023-07-01] MEDS ORDERED: DIATRIZOATE MEGLU/DIATRIZO SOD 30 ML BOTTLE PO ONE (11:58)
[2023-07-01] MEDS ORDERED: iohexoL-300 100 ML VIAL ONE (11:58)
[2023-07-01 12:19] LABS: CREATININE 1.3 mg/dL (0.6-1.3)
--- NOTE | 2023-07-01 15:36 | CT Report ---
PROCEDURE: Angio Chest INDICATIONS: UNEXPLAINED WEIGHT LOSS, HIST OF PULMONARY EMBOLUS CONTRAST: Omni 300 80ml TECHNIQUE: After the administration of intravenous contrast, 2 mm axial images were acquired from the pulmonary apices to the posterior costophrenic angles during the arterial phase. In addition, 1 mm lung kernel and 5 mm soft tissue kernel reconstructions were performed. 3-dimensional coronal oblique maximum int ensity projection (MIP) reformats, 8 mm axial MIP, and 5 mm coronal and sagittal MPR reformats were t hen performed through the thorax. For radiation dose reduction, the following was used: automated exp osure control, adjustment of mA and/or kV according to patient size. COMPARISON: 09/10/2022. FINDINGS: Image quality: Excellent. Large vessels: No acute pulmonary emboli. Again noted is prominence of the bilateral main pulmonary a rteries suggesting probable pulmonary arterial hypertension. The thoracic aorta has a normal caliber. No dissection. Lungs and pleura: Diffuse changes of chronic pulmonary interstitial fibrosis are again noted. No pleu ral effusions. No pneumothorax. No suspicious pulmonary nodules which require follow up. Mediastinum: Again noted is mild cardiomegaly with bilateral ventricular enlargement and left atrial enlargement. No pericardial effusion.. No large vessel abnormality. No mediastinal adenopathy by size criteria. Chest wall and lower neck: Again noted is a thyroid goiter. No axillary or supraclavicular adenopathy by size. Bones: No aggressive osseous abnormality. Upper Abdomen: Unremarkable. IMPRESSION: 1.No pulmonary embolus. 2. No acute pulmonary process 3. Changes of chronic interstitial pulmonary fibrosis. 4. Cardiomegaly. 5. Findings suggesting probable pulmonary arterial hypertension. Reviewed by: Guero Rodriguez MD on 07/01/2023 3:35 PM PDT Approved by: Guero Rodriguez MD on 07/01/2023 3:35 PM PDT Station ID: [id number]
[2023-07-01] MEDS: DIATRIZOATE MEGLU/DIATRIZO SOD 30 ML BOTTLE PO ONE (16:19)
[2023-07-01] MEDS: iohexoL-300 100 ML VIAL IVP ONE (16:19)
--- NOTE | 2023-07-01 16:39 | CT Report ---
PROCEDURE: Abdomen/Pelvis W INDICATIONS: UNEXPLAINED WEIGHT LOSS, HIST OF PULMONARY EMBOLUS CONTRAST: Omni 300 80ml TECHNIQUE: After the administration of intravenous contrast, a CT scan of the abdomen and pelvis was performed. Images were recorded and evaluated at appropriate window settings. Reformats: coronal and sagittal. F or radiation dose reduction, the following was used: automated exposure control, adjustment of mA and /or kV according to patient size. COMPARISON: CT 09/20/2022, ultrasound 06/17/2023 FINDINGS: Image quality: Diagnostic. Lower chest: Interstitial lung disease of the lung bases, not significantly progressed from prior. Ca rdiomegaly, stable. Liver: No solid mass. Focal fat adjacent to the falciform ligament. Gallbladder and biliary tree: No radiopaque stones or wall thickening. No biliary dilation. Spleen: No splenomegaly. Subcentimeter hypoattenuating lesion along the peripheral margin, likely a b enign pseudocyst. Pancreas: No pancreatic ductal dilation. Adrenals: No adrenal nodule. Kidneys and ureters: No hydronephrosis. No renal cystic lesion which requires follow up. No solid mas s. Stomach, bowel and peritoneum: Partial colectomy, surgical anastomosis in the deep pelvis. There is d iffuse colonic wall thickening, including the appendix. Lymph nodes: No central or retroperitoneal adenopathy. Vessels: No infrarenal aortic aneurysm. Patent portal vein. PELVIS Reproductive organs: Unremarkable. Bladder: No abnormal wall thickening, accounting for underdistention. Pelvic lymph nodes: No pelvic adenopathy by size criteria. Bones: No aggressive osseous abnormality. Degenerative changes of the spine. Grade 1 anterolisthesis of L4 on L5 secondary to facet arthrosis. Right total hip arthroplasty. Other: Supraumbilical hernia containing a knuckle of nonobstructed small bowel (series 3, image 85). The neck measures 2.2 cm. Additional, periumbilical, fat-containing hernias. IMPRESSION: Prior partial colectomy. Diffuse wall thickening of the remaining colon, concerning for pancolitis. Wall thickening does include the appendix. Correlate with leukocytosis and right lower quadrant pain to exclude appendicitis. No findings to explain the patient's unintentional weight loss. Interstitial lung disease, not significantly progressed since 2022. Supra umbilical hernia containing a knuckle of nonobstructed small bowel wall. Reviewed by: Andrés Campos MD on 07/01/2023 4:38 PM PDT Approved by: Andrés Campos MD on 07/01/2023 4:38 PM PDT Station ID: [id number]
== END 2023-07-01 11:45 | disposition home or self-care (01) ==
LOC: LAB 11:44
PROVIDERS: ATTEND Internal Medicine
DX: R53.1 Weakness (principal); R63.4 Abnormal weight loss; R74.8 Abnormal levels of other serum enzymes; Z79.899 Other long term (current) drug therapy; Z86.711 Personal history of pulmonary embolism; Z90.49 Acquired absence of other specified parts of digestive tract; R93.3 Abnormal findings on diagnostic imaging of other parts of digestive tract; K43.9 Ventral hernia without obstruction or gangrene; J84.10 Pulmonary fibrosis, unspecified; I51.7 Cardiomegaly
CPT/HCPCS: 36415; 71275; 74177; 82565; Q9963; Q9967

== ENCOUNTER 2023-10-21 09:18 | Outpatient (CLI) | payer MEDICARE ==
[2023-10-21 09:40] LABS: CALCIUM 9.6 mg/dL (8.5-10.3); CREATININE 1.3 mg/dL (0.6-1.3); POTASSIUM 4.3 mmol/L (3.5-4.5)
== END 2023-10-21 09:19 | disposition home or self-care (01) ==
LOC: LAB 09:18
PROVIDERS: ATTEND Internal Medicine Cardiovascular Disease
DX: I48.0 Paroxysmal atrial fibrillation (principal)
CPT/HCPCS: 36415; 80048

== ENCOUNTER 2023-10-29 09:09 | Outpatient (CLI) | payer MEDICARE ==
[2023-10-29 09:34] LABS: CALCIUM 9.5 mg/dL (8.5-10.3); CREATININE 1.5 mg/dL (0.6-1.3); POTASSIUM 4.2 mmol/L (3.5-4.5)
== END 2023-10-29 09:10 | disposition home or self-care (01) ==
LOC: LAB 09:09
PROVIDERS: ATTEND Internal Medicine Cardiovascular Disease
DX: I48.0 Paroxysmal atrial fibrillation (principal)
CPT/HCPCS: 36415; 80048

== ENCOUNTER 2023-11-05 09:28 | Outpatient (CLI) | payer MEDICARE ==
[2023-11-05 09:53] LABS: CALCIUM 9.8 mg/dL (8.5-10.3); CREATININE 1.9 mg/dL (0.6-1.3); POTASSIUM 4.6 mmol/L (3.5-4.5)
== END 2023-11-05 09:29 | disposition home or self-care (01) ==
LOC: LAB 09:28
PROVIDERS: ATTEND Internal Medicine Cardiovascular Disease
DX: I48.0 Paroxysmal atrial fibrillation (principal)
CPT/HCPCS: 36415; 80048

== ENCOUNTER 2023-11-08 09:36 | Outpatient (CLI) | payer MEDICARE ==
[2023-11-08 09:57] LABS: CALCIUM 9.5 mg/dL (8.5-10.3); CREATININE 1.2 mg/dL (0.6-1.3); POTASSIUM 3.7 mmol/L (3.5-4.5)
== END 2023-11-08 09:37 | disposition home or self-care (01) ==
LOC: LAB 09:36
PROVIDERS: ATTEND Internal Medicine Cardiovascular Disease
DX: I48.0 Paroxysmal atrial fibrillation (principal)
CPT/HCPCS: 36415; 80048